=== PATIENT | male | born 1950 | race Caucasian/White ===

== ENCOUNTER 2020-01-10 11:14 | Emergency (ER) | payer OTHER, SELFPAY ==
[2020-01-10 11:26] VITALS: BP 155/103; PULSE 74; RESP 16; TEMP 36.4; O2SAT 97; BMI 24.5
--- NOTE | 2020-01-10 11:29 | PC.NURSE ---
Addendum entered by Ondina Hylton R.N. 01/10/20 11:30: on arrival, ambulate with steady gait, when laying down, pt unable to hyperflexion of left foot. Original Note: pt reports, fell between bail of hay, 3 weeks ago, since then unable to hyperextend left foot, denies feeling snap or popping of left foot. has been taking acetaminophen with relief.
--- NOTE | 2020-01-10 11:44 | DI.RAD.S_ITS ---
PROCEDURE: XR ANKLE LT MIN 3V INDICATIONS: pain after twisting TECHNIQUE: 3 views of the ankle were acquired. COMPARISON: [facility], CR, XR FOOT LT MIN 3V, 01/10/2020, 11:40. FINDINGS: Bones: No fractures or dislocations. Ankle mortise is normally aligned. No suspicious bony lesions. The talar dome demonstrates no leandro abnormality. Soft tissues: No tibiotalar joint effusion. Achilles tendon appears normal. IMPRESSION: No acute plain film abnormality can be seen. Dictated by: Stanford Candelaria M.D. on 01/10/2020 at 11:11 Approved by: Stanford Candelaria M.D. on 01/10/2020 at 11:12
--- NOTE | 2020-01-10 11:44 | DI.RAD.S_ITS ---
PROCEDURE: XR FOOT LT MIN 3V INDICATIONS: pain after twist TECHNIQUE: 3 views of the foot were acquired. COMPARISON: None. FINDINGS: Bones: No fractures or dislocations. No suspicious bony lesions. Soft tissues: No tibiotalar joint effusion. Achilles tendon appears normal. IMPRESSION: No displaced fractures are seen on these plain films. If there is focal tenderness, or other clinical concern for a fracture not seen on these images in this patient with a given history of trauma, please consider a dedicated CT or a short-term followup plain film series (in 1-2 weeks) for further evaluation. Dictated by: Stanford Candelaria M.D. on 01/10/2020 at 11:07 Approved by: Stanford Candelaria M.D. on 01/10/2020 at 11:07
--- NOTE | 2020-01-10 11:58 | ED_ITS ---
HPI - Extremity Injury (Lower) <DANICA Levine - Last Filed: 01/10/20 15:24> General Chief Complaint: Extremity Injury, Lower Stated Complaint: trouble walking/ left foot Time Seen by Provider: 01/10/20 11:25 Source: patient and family Mode of arrival: Ambulatory Limitations: no limitations History of Present Illness HPI Narrative: The patient is a 69-year-old current smoker who denies pertinent medical history presents with a chief complaint of left foot and ankle pain and problems since 3 weeks ago. He states that he post hold with his left leg into a hay and then fell, since then he has had trouble with pain off and on in his foot and ankle as well as trouble picking his toes up to his nose. He states that his range of motion improves Blood when he takes Tylenol. He has not had Tylenol in a few days. He denies any popping or cracking at this point time. Denies any other injury from the fall. He does not have a primary care provider. Related Data Allergies Allergy/AdvReac Type Severity Reaction Status Date / Time No Known Drug Allergies Allergy Verified 01/10/20 13:44 Review of Systems <DANICA Levine - Last Filed: 01/10/20 15:24> Review of Systems Narrative: GENERAL: Denies chills, fatigue, malaise, fever, sweats. HEENT: Denies sinus pain, ear pain, sore throat, difficulty swallowing, dizziness. RESPIRATORY: Denies dyspnea, cough, wheezing, hemoptysis, sputum. CARDIOVASCULAR: Denies chest pain, palpitations, orthopnea, edema, GASTROINTESTINAL: Denies nausea, vomiting, abdominal pain, diarrhea, constipation, melena. : Denies dysuria, frequency, incontinence, hematuria, urinary retention. MUSCULOSKELETAL: See HPI SKIN: Denies rash, skin lesions, or other NEUROLOGIC: Denies weakness, headache, numbness, change in speech, confusion, seizures, incoordination. PSYCHIATRIC: No concerning psychosocial issues. 12 point review of systems is negative except for those stated above Patient History <DANICA Levine - Last Filed: 01/10/20 15:24> Social History Smoking Status: Current every day smoker Smoking Status: Current every day smoker alcohol intake frequency: 0-2 drinks per day Substance Use Type: does not use Exam <BRIANDA LevineP-BC - Last Filed: 01/10/20 15:24> Narrative Exam Narrative: GENERAL: This is a well-nourished, well-developed patient, in mild distress. HEAD: Atraumatic. Normocephalic. No temporal or scalp tenderness. EYES: Pupils equal round and reactive. Extraocular motions intact. No scleral icterus. No injection or drainage. ENT: Nose without bleeding, purulent drainage or septal hematoma. Throat without erythema, tonsillar hypertrophy or exudate. Uvula midline. Airway patent. NECK: Trachea midline. No JVD or lymphadenopathy. Supple, nontender, no meningeal signs. CARDIOVASCULAR: Regular rate and rhythm without murmurs, gallops, or rubs. RESPIRATORY: Clear to auscultation. Breath sounds equal bilaterally. No wheezes, rales, or rhonchi. GASTROINTESTINAL: Abdomen soft, non-tender, nondistended. No hepato- splenomegaly, or palpable masses. No guarding. EXTREMITIES: Left foot swelling noted over navicular. Positive pedal pulses bilaterally. Able to fully plantar flex foot with good strength bilaterally. Decreased dorsiflexion of left ankle. Able to dorsiflex to parallel to the floor. Able to rotate left ankle. Capillary refill less than 2 seconds. Bilateral pedal pulses intact. Moving all toes. Capillary refill less than 2 seconds. Sensation intact bilateral lower extremities BACK: Nontender without deformity or crepitance. No flank tenderness. No pain to CT or L-spine palpation. NEURO: AOx3. SKIN: No rash or erythema on visible skin Initial Vital Signs Initial Vital Signs: Vital Signs Temperature 97.5 F L 01/10/20 11:26 Pulse Rate 74 01/10/20 11:26 Respiratory Rate 16 01/10/20 11:26 Blood Pressure 155/103 H 01/10/20 11:26 Pulse Oximetry 97 01/10/20 11:26 <Lester Coffman DO - Last Filed: 01/11/20 07:05> Initial Vital Signs Initial Vital Signs: Vital Signs Temperature 97.5 F L 01/10/20 11:26 Pulse Rate 74 01/10/20 11:26 Respiratory Rate 16 01/10/20 11:26 Blood Pressure 155/103 H 01/10/20 11:26 Pulse Oximetry 97 01/10/20 11:26 Course <BRIANDA LevineP-BC - Last Filed: 01/10/20 15:24> Orders Ordered: Discontinued Medications Acetaminophen (Tylenol) 975 mg PO NOW ONE Stop: 01/10/20 11:46 Last Admin: 01/10/20 12:50 Dose: Not Given Documented by: MEISENB Acetaminophen (Tylenol) 975 mg PO NOW ONE Stop: 01/10/20 13:01 Last Admin: 01/10/20 13:20 Dose: 975 mg Documented by: MEISENB Ibuprofen (Advil) 800 mg PO NOW ONE Stop: 01/10/20 12:38 Last Admin: 01/10/20 12:50 Dose: Not Given Documented by: MEISENB Ibuprofen (Advil) 800 mg PO NOW ONE Stop: 01/10/20 13:01 Last Admin: 01/10/20 13:20 Dose: 800 mg Documented by: MEISENB Ketorolac Tromethamine (Toradol) 30 mg IM NOW ONE Stop: 01/10/20 12:17 Last Admin: 01/10/20 12:50 Dose: Not Given Documented by: ANISHSENB Reevaluation(s) Reevaluation #1: Discussed negative x-rays with patient. Patient continues to have left-sided footdrop. He again states that it improves after Tylenol at home. Patient declined Tylenol here. Discussed with patient that I want to see if his foot drop improves after medications as he states that dose at home. Patient then agrees to medications. Vital Signs Vital signs: Vital Signs - 8 hr 01/10/20 11:26 01/10/20 12:46 Temperature 97.5 F L Pulse Rate 74 56 L Respiratory Rate 16 18 Blood Pressure 155/103 H Blood Pressure [Right Arm] 126/73 Pulse Oximetry 97 <Lester Coffman DO - Last Filed: 01/11/20 07:05> Orders Ordered: Discontinued Medications Acetaminophen (Tylenol) 975 mg PO NOW ONE Stop: 01/10/20 11:46 Last Admin: 01/10/20 12:50 Dose: Not Given Documented by: MEISENB Acetaminophen (Tylenol) 975 mg PO NOW ONE Stop: 01/10/20 13:01 Last Admin: 01/10/20 13:20 Dose: 975 mg Documented by: MEISENB Ibuprofen (Advil) 800 mg PO NOW ONE Stop: 01/10/20 12:38 Last Admin: 01/10/20 12:50 Dose: Not Given Documented by: MEISENB Ibuprofen (Advil) 800 mg PO NOW ONE Stop: 01/10/20 13:01 Last Admin: 01/10/20 13:20 Dose: 800 mg Documented by: ANISHSENAzul Ketorolac Tromethamine (Toradol) 30 mg IM NOW ONE Stop: 01/10/20 12:17 Last Admin: 01/10/20 12:50 Dose: Not Given Documented by: ANISHSENAzul Vital Signs Vital signs: Vital Signs - 8 hr 01/10/20 11:26 01/10/20 12:46 Temperature 97.5 F L Pulse Rate 74 56 L Respiratory Rate 16 18 Blood Pressure 155/103 H Blood Pressure [Right Arm] 126/73 Pulse Oximetry 97 MDM - Extremity Injury (Lower) <DANICA Levine - Last Filed: 01/10/20 15:24> Imaging Data Extremity x-ray #1: Radiologist's Impression: [address] [place] [id number] XRay Report Signed Patient: Mabel AlcantaraMR#: [id number] : 3Acct:[id number] Age/Sex: 69 / MDate of Service: 01/10/20 Loc: ED Accession Number: [id number] Procedure: XR foot LT min 3V Ordering Provider: Aileen Cleveland PROCEDURE: XR FOOT LT MIN 3V INDICATIONS: pain after twist TECHNIQUE: 3 views of the foot were acquired. COMPARISON: None. FINDINGS: Bones: No fractures or dislocations. No suspicious bony lesions. Soft tissues: No tibiotalar joint effusion. Achilles tendon appears normal. IMPRESSION: No displaced fractures are seen on these plain films. If there is focal tenderness, or other clinical concern for a fracture not seen on these images in this patient with a given history of trauma, please consider a dedicated CT or a short-term followup plain film series (in 1-2 weeks) for further evaluation. Dictated by: Stanford Candelaria M.D. on 01/10/2020 at 11:07 Approved by: Stanford Candelaria M.D. on 01/10/2020 at 11:07 Extremity x-ray #2: Radiologist's Impression: [address] [place] [id number] XRay Report Signed Patient: Mabel AlcantaraMR#: [id number] : 3Acct:[id number] Age/Sex: 69 / MDate of Service: 01/10/20 Loc: ED Accession Number: [id number] Procedure: XR ankle LT min 3V Ordering Provider: Aileen Cleveland PROCEDURE: XR ANKLE LT MIN 3V INDICATIONS: pain after twisting TECHNIQUE: 3 views of the ankle were acquired. COMPARISON: Located [facility], CR, XR FOOT LT MIN 3V, 01/10/2020, 11:40. FINDINGS: Bones: No fractures or dislocations. Ankle mortise is normally aligned. No suspicious bony lesions. The talar dome demonstrates no leandro abnormality. Soft tissues: No tibiotalar joint effusion. Achilles tendon appears normal. IMPRESSION: No acute plain film abnormality can be seen. Dictated by: Stanford Candelaria M.D. on 01/10/2020 at 11:11 Approved by: Stanford Candelaria M.D. on 01/10/2020 at 11:12 [facility] Narrative Medical decision making narrative: The patient is a 69-year-old male who presents with a chief complaint of an injury to his ankle and foot 3 weeks ago when he is post holed in hay. He immediately developed a footdrop after that in [facility]. X-ray showed no acute findings. He states improvement with [id number] medications as needed and able at home. It is likely that he developed atraumatic drop foot. After ibuprofen and Tylenol, the patient is able to dorsiflex to parallel to the floor. I discussed at length the importance of following up with primary care provider coming back to the emergency department for any acute concerns. The patient was repeatedly asking to leave throughout his stay in the emergency department. He initially declined his medications. I discussed at length coming back to the emergency department for any acute concerns such as concern of heart attack or stroke. Patient have no questions upon discharge and state understanding return precautions as well as follow-up care. Given contact information Located [facility] health [employer]. Discharge Plan Departure Patient Disposition: Home Clinical Impression: Ankle pain, left Qualifiers: Chronicity: acute Qualified Code(s): M25.572 - Pain in left ankle and joints of left foot Foot drop Qualifiers: Laterality: left Qualified Code(s): M21.372 - Foot drop, left foot Discharge Date/Time: 01/10/20 14:25 Instructions: How To Perform RICE (Rest, Ice, Compress, Elevate), DI for Ankle Pain, DI for Foot Pain Activity Restrictions/Additional Instructions: As I discussed, your x-ray shows no acute fracture. This does not rule out a soft tissue injury such as a ligament or tendon injury. It is important that you follow up with primary care provider, especially if worsening or no improvement. There can be fractures that did not show up on initial x-ray. As discussed, please follow-up with primary care provider in the next few days. I have given contact information [facility] [employer] resource teacher they can help you match with primary care provider. Please use rest ice compression elevation as well as [id number] pain medications as needed and able Please come back to the emergency department for any acute concerns such as concern of heart attack or stroke Referrals: [facility] [Outside] <Lester Coffman DO - Last Filed: 01/11/20 07:05> Cosign ED Attending Cosignature Attestation: I was immediately available in the department for consultation. This documentation has been reviewed and I agree with assessment and plan. Supervised by Lester Coffman DO
[2020-01-10 12:46] VITALS: BP 126/73; PULSE 56; RESP 18
--- NOTE | 2020-01-10 12:47 | PC.NURSE ---
deferred pain medications at this time, pain free.
[2020-01-10] MEDS: IBUPROFEN 400 MG TABLET 800 MG PO (13:20)
[2020-01-10] MEDS: ACETAMINOPHEN 325 MG TABLET 975 MG PO (13:20)
== END 2020-01-10 14:25 | disposition home or self-care (01) ==
PROVIDERS: Emergency Provider Nurse Practitioner Family
DX: M25.572 Pain in left ankle and joints of left foot (principal); M21.372 Foot drop, left foot
CPT/HCPCS: 73610; 73630; 99283

== ENCOUNTER → 2020-02-25 06:52 | Outpatient (CLI) | payer OTHER, SELFPAY ==
[2020-02-25 09:27] LABS: Alanine Aminotransferase 20 IU/L (<50); Albumin 4.3 g/dL (3.5-5.0); Albumin Globulin Ratio 1.7 (1.0-2.8); Alkaline Phosphatase 69 U/L (38-126); Aspartate Aminotransferase 30 IU/L (17-59); BUN Creatinine Ratio 16.3 (6-22); Bilirubin Total 0.6 mg/dL (0.2-1.3); Blood Urea Nitrogen 16 mg/dL (9-20); Calcium 9.6 mg/dL (8.4-10.2); Carbon Dioxide 28 mmol/L (22-32); Chloride 105 mmol/L (98-107); Cholesterol 204 mg/dL (140-199); Estimated Glomerular Filt Rate > 60.0 mL/min (>60); Globulin 2.6 g/dL (1.7-4.1); Glucose 88 mg/dL (80-110); HDL Cholesterol 46 mg/dL (40-60); HEMOLYSIS < 15 (0-50); LDL Cholesterol Calculated 138 mg/dL (<100); Sodium 138 mmol/L (137-145); Total Protein 6.9 g/dL (6.3-8.2); Triglycerides 101 mg/dL (35-150)
[2020-02-25 09:52] LABS: Prostate Specific Antigen Scrn 3.33 ng/mL (0.1-4.0)
== END ==
PROVIDERS: PCP Internal Medicine; Referring Provider Internal Medicine; Visit Provider Internal Medicine
DX: Z13.1 Encounter for screening for diabetes mellitus (principal); Z13.220 Encounter for screening for lipoid disorders; Z13.6 Encounter for screening for cardiovascular disorders; Z12.5 Encounter for screening for malignant neoplasm of prostate
CPT/HCPCS: 36415; 80053; 80061; G0103

== ENCOUNTER → 2020-03-15 17:36 | Outpatient (CLI) | payer OTHER, SELFPAY ==
[2020-03-16 11:36] LABS: Fecal Immunochemical Test Negative (Negative)
== END ==
PROVIDERS: PCP Internal Medicine; Referring Provider Internal Medicine; Visit Provider Internal Medicine
DX: Z12.11 Encounter for screening for malignant neoplasm of colon (principal)
CPT/HCPCS: 82274

== ENCOUNTER → 2020-11-22 15:19 | Outpatient (CLI) | payer OTHER, SELFPAY ==
[2020-11-22] MEDS: COVID-19 VACC #1, MRNA(MOD) 100 MCG/0.5 ML VIAL IM (15:33)
== END ==
PROVIDERS: PCP Internal Medicine; Visit Provider Internal Medicine
DX: Z23 Encounter for immunization (principal)
CPT/HCPCS: 0011A; 91301

== ENCOUNTER → 2020-12-21 16:23 | Outpatient (CLI) | payer OTHER, SELFPAY ==
[2020-12-21] MEDS: COVID-19 VACC #2, MRNA(MOD) 100 MCG/0.5 ML VIAL IM (16:29)
== END ==
PROVIDERS: PCP Internal Medicine; Visit Provider Internal Medicine
DX: Z23 Encounter for immunization (principal)
CPT/HCPCS: 0012A; 91301

== ENCOUNTER → 2021-10-10 14:57 | Outpatient (CLI) | payer OTHER, SELFPAY ==
[2021-10-10 16:03] LABS: Add Manual Diff / Slide Review NO; Basophils Absolute Auto 100 /uL (0-100); Basophils Percent Auto 0.6 % (0-2); Eosinophils Absolute Auto 200 /uL (0-450); Eosinophils Percent Auto 2.1 % (2-4); Hematocrit 41.3 % (41-53); Hemoglobin 14.1 g/dL (13.5-17.5); Lymphocytes Absolute Auto 2600 /uL (1100-4500); Lymphocytes Percent Auto 28.7 % (25-40); Mean Corpuscular HGB Conc 34.1 % (30-36); Mean Corpuscular Hemoglobin 30.6 PG (26-34); Mean Corpuscular Volume 89.7 fL (80-100); Monocytes Absolute Auto 900 /uL (0-900); Monocytes Percent Auto 9.6 % (3-14); Neutrophils Absolute Auto 5400 /uL (1500-7000); Platelet Count 285 X10^3/uL (150-400); Red Cell Distribution Width 14.5 % (11.6-14.8); White Blood Cell Count 9.1 X10^3/uL (4.5-11.0)
[2021-10-10 16:22] LABS: Erythrocyte Sedimentation Rate 12 MM/HR (0-15)
[2021-10-10 16:39] LABS: Alanine Aminotransferase 19 IU/L (<50); Albumin 4.3 g/dL (3.5-5.0); Albumin Globulin Ratio 1.4 (1.0-2.8); Alkaline Phosphatase 48 U/L (38-126); Aspartate Aminotransferase 28 IU/L (17-59); BUN Creatinine Ratio 13.2 (6-22); Bilirubin Total 0.5 mg/dL (0.2-1.3); Blood Urea Nitrogen 12 mg/dL (9-20); Calcium 9.2 mg/dL (8.4-10.2); Carbon Dioxide 26 mmol/L (22-32); Chloride 106 mmol/L (98-107); Estimated Glomerular Filt Rate > 60.0 mL/min (>60); Glucose 80 mg/dL (80-110); HEMOLYSIS < 15 (0-50); Potassium 4.2 mmol/L (3.4-5.1); Sodium 135 mmol/L (137-145); Total Protein 7.3 g/dL (6.3-8.2)
[2021-10-10 17:24] LABS: C-Reactive Protein Quant < 0.5 mg/dL (<1.0)
== END ==
PROVIDERS: PCP Internal Medicine; Referring Provider Internal Medicine; Visit Provider Internal Medicine
DX: F09 Unspecified mental disorder due to known physiological condition (principal); R41.3 Other amnesia
CPT/HCPCS: 36415; 80053; 85025; 85651; 86140

== ENCOUNTER 2023-05-05 14:24 | Emergency (ER) | payer OTHER, SELFPAY ==
[2023-05-05 14:27] VITALS: BP 178/81; PULSE 52; RESP 16; TEMP 36.8; O2SAT 100; BMI 25.8
--- NOTE | 2023-05-05 14:32 | DI.RAD.S_ITS ---
PROCEDURE: XR ANKLE RT MIN 3V INDICATIONS: fall, unable to bear weight TECHNIQUE: 3 views of the ankle were acquired. COMPARISON: [facility], CR, XR ANKLE LT MIN 3V, 01/10/2020, 11:40. FINDINGS: Bones: Apparent mildly displaced fractures can be seen involving the anterior calcaneus on the lateral view. Ankle mortise is normally aligned. No suspicious bony lesions. The talar dome demonstrates no leandro abnormality. Soft tissues: Mild soft tissue swelling is seen. IMPRESSION: Apparent anterior calcaneus fracture lines seen on the lateral view. Please correlate with focal tenderness. If clinically appropriate, a follow-up ankle CT could be considered for further evaluation. Dictated by: Stanford Candelaria M.D. on 05/05/2023 at 14:51 Approved by: Stanford Candelaria M.D. on 05/05/2023 at 14:52
--- NOTE | 2023-05-05 15:07 | ED.FALL ---
HPI - Fall <Tavia Chris PA-C - Last Filed: 05/05/23 16:28> General Chief Complaint: Fall Stated Complaint: fell down from stairs, rt leg/ankle injury Time Seen by Provider: 05/05/23 14:35 Source: patient Mode of arrival: Ambulatory History of Present Illness HPI Narrative: 72-year-old male with no past medical history here in the ED for a right ankle injury that occurred this morning at 11:30 a.m.. States he was walking down a set of stairs that had wet paint on them when he slipped and rolled his right ankle and fell down the remaining 3 stairs. He did scrape his knee and elbow slightly while sliding down the stairs but denies any pain or limited function of these areas. His main concern is his right ankle as he can not bear any weight. States pain is 10/10 when he tries to apply weight to his right ankle. No prior injury or surgery to the affected area. He denies hitting his head or LOC. He is not on any blood thinners. Related Data Previous Rx's Medication Instructions Recorded citalopram 10 mg tablet 30 mg PO DAILY #270 tabs 09/27/22 Allergies Allergy/AdvReac Type Severity Reaction Status Date / Time No Known Drug Allergies Allergy Verified 05/05/23 14:27 Review of Systems <Tavia Chris PA-C - Last Filed: 05/05/23 16:28> Review of Systems ROS Unobtainable: All systems reviewed & are unremarkable except as noted in HPI and below Patient History <Tavia Chris PA-C - Last Filed: 05/05/23 16:28> Medical History (Updated 05/05/23 @ 16:21 by Tavia Chris PA-C) Generalized anxiety disorder Hearing loss Vision disorder Surgical History (Updated 02/28/20 @ 19:40 by Zeinab Jones) Anesthesia S/P tonsillectomy and adenoidectomy (~1960) Family History (Updated 02/28/20 @ 19:40 by Zeinab Jones) Mother Diabetes mellitus Heart disease Father Heart disease Social History Smoking Status: Current every day smoker Smoking Status: Current every day smoker alcohol intake frequency: 0-2 drinks per day Substance Use Type: does not use Exam <Tavia Chris PA-C - Last Filed: 05/05/23 16:28> Narrative Exam Narrative: GENERAL: [72] year old patient appears stated age. Well-developed patient, in no acute distress. HEAD: Atraumatic. Normocephalic. EYES: Pupils equal round and reactive. Extraocular motions intact. No scleral icterus. No injection or drainage. ENT: Nose without bleeding, purulent drainage. Airway patent. NECK: Trachea midline. Non tender RESPIRATORY: Respiratory rate and effort normal GASTROINTESTINAL: Abdomen soft, non-tender, nondistended. EXTREMITIES: Right lateral ankle with significant swelling and ecchymosis. Pinpoint tenderness present over the inferior lateral malleolus. Patient unable to bear weight on the right/ankle. No additional swelling or tenderness over the remaining foot. Neurovascular intact. Range of motion exam limited due to patient's pain. Exam of the right knee and right elbow unremarkable. BACK: Nontender without deformity or crepitance. No flank tenderness. NEURO: AOx3. SKIN: No rash or erythema of visible areas Initial Vital Signs Initial Vital Signs: Vital Signs Temperature 98.3 F 05/05/23 14:27 Pulse Rate 52 L 05/05/23 14:27 Respiratory Rate 16 05/05/23 14:27 Blood Pressure 178/81 H 05/05/23 14:27 Pulse Oximetry 100 05/05/23 14:27 Oxygen Delivery Method Room Air 05/05/23 14:27 <DO Robin Freeman Last Filed: 05/05/23 16:38> Initial Vital Signs Initial Vital Signs: Vital Signs Temperature 98.3 F 05/05/23 14:27 Pulse Rate 52 L 05/05/23 14:27 Respiratory Rate 16 05/05/23 14:27 Blood Pressure 178/81 H 05/05/23 14:27 Pulse Oximetry 100 05/05/23 14:27 Oxygen Delivery Method Room Air 05/05/23 14:27 Course <TROY Carpenter Last Filed: 05/05/23 16:28> Orders Ordered: ED Orders 05/05/23 14:32 XR ankle RT min 3V Stat Vital Signs Vital signs: Vital Signs - 8 hr 05/05/23 14:27 Temperature 98.3 F Pulse Rate 52 L Respiratory Rate 16 Blood Pressure 178/81 H Pulse Oximetry 100 Oxygen Delivery Method Room Air <DO Robin Freeman Last Filed: 05/05/23 16:38> Orders Ordered: ED Orders 05/05/23 14:32 XR ankle RT min 3V Stat Vital Signs Vital signs: Vital Signs - 8 hr 05/05/23 14:27 Temperature 98.3 F Pulse Rate 52 L Respiratory Rate 16 Blood Pressure 178/81 H Pulse Oximetry 100 Oxygen Delivery Method Room Air MDM - Fall <Tavia Gibson TROY Chris - Last Filed: 05/05/23 16:28> Imaging Data Extremity x-ray #1: Radiologist's Impression: [address] [address] XRay Report Signed Patient: Mabel Alcantara MR#: [id number] : 1950 Acct:[id number] Age/Sex: 72 / M Date of Service: 05/05/23 Loc: ED Accession Number: [id number] ?? Procedure: XR ankle RT min 3V Ordering Provider: Phuc Paulson D.O. PROCEDURE:? XR ANKLE RT MIN 3V ? INDICATIONS:? fall, unable to bear weight ? TECHNIQUE:? 3 views of the ankle were acquired.? ? COMPARISON:? [facility], CR, XR ANKLE LT MIN 3V, 01/10/2020, 11:40. ? FINDINGS:? ? Bones:? Apparent mildly displaced fractures can be seen involving the anterior calcaneus on the lateral view. ? Ankle mortise is normally aligned.? No suspicious bony lesions.? The talar dome demonstrates no leandro abnormality.? ? Soft tissues:? Mild soft tissue swelling is seen. ? ? IMPRESSION:? Apparent anterior calcaneus fracture lines seen on the lateral view. ? Please correlate with focal tenderness. ? If clinically appropriate, a follow-up ankle CT could be considered for further evaluation. ? Dictated by: Stanford Candelaria M.D. on 05/05/2023 at 14:51 ? ? Approved by: Stanford Candelaria M.D. on 05/05/2023 at 14:52 ? [facility] Narrative Medical decision making narrative: 72-year-old male with no significant past medical history here for a right ankle injury. He slipped and fell on a set of stairs with wet paint and slid down the remaining 3 steps. When he slipped he rolled his right ankle outward and felt an immediate pop and pain. He denies any other injury, did not hit his head, no LOC, did not strike his heel or injure his back in any way. On exam his right lateral ankle is moderately swollen with ecchymosis and pinpoint tenderness to the inferior malleolus. The remaining foot exam is unremarkable. No tenderness on the heel. No knee hip or back pain. An x-ray of the right ankle was performed which showed no obvious fracture of the area of concern. There was a finding of possible anterior calcaneus fracture but this does not correlate at all with his symptoms or presentation or mechanism of injury. Placed patient in a ankle stirrup splint and advised nonweightbearing with crutches and follow up with PCP in the next week or so to ensure proper healing. Recommend PT if possible to rehab the ankle. If persistent pain or noticing pain on the heel once he becomes weight-bearing he should follow up with PCP for additional imaging. [] Multiple etiologies for patient's symptoms considered including, but not limited to: Fracture, sprain, tendon rupture Patient's symptoms improved over duration of stay with above-stated therapies. Findings and discharge diagnosis discussed with patient/family followed by verbalization of understanding Return precautions discussed with patient/family whom verbalize understanding of diagnosis and plan Discharge Plan Departure Patient Disposition: Home Clinical Impression: Ankle sprain Qualifiers: Encounter type: initial encounter Laterality: right Instructions: Ankle Sprain, DI for Ankle Sprain Activity Restrictions/Additional Instructions: You were seen in the emergency department today for an ankle injury to right ankle. The x-ray showed no obvious fracture today so you are being diagnosed with an ankle sprain. Your ankle was placed in a splint with an Andrea wrap. We discussed at home treatment with rest, ice, compression, elevation and ibuprofen 600 mg every 6-8 hours for swelling and pain. You were also given crutches and advised on safe crutch use. Please remain nonweightbearing for the next 3-5 days possibly longer. After 2-3 days you may start performing gentle [id number]-[id number] exercises with her ankle. Please follow-up with your PCP in the next week or so to recheck your ankle and discuss return to normal activities. If you have continued and persistent pain that is not improving over the next week please discuss further imaging and evaluation with your PCP. Prescriptions: No Action citalopram 10 mg tablet 30 mg PO DAILY Qty: 270 3RF Referrals: Lex River MD [Primary Care Provider] - Stand Alone Forms: Patient Portal/API <Phuc Paulson, - Last Filed: 05/05/23 16:38> Cosign ED Attending Cosignature Attestation: Dr Paulson Co-Sign Statement: I was available for consultation during this patient's emergency department visit. This chart is signed by myself for administrative purposes only. I did not have direct contact with this patient during this visit. They were seen independently by the APC.
[2023-05-05 16:30] VITALS: BP 143/76; PULSE 51; RESP 16; O2SAT 99
== END 2023-05-05 16:44 | disposition home or self-care (01) ==
PROVIDERS: Emergency Provider Physician Assistant; PCP Internal Medicine
DX: S93.401A Sprain of unspecified ligament of right ankle, initial encounter (principal); W10.9XXA Fall (on) (from) unspecified stairs and steps, initial encounter; Y93.9 Activity, unspecified; Y92.9 Unspecified place or not applicable
CPT/HCPCS: 73610; 99282; 99283

== ENCOUNTER 2023-08-02 07:30 | Outpatient (RCR) | payer OTHER, SELFPAY ==
--- NOTE | 2023-06-18 16:45 | PT.OIE ---
Current Diagnoses Sprain of unspecified ligament of right ankle, initial encounter (06/18/23) Past Medical History (Last Updated 02/08/22 @ 10:30 by Lex River MD) Generalized anxiety disorder Hearing loss Vision disorder Past Surgical History (Last Updated 02/28/20 @ 19:40 by Zeinab Jones) Anesthesia S/P tonsillectomy and adenoidectomy (~1960) Visit Care Team Role Provider Type Lex River MD Attending Provider Physician Family Provider Primary Care Provider Referring Provider Specialty: Internal Medicine Address: [address] [place] [address], [address], [facility] Email: [email or web address] Physical Therapy Initial Evaluation PT-OP-A Visit Information Start: 06/18/23 15:26 Freq: Status: Active Protocol: Document 06/18/23 15:27 NM (Rec: 06/18/23 16:44 NM [id number]) Out-Patient Physical Therapy Visit Information Visit Information Visit Type Initial Evaluation Visit Start Time 09:45 Visit Stop Time 10:30 Total Visit Minutes 45 Visit Number 1 Evaluation Information Evaluation Date 06/18/23 Precautions Precautions 05/05/23: radiograph of R anterior calcaneus fracture PT-OP-B Current Condition Start: 06/18/23 15:26 Freq: Status: Active Protocol: Document 06/18/23 15:27 NM (Rec: 06/18/23 16:44 NM [id number]) Current Condition History of Current Condition Onset Date 05/05/23 Current Complaints weakness, difficulty with ambulation, pain, swelling History of Current Condition Pt was walking down his deck stairs when he tripped and fell down several feet to the ground, landing on hi R leg. He was unable to weight bear immediately upon impact and had to be carried into the house by 2 people. Pt then went to the ED the same day where he was evaluated for an ankle fracture; radiographs reveal an anterior calcaneus fracture of the R ankle, but no fractures to the foot. Pt followed up with Dr. River who dx a Grade III sprain and instructed pt to rest, ice, and perform gentle ankle mobility exercises. Pt usually wears a neoprene sleeve for comfort on his R ankle. Currently, pt is able to ambulate household distances using a straight cane. He reports that he was doing better over the past week with his swelling, pain and mobility; however, he did yard work this past Saturday, re- aggravating the injury. Prior Treatments and Tests 05/05/23: Radiograph of R ankle - anterior calcaneus fracture lines 05/05/23: Radiograph of R foot - no displaced fracture Future Testing and Treatments Planned Pt is planning to follow up with Dr. River and is seeking an MRI Treatment Goals Patient/Caregiver Goals To walk again Do yard work again Prior Functional Status Baseline Function- ADL's Independent Baseline Function- Mobility Independent Baseline Function- Gait Did not use an assistive device Current Functional Impairments (Reported) Functional Limitations- ADL's Unable to perform stairs Functional Limitations- Mobility/Gait Unable to ambulate > 100ft without a cane and without pain Functional Limitations- Recreation/ Unable to perform yardwork due Hobbies to pain and weakness PT-OP-C Subjective Start: 06/18/23 15:26 Freq: Status: Active Protocol: Document 06/18/23 15:27 NM (Rec: 06/18/23 16:44 NM [id number]) Patient Questionnaires Foot & Ankle Ability Measure- ADL and Sports FAAM-ADL Score 32/84 Lower Extremity Functional Scale LEFS Score 3/8 OP-PT Pain Assessment Pain Assessment Grid Paper Pain Assessment Grid Completed Yes Location R ankle Intensity 6 Scale Used Numeric (0 - 10) Description Sharp,With Movement Description- Other worst 6-8/10 Frequency Constant Pain Duration lasting minutes Radiating Location to dorsum of foot Pain Aggravating Factors Activity,Exercise,Standing, Walking,Stair Climbing Other Pain Aggravating Factors yard work Pain Alleviating Factors Cold,Elevation Home Pain Medication Use Pain Medications Used No: usually does not medicate except occasional tylenol/ ibuprofen Home Pain Medication Frequency rare Pain Behaviors Pain Behaviors Guarding PT-OP-D Balance Start: 06/18/23 15:26 Freq: Status: Active Protocol: Document 06/18/23 15:27 NM (Rec: 06/18/23 16:44 NM [id number]) OP-PT Balance Assessment Standing Balance Static Standing Balance Ability Fair Dynamic Standing Balance Ability Poor Device Used cane Balance Tests Single Limb Standing Single Limb- Right 0 Single Limb- Left 0 Allen Fall Scale Copyright Permission PT-OP-E Functional Tests Start: 06/18/23 15:26 Freq: Status: Active Protocol: Document 06/18/23 15:27 NM (Rec: 06/18/23 16:44 NM [id number]) Functional Tests Five Times Sit to Stand Test Score 13 sec Comments requires cane for balance PT-OP-F Manual Assessment Start: 06/18/23 15:26 Freq: Status: Active Protocol: Document 06/18/23 15:27 NM (Rec: 06/18/23 16:44 NM [id number]) Manual Assessments Soft Tissue Assessment Soft Tissue Mobility Assessment Mild painful plantarflexion ( full and 10-15 deg) + inversion. No pain with dorsiflexion + inversion. No pain with eversion + dorsiflexion or plantarflexion ranges. Joint Mobility Assessment Joint Mobility Assessment Good accessory joint motion at talocrural, subtalar joints. Limited ray mobility on R foot . PT-OP-G Mobility & Gait Start: 06/18/23 15:26 Freq: Status: Active Protocol: Document 06/18/23 15:27 NM (Rec: 06/18/23 16:44 NM [id number]) OP Gait Assessment Gait Gait Assistance Required: Independent Distance (Feet) 100 Able to Maintain Weight Bearing Status Yes During Gait Assistive Devices Assistive Device Straight Cane Orthotic/Prosthetic Devices or Brace: No Gait Deviations General Gait Pattern Antalgic,Decreased Stride Length,Wide Based Gait Factors Limiting Gait Function Factors Limiting Gait Function Decreased Strength,Limited Range of Motion,Pain Comments Gait Comments Pt presented with cane on R side. Educated during evaluation on correct placement on L side to offload RLE during stance. Overall, antalgic gait with wider stance for stability. PT-OP-H Neuro Start: 06/18/23 15:26 Freq: Status: Active Protocol: Document 06/18/23 15:27 NM (Rec: 06/18/23 16:44 NM [id number]) Sensation Evaluation Comments Summary Comments Some decreased light touch sensation to dorsum of R foot compared to L foot, but no other changes to R ankle/foot. PT-OP-J Posture/Palpation/Skin Start: 06/18/23 15:26 Freq: Status: Active Protocol: Document 06/18/23 15:27 NM (Rec: 06/18/23 16:44 NM [id number]) Posture Evaluation Position Standing Evaluation View Lateral Head/C-Spine Posture Flexed Shoulder Posture (L) Forward,(R) Forward Pelvis Posture Neutral Weight Distribution Weight Shifted Left,Decreased Wt.Bear on (R) Ankle/Foot Posture (R) Pronated,(R) Calcaneal Eversion Palpation Assessment Location R ankle Palpation Location medial, lateral, dorsum Palpation Findings Edema,Soft Tissue Tightness, Muscle Guarding,Tenderness Palpation Details Moderate swelling on R ankle compared to L ankle. R ankle appears bruised and purple compared to L ankle. No tenderness at R medial or lateral malleoli; no tenderness at R fibular head or navicular or 5th metatarsal . Skin Assessment Circumference Measurement L ankle Measurement (Centimeters) 54 Comments figure 8 R ankle Measurement (Centimeters) 59 Comments figure 8 PT-OP-K Range of Motion Start: 06/18/23 15:26 Freq: Status: Active Protocol: Document 06/18/23 15:27 NM (Rec: 06/18/23 16:44 NM [id number]) Knee Goniometric Range of Motion Knee L knee Knee ROM WFL Yes R knee Knee ROM WFL Yes Ankle and Foot Goniometric Range of Motion Ankle and Foot L ankle Ankle/Foot ROM WFL Yes Testing Position Sitting Dorsiflexion with Knee Flexed 10 Plantarflexion 50 Inversion 30 Eversion 5 R ankle Ankle/Foot ROM WFL No Testing Position Sitting Dorsiflexion with Knee Flexed 3 Plantarflexion 50 Inversion 5 Eversion 10 Comments dorsiflexion and inversion are painful Toe Range of Motion Toe L 1st Toe Toe ROM WFL No MTP Flexion Active (degrees) 45 MTP Extension Active (degrees) 20 R 1st Toe Toe ROM WFL No MTP Flexion Active (degrees) 40 MTP Extension Active (degrees) 20 Comments no pain with movement PT-OP-L Special Tests Start: 06/18/23 15:26 Freq: Status: Active Protocol: Document 06/18/23 15:27 NM (Rec: 06/18/23 16:44 NM [id number]) Special Tests Foot/Ankle Special Tests Syndesmotic Tear tests Test Results negative Comments ER stress test, squeeze test Talor Tilt Test Results negative Comments R ankle Anterior Draw Test Results negative Comments R ankle PT-OP-M Strength Start: 06/18/23 15:26 Freq: Status: Active Protocol: Document 06/18/23 15:27 NM (Rec: 06/18/23 16:44 NM [id number]) Hip Strength Hip Manual Muscle Testing L side Flexion (L2) 5 Normal Extension (S1) 4+ Good+ Abduction 4+ Good+ Adduction 4+ Good+ External Rotation 4+ Good+ Internal Rotation 4+ Good+ R side Flexion (L2) 5 Normal Extension (S1) 4+ Good+ Abduction 4+ Good+ Adduction 4+ Good+ External Rotation 4+ Good+ Internal Rotation 4+ Good+ Knee Strength Knee Manual Muscle Testing L side Flexion (S2) 4+ Good+ Extension (L3) 4+ Good+ R side Flexion (S2) 4- Good- Extension (L3) 4+ Good+ Ankle/Foot Strength Ankle and Foot Manual Muscle Testing L ankle Dorsiflexion (L4) 5 Normal Plantarflexion (S1) 2+ Poor+ Inversion 4 Good Eversion (S1) 4 Good Comments Unable to complete a single heel raise against gravity for plantarflexion MMT. Unable to perform single leg balance. When tested in sitting, 4/5 strength R ankle Dorsiflexion (L4) 4 Good Plantarflexion (S1) 2+ Poor+ Inversion 3+ Fair+ Eversion (S1) 3+ Fair+ Comments Pain with plantarflexion, inversion during MMT Unable to complete a single heel raise against gravity for plantarflexion MMT. When tested in sitting, 3+/5 strength (able to withstand minor resistance). Unable to perform single leg stance due to pain in weight bearing during plantarflexion testing. Toe Strength Toe Manual Muscle Testing Left Great Toe Flexion 4+ Good+ Extension 4+ Good+ Right Great Toe Flexion 4- Good- Extension 4- Good- PT-OP-Q Treatments Start: 06/18/23 15:26 Freq: Status: Active Protocol: Document 06/18/23 15:27 NM (Rec: 06/18/23 16:44 NM [id number]) Therapeutic Exercises Sitting Exercises ankle inversion Sitting Exercise Name HEP Side right Resistance peach tb (extra light) Reps/Minutes 10 Comments no pain but difficult ankle eversion Sitting Exercise Name HEP Side right Resistance peach tb (extra light) Reps/Minutes 10 Comments no pain but difficult ankle plantarflexion Sitting Exercise Name HEP Side right Resistance peach tb (extra light) Reps/Minutes 10 Comments no pain ankle dorsiflexion Sitting Exercise Name HEP Side right Resistance peach (extra light) tb Reps/Minutes 10 Comments no pain Gait Training Gait Activity Education about cane Description HEP Device Used straight cane Level of Assistance independent Surface stable Distance/Duration 100 ft Treatment Focus safety Comments PT instructed pt on correct placement of cane on L side of body during gait for safety and to assist in weight bearing while on R ankle. Pt tolerated well and demonstrated improved safety and ability to weight bear during R stance. PT-OP-T Assessment and Plan Start: 06/18/23 15:26 Freq: Status: Active Protocol: Document 06/18/23 15:27 NM (Rec: 06/18/23 16:44 NM [id number]) Physical Therapy Assessment Rehab Potential Rehabilitation Potential Good Evaluation Complexity Number of Personal Factors/Comorbidities 1-2 Number of Body Systems Impaired 1-2 Clinical Presentation at Evaluation Evolving Impairments Impairments Activity Tolerance,Balance, Edema,Functional Activities, Functional Mobility,Gait,Pain, ROM,Soft Tissue Mobility, Strength,Transfers Other Impairments Fall risk due to balance Goals Six Impairment Gait, Function Impairment Pt unable to ambulate >100 ft without pain Short Term Goal (STG) Pt will be able to ambulate at least 200 ft using LRAD for community ambulation. STG Duration 4 weeks Longterm Goal (LTG) Pt will be able to ambulate for at least 8 minutes without a break using LRAD in order to perform yard work and return to community activities . LTG Duration 8 weeks Five Impairment Balance, Function Impairment Pt is unable to complete any stairs Short Term Goal (STG) Pt will be able to complete at least 2 stairs with RLE leading and with limited UE support for balance. STG Duration 4 weeks Longterm Goal (LTG) Pt will be to complete at least 5 stairs with RLE leading and with 1 or no UE support for balance using LRAD in order to ascend/descend deck at home. LTG Duration 8 weeks Four Impairment swelling Impairment Pt is limited by moderate swelling in R ankle: figure 8 is 59 cm compared to L ankle 54 cm Short Term Goal (STG) Pt will demonstrate a decrease by at least 1 cm in R ankle swelling to allow for greater mobility. STG Duration 4 weeks Longterm Goal (LTG) Pt's R ankle circumference will be at least within 1 cm of the L ankle in order to demonstrate decreased swelling , to allow for greater weight bearing during mobility, and assist with managing pain. LTG Duration 8 weeks Three Impairment Strength Impairment Pt with 2+/5 R ankle plantarflexion strength against gravity Short Term Goal (STG) Pt will be able to perform at least 5 bilateral heel raises to demonstrate improved plantarflexion strength STG Duration 4 weeks Longterm Goal (LTG) Pt will be able to perform at least 1 unilateral heel raise on ea leg in order to demonstrate improved plantarflexion strength for foot propulsion during gait and during stairs. LTG Duration 8 weeks Two Impairment ROM Impairment Pt with limited R ankle dorsiflexion ROM (3 deg) Short Term Goal (STG) Pt will improve R ankle dorsiflexion ROM by at least 2 -3 degrees. STG Duration 4 weeks Longterm Goal (LTG) Pt will improve R ankle dorsiflexion ROM by at least 5 degrees for improved ankle stability, balance, and to promote toe clearance while advancing RLE during gait. LTG Duration 8 weeks One Impairment ROM limitations Impairment Pt with limited R ankle inversion ROM (5 deg) Short Term Goal (STG) Pt will improve R ankle inversion ROM by at least 5 degrees. STG Duration 4 weeks Longterm Goal (LTG) Pt will improve ankle inversion ROM by at least 15 degrees for improved ankle stability and balance during gait. LTG Duration 8 weeks Assessment Summary Assessment Pt is a 72 y.o. M presenting with R ankle pain s/p a fall off of his deck in April 2023. Pt went to the ED where he received radiographs showing that he has a fracture in his R calcaneus and a grade III sprain. Currently, pt is ambulating with a cane with limited weight bearing on the R ankle due to pain. There are limitations in ankle ROM/strength and some pain with movement, especially with plantarflexion and inversion; however, special tests for ankle instability are negative . Pt has difficulty with heel raises. At this time, pt is primarily limited by deficits in R ankle strength, range of motion, balance, standing, gait, swelling, and pain. Issued HEP with ankle dorsiflexion, plantarflexion, eversion, and inversion. Pt is a good candidate for skilled PT to address above deficits to promote safety, improved activity tolerance, and improve quality of life. Physical Therapy Plan Frequency and Duration Frequency of Treatment 2x/Week Duration of treatment (weeks) 8 Plan of Care Start Date 06/18/23 Plan of Care End Date 08/06/23 Therapeutic Interventions Therapeutic Interventions Balance Training,Coordination Training,Gait Training,Home Exercise Program,Joint Mobilizations,Manual Therapy, Neuromuscular Re-education, Patient/Caregiver Education, Soft Tissue Mobilization, Therapeutic Activities, Therapeutic Exercises Modalities Cold Pack/Ice Massage,Electric Stimulation,Hot Packs Other Referrals/Consults Referrals/Consults Recommended Pt instructed to follow up with Dr. River to determine if additional imaging needed. Next Visit Focus/Plan Next Note Type Treatment Note Next Visit Plan Gentle ROM, gentle strengthening. No joint mobilizations at this time. Soft tissue and edema management need to be performed. Educate on cane use again and strategies to minimize swelling.
--- NOTE | 2023-06-18 16:48 | PT.OPPOC ---
Physical, Occupational & Speech Therapy At [facility] Current Diagnoses Sprain of unspecified ligament of right ankle, initial encounter (06/18/23) Visit Care Team Role Provider Type Lex River MD Attending Provider Physician Family Provider Primary Care Provider Referring Provider Specialty: Internal Medicine Address: [address] [place] [address], [address], [address] Email: [email or web address] Plan Of Care PT-OP-T Assessment and Plan Start: 06/18/23 15:26 Freq: Status: Active Protocol: Document 06/18/23 15:27 NM (Rec: 06/18/23 16:44 NM [id number]) Physical Therapy Assessment Rehab Potential Rehabilitation Potential Good Evaluation Complexity Number of Personal Factors/Comorbidities 1-2 Number of Body Systems Impaired 1-2 Clinical Presentation at Evaluation Evolving Impairments Impairments Activity Tolerance,Balance, Edema,Functional Activities, Functional Mobility,Gait,Pain, ROM,Soft Tissue Mobility, Strength,Transfers Other Impairments Fall risk due to balance Goals Six Impairment Gait, Function Impairment Pt unable to ambulate >100 ft without pain Short Term Goal (STG) Pt will be able to ambulate at least 200 ft using LRAD for community ambulation. STG Duration 4 weeks Penitentiary Goal (LTG) Pt will be able to ambulate for at least 8 minutes without a break using LRAD in order to perform yard work and return to community activities . LTG Duration 8 weeks Five Impairment Balance, Function Impairment Pt is unable to complete any stairs Short Term Goal (STG) Pt will be able to complete at least 2 stairs with RLE leading and with limited UE support for balance. STG Duration 4 weeks Penitentiary Goal (LTG) Pt will be to complete at least 5 stairs with RLE leading and with 1 or no UE support for balance using LRAD in order to ascend/descend deck at home. LTG Duration 8 weeks Four Impairment swelling Impairment Pt is limited by moderate swelling in R ankle: figure 8 is 59 cm compared to L ankle 54 cm Short Term Goal (STG) Pt will demonstrate a decrease by at least 1 cm in R ankle swelling to allow for greater mobility. STG Duration 4 weeks Penitentiary Goal (LTG) Pt's R ankle circumference will be at least within 1 cm of the L ankle in order to demonstrate decreased swelling , to allow for greater weight bearing during mobility, and assist with managing pain. LTG Duration 8 weeks Three Impairment Strength Impairment Pt with 2+/5 R ankle plantarflexion strength against gravity Short Term Goal (STG) Pt will be able to perform at least 5 bilateral heel raises to demonstrate improved plantarflexion strength STG Duration 4 weeks Country Printer Goal (LTG) Pt will be able to perform at least 1 unilateral heel raise on ea leg in order to demonstrate improved plantarflexion strength for foot propulsion during gait and during stairs. LTG Duration 8 weeks Two Impairment ROM Impairment Pt with limited R ankle dorsiflexion ROM (3 deg) Short Term Goal (STG) Pt will improve R ankle dorsiflexion ROM by at least 2 -3 degrees. STG Duration 4 weeks Penitentiary Goal (LTG) Pt will improve R ankle dorsiflexion ROM by at least 5 degrees for improved ankle stability, balance, and to promote toe clearance while advancing RLE during gait. LTG Duration 8 weeks One Impairment ROM limitations Impairment Pt with limited R ankle inversion ROM (5 deg) Short Term Goal (STG) Pt will improve R ankle inversion ROM by at least 5 degrees. STG Duration 4 weeks Penitentiary Goal (LTG) Pt will improve ankle inversion ROM by at least 15 degrees for improved ankle stability and balance during gait. LTG Duration 8 weeks Assessment Summary Assessment Pt is a 72 y.o. M presenting with R ankle pain s/p a fall off of his deck in April 2023. Pt went to the ED where he received radiographs showing that he has a fracture in his R calcaneus and a grade III sprain. Currently, pt is ambulating with a cane with limited weight bearing on the R ankle due to pain. There are limitations in ankle ROM/strength and some pain with movement, especially with plantarflexion and inversion; however, special tests for ankle instability are negative . Pt has difficulty with heel raises. At this time, pt is primarily limited by deficits in R ankle strength, range of motion, balance, standing, gait, swelling, and pain. Issued HEP with ankle dorsiflexion, plantarflexion, eversion, and inversion. Pt is a good candidate for skilled PT to address above deficits to promote safety, improved activity tolerance, and improve quality of life. Physical Therapy Plan Frequency and Duration Frequency of Treatment 2x/Week Duration of treatment (weeks) 8 Plan of Care Start Date 06/18/23 Plan of Care End Date 08/06/23 Therapeutic Interventions Therapeutic Interventions Balance Training,Coordination Training,Gait Training,Home Exercise Program,Joint Mobilizations,Manual Therapy, Neuromuscular Re-education, Patient/Caregiver Education, Soft Tissue Mobilization, Therapeutic Activities, Therapeutic Exercises Modalities Cold Pack/Ice Massage,Electric Stimulation,Hot Packs Other Referrals/Consults Referrals/Consults Recommended Pt instructed to follow up with Dr. River to determine if additional imaging needed. Next Visit Focus/Plan Next Note Type Treatment Note Next Visit Plan Gentle ROM, gentle strengthening. No joint mobilizations at this time. Soft tissue and edema management need to be performed. Educate on cane use again and strategies to minimize swelling. Plan of Care Dates Plan of Care Start Date 06/18/23 Plan of Care End Date 08/06/23 Electronically Signed by: Lilian Jimenez, PT 06/18/23 2179 If you are in agreement with this Plan of Care, please return a signed and dated copy. I have reviewed this Plan of Care and certify that the skilled therapy services above are required to meet the patient?s needs. Physician Signature Date Printed Name and Credentials Clinical Instructor Signature Printed Name and Credentials
--- NOTE | 2023-06-21 12:11 | PT.OTN ---
Current Diagnoses Sprain of unspecified ligament of right ankle, initial encounter (06/21/23) Physical Therapy Treatment Note PT-OP-A Visit Information Start: 06/18/23 15:26 Freq: Status: Active Protocol: Document 06/21/23 11:45 NM (Rec: 06/21/23 12:11 NM [id number]) Out-Patient Physical Therapy Visit Information Visit Information Visit Type Treatment Note Visit Start Time 09:45 Visit Stop Time 10:30 Total Visit Minutes 45 Visit Number 2 Evaluation Information Evaluation Date 06/18/23 PT-OP-B Current Condition Start: 06/18/23 15:26 Freq: Status: Active Protocol: Document 06/18/23 15:27 NM (Rec: 06/18/23 16:44 NM [id number]) Current Condition History of Current Condition Onset Date 05/05/23 Current Complaints weakness, difficulty with ambulation, pain, swelling History of Current Condition Pt was walking down his deck stairs when he tripped and fell down several feet to the ground, landing on hi R leg. He was unable to weight bear immediately upon impact and had to be carried into the house by 2 people. Pt then went to the ED the same day where he was evaluated for an ankle fracture; radiographs reveal an anterior calcaneus fracture of the R ankle, but no fractures to the foot. Pt followed up with Dr. River who dx a Grade III sprain and instructed pt to rest, ice, and perform gentle ankle mobility exercises. Pt usually wears a neoprene sleeve for comfort on his R ankle. Currently, pt is able to ambulate household distances using a straight cane. He reports that he was doing better over the past week with his swelling, pain and mobility; however, he did yard work this past Saturday, re- aggravating the injury. Prior Treatments and Tests 05/05/23: Radiograph of R ankle - anterior calcaneus fracture lines 05/05/23: Radiograph of R foot - no displaced fracture Future Testing and Treatments Planned Pt is planning to follow up with Dr. River and is seeking an MRI Treatment Goals Patient/Caregiver Goals To walk again Do yard work again Prior Functional Status Baseline Function- ADL's Independent Baseline Function- Mobility Independent Baseline Function- Gait Did not use an assistive device Current Functional Impairments (Reported) Functional Limitations- ADL's Unable to perform stairs Functional Limitations- Mobility/Gait Unable to ambulate > 100ft without a cane and without pain Functional Limitations- Recreation/ Unable to perform yardwork due Hobbies to pain and weakness PT-OP-C Subjective Start: 06/18/23 15:26 Freq: Status: Active Protocol: Document 06/21/23 11:45 NM (Rec: 06/21/23 12:11 NM [id number]) OP-PT Subjective Patient Comments Patient Comments Pt reports that he is doing well today, and he feels that he has improved in both pain ( 2/10) and his ability to walk since the evaluation. He reports compliance with his HEP, but he says that he has some R heel pain while performing his ankle PF exercise (5/10). Patient Reported Progress Improving PT-OP-D Balance Start: 06/18/23 15:26 Freq: Status: Active Protocol: Document 06/18/23 15:27 NM (Rec: 06/18/23 16:44 NM [id number]) OP-PT Balance Assessment Standing Balance Static Standing Balance Ability Fair Dynamic Standing Balance Ability Poor Device Used cane Balance Tests Single Limb Standing Single Limb- Right 0 Single Limb- Left 0 Allen Fall Scale Copyright Permission PT-OP-E Functional Tests Start: 06/18/23 15:26 Freq: Status: Active Protocol: Document 06/18/23 15:27 NM (Rec: 06/18/23 16:44 NM [id number]) Functional Tests Five Times Sit to Stand Test Score 13 sec Comments requires cane for balance PT-OP-F Manual Assessment Start: 06/18/23 15:26 Freq: Status: Active Protocol: Document 06/18/23 15:27 NM (Rec: 06/18/23 16:44 NM [id number]) Manual Assessments Soft Tissue Assessment Soft Tissue Mobility Assessment Mild painful plantarflexion ( full and 10-15 deg) + inversion. No pain with dorsiflexion + inversion. No pain with eversion + dorsiflexion or plantarflexion ranges. Joint Mobility Assessment Joint Mobility Assessment Good accessory joint motion at talocrural, subtalar joints. Limited ray mobility on R foot . PT-OP-G Mobility & Gait Start: 06/18/23 15:26 Freq: Status: Active Protocol: Document 06/18/23 15:27 NM (Rec: 06/18/23 16:44 NM [id number]) OP Gait Assessment Gait Gait Assistance Required: Independent Distance (Feet) 100 Able to Maintain Weight Bearing Status Yes During Gait Assistive Devices Assistive Device Straight Cane Orthotic/Prosthetic Devices or Brace: No Gait Deviations General Gait Pattern Antalgic,Decreased Stride Length,Wide Based Gait Factors Limiting Gait Function Factors Limiting Gait Function Decreased Strength,Limited Range of Motion,Pain Comments Gait Comments Pt presented with cane on R side. Educated during evaluation on correct placement on L side to offload RLE during stance. Overall, antalgic gait with wider stance for stability. PT-OP-H Neuro Start: 06/18/23 15:26 Freq: Status: Active Protocol: Document 06/18/23 15:27 NM (Rec: 06/18/23 16:44 NM [id number]) Sensation Evaluation Comments Summary Comments Some decreased light touch sensation to dorsum of R foot compared to L foot, but no other changes to R ankle/foot. PT-OP-J Posture/Palpation/Skin Start: 06/18/23 15:26 Freq: Status: Active Protocol: Document 06/18/23 15:27 NM (Rec: 06/18/23 16:44 NM [id number]) Posture Evaluation Position Standing Evaluation View Lateral Head/C-Spine Posture Flexed Shoulder Posture (L) Forward,(R) Forward Pelvis Posture Neutral Weight Distribution Weight Shifted Left,Decreased Wt.Bear on (R) Ankle/Foot Posture (R) Pronated,(R) Calcaneal Eversion Palpation Assessment Location R ankle Palpation Location medial, lateral, dorsum Palpation Findings Edema,Soft Tissue Tightness, Muscle Guarding,Tenderness Palpation Details Moderate swelling on R ankle compared to L ankle. R ankle appears bruised and purple compared to L ankle. No tenderness at R medial or lateral malleoli; no tenderness at R fibular head or navicular or 5th metatarsal . Skin Assessment Circumference Measurement L ankle Measurement (Centimeters) 54 Comments figure 8 R ankle Measurement (Centimeters) 59 Comments figure 8 PT-OP-K Range of Motion Start: 06/18/23 15:26 Freq: Status: Active Protocol: Document 06/18/23 15:27 NM (Rec: 06/18/23 16:44 NM [id number]) Knee Goniometric Range of Motion Knee L knee Knee ROM WFL Yes R knee Knee ROM WFL Yes Ankle and Foot Goniometric Range of Motion Ankle and Foot L ankle Ankle/Foot ROM WFL Yes Testing Position Sitting Dorsiflexion with Knee Flexed 10 Plantarflexion 50 Inversion 30 Eversion 5 R ankle Ankle/Foot ROM WFL No Testing Position Sitting Dorsiflexion with Knee Flexed 3 Plantarflexion 50 Inversion 5 Eversion 10 Comments dorsiflexion and inversion are painful Toe Range of Motion Toe L 1st Toe Toe ROM WFL No MTP Flexion Active (degrees) 45 MTP Extension Active (degrees) 20 R 1st Toe Toe ROM WFL No MTP Flexion Active (degrees) 40 MTP Extension Active (degrees) 20 Comments no pain with movement PT-OP-L Special Tests Start: 06/18/23 15:26 Freq: Status: Active Protocol: Document 06/18/23 15:27 NM (Rec: 06/18/23 16:44 NM [id number]) Special Tests Foot/Ankle Special Tests Syndesmotic Tear tests Test Results negative Comments ER stress test, squeeze test Talor Tilt Test Results negative Comments R ankle Anterior Draw Test Results negative Comments R ankle PT-OP-M Strength Start: 06/18/23 15:26 Freq: Status: Active Protocol: Document 06/18/23 15:27 NM (Rec: 06/18/23 16:44 NM [id number]) Hip Strength Hip Manual Muscle Testing L side Flexion (L2) 5 Normal Extension (S1) 4+ Good+ Abduction 4+ Good+ Adduction 4+ Good+ External Rotation 4+ Good+ Internal Rotation 4+ Good+ R side Flexion (L2) 5 Normal Extension (S1) 4+ Good+ Abduction 4+ Good+ Adduction 4+ Good+ External Rotation 4+ Good+ Internal Rotation 4+ Good+ Knee Strength Knee Manual Muscle Testing L side Flexion (S2) 4+ Good+ Extension (L3) 4+ Good+ R side Flexion (S2) 4- Good- Extension (L3) 4+ Good+ Ankle/Foot Strength Ankle and Foot Manual Muscle Testing L ankle Dorsiflexion (L4) 5 Normal Plantarflexion (S1) 2+ Poor+ Inversion 4 Good Eversion (S1) 4 Good Comments Unable to complete a single heel raise against gravity for plantarflexion MMT. Unable to perform single leg balance. When tested in sitting, 4/5 strength R ankle Dorsiflexion (L4) 4 Good Plantarflexion (S1) 2+ Poor+ Inversion 3+ Fair+ Eversion (S1) 3+ Fair+ Comments Pain with plantarflexion, inversion during MMT Unable to complete a single heel raise against gravity for plantarflexion MMT. When tested in sitting, 3+/5 strength (able to withstand minor resistance). Unable to perform single leg stance due to pain in weight bearing during plantarflexion testing. Toe Strength Toe Manual Muscle Testing Left Great Toe Flexion 4+ Good+ Extension 4+ Good+ Right Great Toe Flexion 4- Good- Extension 4- Good- PT-OP-Q Treatments Start: 06/18/23 15:26 Freq: Status: Active Protocol: Document 06/21/23 11:45 NM (Rec: 06/21/23 12:11 NM [id number]) Therapeutic Exercises Supine Exercises Ankle ABCs Supine Exercise Name AROM Side right Reps/Minutes 1 rep- capital letters Comments reports difficulty but no pain ; eversion most difficult Sitting Exercises gastroc stretch Side right Equipment Used gait belt with loop Reps/Minutes 4x30 Comments cues for straight leg, gentle stretch AROM Side right Equipment Used BAPS board level 2 Reps/Minutes 10 reps CC, 10 reps CCW Comments cues for execution, slow and controll movement of board Manual Therapy Treatment Soft Tissue Mobilization Soft tissue mobilization Body Location R ankle medial, lateral, dorsum Intensity/Depth Superficial Body Position supine with R foot elevated Comments To assist with swelling management, performed with pt also completing ankle pumps after PT massaging edema toward heart. Neuro Re-Education Treatment Movement Re-Education Movement Re-education Activities 1. Foot intrinsics: seated arch raises of R foot with tactile cues (placing PT finger under R arch) with verbal cues to keep heel and toes on ground, lift arch like preventing a needle from poking your foot. Performed with some difficulty but improved with repetition x8 reps with 5 second isometric hold at end range 2. Supine X drill to retrain DF+Inv/Ev, PF+Inv/Ev ROM and mobility. PT provided tactile cues on R foot in direction of desired movement and verbalized direction. Pt with difficulty understanding initially due to hearing aids not being turned on, but performed with no pain and increasing range with repetition. x20 ea direction PT-OP-T Assessment and Plan Start: 06/18/23 15:26 Freq: Status: Active Protocol: Document 06/21/23 11:45 NM (Rec: 11/10/23 12:11 NM [id number]) Physical Therapy Assessment Rehab Potential Rehabilitation Potential Good Evaluation Complexity Number of Personal Factors/Comorbidities 1-2 Number of Body Systems Impaired 1-2 Clinical Presentation at Evaluation Evolving Impairments Impairments Activity Tolerance,Balance, Edema,Functional Activities, Functional Mobility,Gait,Pain, ROM,Soft Tissue Mobility, Strength,Transfers Other Impairments Fall risk due to balance Goals Six Impairment Gait, Function Impairment Pt unable to ambulate >100 ft without pain Short Term Goal (STG) Pt will be able to ambulate at least 200 ft using LRAD for community ambulation. STG Duration 4 weeks [facility] Goal (LTG) Pt will be able to ambulate for at least 8 minutes without a break using LRAD in order to perform yard work and return to community activities . LTG Duration 8 weeks Five Impairment Balance, Function Impairment Pt is unable to complete any stairs Short Term Goal (STG) Pt will be able to complete at least 2 stairs with RLE leading and with limited UE support for balance. STG Duration 4 weeks [facility] Goal (LTG) Pt will be to complete at least 5 stairs with RLE leading and with 1 or no UE support for balance using LRAD in order to ascend/descend deck at home. LTG Duration 8 weeks Four Impairment swelling Impairment Pt is limited by moderate swelling in R ankle: figure 8 is 59 cm compared to L ankle 54 cm Short Term Goal (STG) Pt will demonstrate a decrease by at least 1 cm in R ankle swelling to allow for greater mobility. STG Duration 4 weeks [employer] Goal (LTG) Pt's R ankle circumference will be at least within 1 cm of the L ankle in order to demonstrate decreased swelling , to allow for greater weight bearing during mobility, and assist with managing pain. LTG Duration 8 weeks Three Impairment Strength Impairment Pt with 2+/5 R ankle plantarflexion strength against gravity Short Term Goal (STG) Pt will be able to perform at least 5 bilateral heel raises to demonstrate improved plantarflexion strength STG Duration 4 weeks [employer] Goal (LTG) Pt will be able to perform at least 1 unilateral heel raise on ea leg in order to demonstrate improved plantarflexion strength for foot propulsion during gait and during stairs. LTG Duration 8 weeks Two Impairment ROM Impairment Pt with limited R ankle dorsiflexion ROM (3 deg) Short Term Goal (STG) Pt will improve R ankle dorsiflexion ROM by at least 2 -3 degrees. STG Duration 4 weeks [facility] Goal (LTG) Pt will improve R ankle dorsiflexion ROM by at least 5 degrees for improved ankle stability, balance, and to promote toe clearance while advancing RLE during gait. LTG Duration 8 weeks One Impairment ROM limitations Impairment Pt with limited R ankle inversion ROM (5 deg) Short Term Goal (STG) Pt will improve R ankle inversion ROM by at least 5 degrees. STG Duration 4 weeks [facility] Goal (LTG) Pt will improve ankle inversion ROM by at least 15 degrees for improved ankle stability and balance during gait. LTG Duration 8 weeks Assessment Summary Assessment Pt tolerated treatment well. Initiated gentle AROM to assist with swelling reduction , mobility, and pain. Pt demos improved range with repetition of exercises and does not have any increases in pain. Performed x exercise and arch raises to encourage greater activation of ankle extrinsic and intrinsic muscles; pt required consistent verbal and tactile cues for correct execution, but demonstrated improved R ankle mobility and intrinsic muscle recruitment needed for stability. Pt does report that he no longer has R heel pain similar to the evaluation, but now the he has occasional pain during ankle plantarflexion under the arch of his foot. If pain continues to progress, will follow up with Dr. River to determine if further imaging or assessment needed. Issued additional exercises to HEP: arch raises, seated gastroc stretch, and ankle ABCs. Pt would benefit from continued skilled PT to address impairments in ankle ROM, ankle strength, gait, balance, swelling management, and to improve activity tolerance. Physical Therapy Plan Frequency and Duration Frequency of Treatment 2x/Week Duration of treatment (weeks) 8 Plan of Care Start Date 06/18/23 Plan of Care End Date 08/06/23 Therapeutic Interventions Therapeutic Interventions Balance Training,Coordination Training,Gait Training,Home Exercise Program,Joint Mobilizations,Manual Therapy, Neuromuscular Re-education, Patient/Caregiver Education, Soft Tissue Mobilization, Therapeutic Activities, Therapeutic Exercises Modalities Cold Pack/Ice Massage,Electric Stimulation,Hot Packs Other Referrals/Consults Referrals/Consults Recommended Pt instructed to follow up with Dr. River to determine if additional imaging needed. Next Visit Focus/Plan Next Note Type Treatment Note Next Visit Plan Continue with ROM (progress as needed). No joint mobilizations. Continue soft tissue for edema management. Progress strengthening of ankle intrinsics and extrinsics as tolerated. Gait training if time.
--- NOTE | 2023-06-25 14:50 | PT.OTN ---
Current Diagnoses Sprain of unspecified ligament of right ankle, initial encounter (06/25/23) Physical Therapy Treatment Note PT-OP-A Visit Information Start: 06/18/23 15:26 Freq: Status: Active Protocol: Document 06/25/23 12:02 NM (Rec: 06/25/23 12:25 NM [id number]) Out-Patient Physical Therapy Visit Information Visit Information Visit Type Treatment Note Visit Start Time 09:45 Visit Stop Time 10:30 Total Visit Minutes 45 Visit Number 3 Evaluation Information Evaluation Date 06/18/23 PT-OP-B Current Condition Start: 06/18/23 15:26 Freq: Status: Active Protocol: Document 06/18/23 15:27 NM (Rec: 06/18/23 16:44 NM [id number]) Current Condition History of Current Condition Onset Date 05/05/23 Current Complaints weakness, difficulty with ambulation, pain, swelling History of Current Condition Pt was walking down his deck stairs when he tripped and fell down several feet to the ground, landing on hi R leg. He was unable to weight bear immediately upon impact and had to be carried into the house by 2 people. Pt then went to the ED the same day where he was evaluated for an ankle fracture; radiographs reveal an anterior calcaneus fracture of the R ankle, but no fractures to the foot. Pt followed up with Dr. River who dx a Grade III sprain and instructed pt to rest, ice, and perform gentle ankle mobility exercises. Pt usually wears a neoprene sleeve for comfort on his R ankle. Currently, pt is able to ambulate household distances using a straight cane. He reports that he was doing better over the past week with his swelling, pain and mobility; however, he did yard work this past Saturday, re- aggravating the injury. Prior Treatments and Tests 05/05/23: Radiograph of R ankle - anterior calcaneus fracture lines 05/05/23: Radiograph of R foot - no displaced fracture Future Testing and Treatments Planned Pt is planning to follow up with Dr. River and is seeking an MRI Treatment Goals Patient/Caregiver Goals To walk again Do yard work again Prior Functional Status Baseline Function- ADL's Independent Baseline Function- Mobility Independent Baseline Function- Gait Did not use an assistive device Current Functional Impairments (Reported) Functional Limitations- ADL's Unable to perform stairs Functional Limitations- Mobility/Gait Unable to ambulate > 100ft without a cane and without pain Functional Limitations- Recreation/ Unable to perform yardwork due Hobbies to pain and weakness PT-OP-C Subjective Start: 06/18/23 15:26 Freq: Status: Active Protocol: Document 06/25/23 12:02 NM (Rec: 06/25/23 12:25 NM [id number]) OP-PT Subjective Patient Comments Patient Comments Pt reports that he is doing well. He states that his R ankle is feeling much better because his pain is minimal (0 /10) and the swelling is improved. Pt recently bought a compression sock, which he has been wearing during activity. He reports that he was able to walk his dog yesterday about 1 mi while using his cane and wearing his brace. Patient Reported Progress Improving PT-OP-D Balance Start: 06/18/23 15:26 Freq: Status: Active Protocol: Document 06/18/23 15:27 NM (Rec: 06/18/23 16:44 NM [id number]) OP-PT Balance Assessment Standing Balance Static Standing Balance Ability Fair Dynamic Standing Balance Ability Poor Device Used cane Balance Tests Single Limb Standing Single Limb- Right 0 Single Limb- Left 0 Allen Fall Scale Copyright Permission PT-OP-E Functional Tests Start: 06/18/23 15:26 Freq: Status: Active Protocol: Document 06/18/23 15:27 NM (Rec: 06/18/23 16:44 NM [id number]) Functional Tests Five Times Sit to Stand Test Score 13 sec Comments requires cane for balance PT-OP-F Manual Assessment Start: 06/18/23 15:26 Freq: Status: Active Protocol: Document 06/18/23 15:27 NM (Rec: 06/18/23 16:44 NM [id number]) Manual Assessments Soft Tissue Assessment Soft Tissue Mobility Assessment Mild painful plantarflexion ( full and 10-15 deg) + inversion. No pain with dorsiflexion + inversion. No pain with eversion + dorsiflexion or plantarflexion ranges. Joint Mobility Assessment Joint Mobility Assessment Good accessory joint motion at talocrural, subtalar joints. Limited ray mobility on R foot . PT-OP-G Mobility & Gait Start: 06/18/23 15:26 Freq: Status: Active Protocol: Document 06/18/23 15:27 NM (Rec: 06/18/23 16:44 NM [id number]) OP Gait Assessment Gait Gait Assistance Required: Independent Distance (Feet) 100 Able to Maintain Weight Bearing Status Yes During Gait Assistive Devices Assistive Device Straight Cane Orthotic/Prosthetic Devices or Brace: No Gait Deviations General Gait Pattern Antalgic,Decreased Stride Length,Wide Based Gait Factors Limiting Gait Function Factors Limiting Gait Function Decreased Strength,Limited Range of Motion,Pain Comments Gait Comments Pt presented with cane on R side. Educated during evaluation on correct placement on L side to offload RLE during stance. Overall, antalgic gait with wider stance for stability. PT-OP-H Neuro Start: 06/18/23 15:26 Freq: Status: Active Protocol: Document 06/18/23 15:27 NM (Rec: 06/18/23 16:44 NM [id number]) Sensation Evaluation Comments Summary Comments Some decreased light touch sensation to dorsum of R foot compared to L foot, but no other changes to R ankle/foot. PT-OP-J Posture/Palpation/Skin Start: 06/18/23 15:26 Freq: Status: Active Protocol: Document 06/18/23 15:27 NM (Rec: 06/18/23 16:44 NM [id number]) Posture Evaluation Position Standing Evaluation View Lateral Head/C-Spine Posture Flexed Shoulder Posture (L) Forward,(R) Forward Pelvis Posture Neutral Weight Distribution Weight Shifted Left,Decreased Wt.Bear on (R) Ankle/Foot Posture (R) Pronated,(R) Calcaneal Eversion Palpation Assessment Location R ankle Palpation Location medial, lateral, dorsum Palpation Findings Edema,Soft Tissue Tightness, Muscle Guarding,Tenderness Palpation Details Moderate swelling on R ankle compared to L ankle. R ankle appears bruised and purple compared to L ankle. No tenderness at R medial or lateral malleoli; no tenderness at R fibular head or navicular or 5th metatarsal . Skin Assessment Circumference Measurement L ankle Measurement (Centimeters) 54 Comments figure 8 R ankle Measurement (Centimeters) 59 Comments figure 8 PT-OP-K Range of Motion Start: 06/18/23 15:26 Freq: Status: Active Protocol: Document 06/18/23 15:27 NM (Rec: 06/18/23 16:44 NM [id number]) Knee Goniometric Range of Motion Knee L knee Knee ROM WFL Yes R knee Knee ROM WFL Yes Ankle and Foot Goniometric Range of Motion Ankle and Foot L ankle Ankle/Foot ROM WFL Yes Testing Position Sitting Dorsiflexion with Knee Flexed 10 Plantarflexion 50 Inversion 30 Eversion 5 R ankle Ankle/Foot ROM WFL No Testing Position Sitting Dorsiflexion with Knee Flexed 3 Plantarflexion 50 Inversion 5 Eversion 10 Comments dorsiflexion and inversion are painful Toe Range of Motion Toe L 1st Toe Toe ROM WFL No MTP Flexion Active (degrees) 45 MTP Extension Active (degrees) 20 R 1st Toe Toe ROM WFL No MTP Flexion Active (degrees) 40 MTP Extension Active (degrees) 20 Comments no pain with movement PT-OP-L Special Tests Start: 06/18/23 15:26 Freq: Status: Active Protocol: Document 06/18/23 15:27 NM (Rec: 06/18/23 16:44 NM [id number]) Special Tests Foot/Ankle Special Tests Syndesmotic Tear tests Test Results negative Comments ER stress test, squeeze test Talor Tilt Test Results negative Comments R ankle Anterior Draw Test Results negative Comments R ankle PT-OP-M Strength Start: 06/18/23 15:26 Freq: Status: Active Protocol: Document 06/18/23 15:27 NM (Rec: 06/18/23 16:44 NM [id number]) Hip Strength Hip Manual Muscle Testing L side Flexion (L2) 5 Normal Extension (S1) 4+ Good+ Abduction 4+ Good+ Adduction 4+ Good+ External Rotation 4+ Good+ Internal Rotation 4+ Good+ R side Flexion (L2) 5 Normal Extension (S1) 4+ Good+ Abduction 4+ Good+ Adduction 4+ Good+ External Rotation 4+ Good+ Internal Rotation 4+ Good+ Knee Strength Knee Manual Muscle Testing L side Flexion (S2) 4+ Good+ Extension (L3) 4+ Good+ R side Flexion (S2) 4- Good- Extension (L3) 4+ Good+ Ankle/Foot Strength Ankle and Foot Manual Muscle Testing L ankle Dorsiflexion (L4) 5 Normal Plantarflexion (S1) 2+ Poor+ Inversion 4 Good Eversion (S1) 4 Good Comments Unable to complete a single heel raise against gravity for plantarflexion MMT. Unable to perform single leg balance. When tested in sitting, 4/5 strength R ankle Dorsiflexion (L4) 4 Good Plantarflexion (S1) 2+ Poor+ Inversion 3+ Fair+ Eversion (S1) 3+ Fair+ Comments Pain with plantarflexion, inversion during MMT Unable to complete a single heel raise against gravity for plantarflexion MMT. When tested in sitting, 3+/5 strength (able to withstand minor resistance). Unable to perform single leg stance due to pain in weight bearing during plantarflexion testing. Toe Strength Toe Manual Muscle Testing Left Great Toe Flexion 4+ Good+ Extension 4+ Good+ Right Great Toe Flexion 4- Good- Extension 4- Good- PT-OP-Q Treatments Start: 06/18/23 15:26 Freq: Status: Active Protocol: Document 06/25/23 12:02 NM (Rec: 06/25/23 12:25 NM [id number]) Therapeutic Exercises Supine Exercises Ankle ABCs Supine Exercise Name AROM Side right Reps/Minutes 1 rep- capital letters Sitting Exercises AROM Sitting Exercise Name 1. BAPS board level 2, 2. Rocker board A/P, M/L Side right Equipment Used level 2 Reps/Minutes 1. 10 reps CC, 10 reps CCW; 2. 10 reps ea Comments cues for execution, control movement of board Standing Exercises PF Side bilateral Equipment Used 1 UE support Reps/Minutes 2x15 Comments weight shift to L side, difficulty with weight shift R onto ankle d/t pain Gastroc/Soleus stretch Standing Exercise Name 1. gastroc, 2. soleus Side bilateral Equipment Used Toni wedge Reps/Minutes 2x30 ea Comments cues for gentle stretch Neuro Re-Education Treatment Movement Re-Education Movement Re-education Activities 1. Supine X drill to retrain DF+Inv/Ev, PF+Inv/Ev ROM and mobility. PT provided tactile cues on R foot in direction of desired movement and verbalized direction. Performed with no pain and increasing range with repetition. x20 ea direction, switching directions today 2. X drill with minimal resistance (2 fingers) for strengthening and to encourage ROM. Verbal cues and bolster placed next to RLE to prevent compensations with hip during eversion/inversion. x10 reps ea direction, switching directions PT-OP-T Assessment and Plan Start: 06/18/23 15:26 Freq: Status: Active Protocol: Document 06/25/23 12:02 NM (Rec: 06/25/23 12:25 NM [id number]) Physical Therapy Assessment Rehab Potential Rehabilitation Potential Good Impairments Impairments Activity Tolerance,Balance, Edema,Functional Activities, Functional Mobility,Gait,Pain, ROM,Soft Tissue Mobility, Strength,Transfers Other Impairments Fall risk due to balance Goals Six Impairment Gait, Function Impairment Pt unable to ambulate >100 ft without pain Short Term Goal (STG) Pt will be able to ambulate at least 200 ft using LRAD for community ambulation. STG Duration 4 weeks Penitentiary Goal (LTG) Pt will be able to ambulate for at least 8 minutes without a break using LRAD in order to perform yard work and return to community activities . LTG Duration 8 weeks Five Impairment Balance, Function Impairment Pt is unable to complete any stairs Short Term Goal (STG) Pt will be able to complete at least 2 stairs with RLE leading and with limited UE support for balance. STG Duration 4 weeks Penitentiary Goal (LTG) Pt will be to complete at least 5 stairs with RLE leading and with 1 or no UE support for balance using LRAD in order to ascend/descend deck at home. LTG Duration 8 weeks Four Impairment swelling Impairment Pt is limited by moderate swelling in R ankle: figure 8 is 59 cm compared to L ankle 54 cm Short Term Goal (STG) Pt will demonstrate a decrease by at least 1 cm in R ankle swelling to allow for greater mobility. STG Duration 4 weeks Airline Captain Goal (LTG) Pt's R ankle circumference will be at least within 1 cm of the L ankle in order to demonstrate decreased swelling , to allow for greater weight bearing during mobility, and assist with managing pain. LTG Duration 8 weeks Three Impairment Strength Impairment Pt with 2+/5 R ankle plantarflexion strength against gravity Short Term Goal (STG) Pt will be able to perform at least 5 bilateral heel raises to demonstrate improved plantarflexion strength STG Duration 4 weeks Airline Captain Goal (LTG) Pt will be able to perform at least 1 unilateral heel raise on ea leg in order to demonstrate improved plantarflexion strength for foot propulsion during gait and during stairs. LTG Duration 8 weeks Two Impairment ROM Impairment Pt with limited R ankle dorsiflexion ROM (3 deg) Short Term Goal (STG) Pt will improve R ankle dorsiflexion ROM by at least 2 -3 degrees. STG Duration 4 weeks Penitentiary Goal (LTG) Pt will improve R ankle dorsiflexion ROM by at least 5 degrees for improved ankle stability, balance, and to promote toe clearance while advancing RLE during gait. LTG Duration 8 weeks One Impairment ROM limitations Impairment Pt with limited R ankle inversion ROM (5 deg) Short Term Goal (STG) Pt will improve R ankle inversion ROM by at least 5 degrees. STG Duration 4 weeks Penitentiary Goal (LTG) Pt will improve ankle inversion ROM by at least 15 degrees for improved ankle stability and balance during gait. LTG Duration 8 weeks Assessment Summary Assessment Pt tolerated treatment well and demonstrates significant improvement since last visit. Pt has decreased swelling in R ankle which is comparable to the L ankle, will take circumferential measurements in next session if continues to decrease; he began wearing compression socks which is likely contributing. Pt is returning to walking outside of PT using an ankle sleeve and his cane; however, he would benefit from gait training in order to promote normal gait and improve weight shift onto RLE. Continued with X neuromuscular re- education drill today to assist in ROM, extrinsic ankle muscle control; he was able to withstand min-mod manual resistance throughout the motion. Demonstrates improved ankle ROM in all directions overall. Pt is having difficulty with toe flexion during marble pick ups/towel scrunches. He was unable to perform these activities even with assistance, indicating that foot intrinsics will need to be retrained differently. Gastroc/soleus stretch progressed to standing today along with standing bilateral plantarflexion. Pt tends to weight bear mostly on his LLE and has difficulty shifting weight onto his RLE due to mild pain with weight bearing and fear of weight bearing. Pt would benefit from skilled PT to address impairments in equal weight bearing, gait, balance, ankle strength and ROM, ankle proprioception, and activity tolerance. Physical Therapy Plan Frequency and Duration Frequency of Treatment 2x/Week Duration of treatment (weeks) 8 Plan of Care Start Date 06/18/23 Plan of Care End Date 08/06/23 Therapeutic Interventions Therapeutic Interventions Balance Training,Coordination Training,Gait Training,Home Exercise Program,Joint Mobilizations,Manual Therapy, Neuromuscular Re-education, Patient/Caregiver Education, Soft Tissue Mobilization, Therapeutic Activities, Therapeutic Exercises Modalities Cold Pack/Ice Massage,Electric Stimulation,Hot Packs Next Visit Focus/Plan Next Note Type Treatment Note Next Visit Plan Gait training, weight shifting onto RLE (maybe use scale and mirror). Continue with ankle strengthening and ROM. Take circumferential measurements if swelling continues to decrease. Update HEP
--- NOTE | 2023-06-28 11:31 | PT.OTN ---
Current Diagnoses Sprain of unspecified ligament of right ankle, initial encounter (06/28/23) Physical Therapy Treatment Note PT-OP-A Visit Information Start: 06/18/23 15:26 Freq: Status: Active Protocol: Document 06/28/23 10:04 NM (Rec: 06/28/23 11:30 NM [id number]) Out-Patient Physical Therapy Visit Information Visit Information Visit Type Treatment Note Visit Start Time 10:00 Visit Stop Time 10:50 Total Visit Minutes 50 Visit Number 4 PT-OP-B Current Condition Start: 06/18/23 15:26 Freq: Status: Active Protocol: Document 06/18/23 15:27 NM (Rec: 06/18/23 16:44 NM [id number]) Current Condition History of Current Condition Onset Date 05/05/23 Current Complaints weakness, difficulty with ambulation, pain, swelling History of Current Condition Pt was walking down his deck stairs when he tripped and fell down several feet to the ground, landing on hi R leg. He was unable to weight bear immediately upon impact and had to be carried into the house by 2 people. Pt then went to the ED the same day where he was evaluated for an ankle fracture; radiographs reveal an anterior calcaneus fracture of the R ankle, but no fractures to the foot. Pt followed up with Dr. River who dx a Grade III sprain and instructed pt to rest, ice, and perform gentle ankle mobility exercises. Pt usually wears a neoprene sleeve for comfort on his R ankle. Currently, pt is able to ambulate household distances using a straight cane. He reports that he was doing better over the past week with his swelling, pain and mobility; however, he did yard work this past Saturday, re- aggravating the injury. Prior Treatments and Tests 05/05/23: Radiograph of R ankle - anterior calcaneus fracture lines 05/05/23: Radiograph of R foot - no displaced fracture Future Testing and Treatments Planned Pt is planning to follow up with Dr. River and is seeking an MRI Treatment Goals Patient/Caregiver Goals To walk again Do yard work again Prior Functional Status Baseline Function- ADL's Independent Baseline Function- Mobility Independent Baseline Function- Gait Did not use an assistive device Current Functional Impairments (Reported) Functional Limitations- ADL's Unable to perform stairs Functional Limitations- Mobility/Gait Unable to ambulate > 100ft without a cane and without pain Functional Limitations- Recreation/ Unable to perform yardwork due Hobbies to pain and weakness PT-OP-C Subjective Start: 06/18/23 15:26 Freq: Status: Active Protocol: Document 06/28/23 10:04 NM (Rec: 06/28/23 11:30 NM [id number]) OP-PT Subjective Patient Comments Patient Comments Pt presents with 2/10 R ankle pain today, stating he overdid it. He used a leaf blower in his yard yesterday ( which is sloped), and his ankle is aggravated today compared to previous sessions. Patient Reported Progress Improving PT-OP-D Balance Start: 06/18/23 15:26 Freq: Status: Active Protocol: Document 06/18/23 15:27 NM (Rec: 06/18/23 16:44 NM [id number]) OP-PT Balance Assessment Standing Balance Static Standing Balance Ability Fair Dynamic Standing Balance Ability Poor Device Used cane Balance Tests Single Limb Standing Single Limb- Right 0 Single Limb- Left 0 Allen Fall Scale Copyright Permission PT-OP-E Functional Tests Start: 06/18/23 15:26 Freq: Status: Active Protocol: Document 06/18/23 15:27 NM (Rec: 06/18/23 16:44 NM [id number]) Functional Tests Five Times Sit to Stand Test Score 13 sec Comments requires cane for balance PT-OP-F Manual Assessment Start: 06/18/23 15:26 Freq: Status: Active Protocol: Document 06/18/23 15:27 NM (Rec: 06/18/23 16:44 NM [id number]) Manual Assessments Soft Tissue Assessment Soft Tissue Mobility Assessment Mild painful plantarflexion ( full and 10-15 deg) + inversion. No pain with dorsiflexion + inversion. No pain with eversion + dorsiflexion or plantarflexion ranges. Joint Mobility Assessment Joint Mobility Assessment Good accessory joint motion at talocrural, subtalar joints. Limited ray mobility on R foot . PT-OP-G Mobility & Gait Start: 06/18/23 15:26 Freq: Status: Active Protocol: Document 06/18/23 15:27 NM (Rec: 06/18/23 16:44 NM [id number]) OP Gait Assessment Gait Gait Assistance Required: Independent Distance (Feet) 100 Able to Maintain Weight Bearing Status Yes During Gait Assistive Devices Assistive Device Straight Cane Orthotic/Prosthetic Devices or Brace: No Gait Deviations General Gait Pattern Antalgic,Decreased Stride Length,Wide Based Gait Factors Limiting Gait Function Factors Limiting Gait Function Decreased Strength,Limited Range of Motion,Pain Comments Gait Comments Pt presented with cane on R side. Educated during evaluation on correct placement on L side to offload RLE during stance. Overall, antalgic gait with wider stance for stability. PT-OP-H Neuro Start: 06/18/23 15:26 Freq: Status: Active Protocol: Document 06/18/23 15:27 NM (Rec: 06/18/23 16:44 NM [id number]) Sensation Evaluation Comments Summary Comments Some decreased light touch sensation to dorsum of R foot compared to L foot, but no other changes to R ankle/foot. PT-OP-J Posture/Palpation/Skin Start: 06/18/23 15:26 Freq: Status: Active Protocol: Document 06/18/23 15:27 NM (Rec: 06/18/23 16:44 NM [id number]) Posture Evaluation Position Standing Evaluation View Lateral Head/C-Spine Posture Flexed Shoulder Posture (L) Forward,(R) Forward Pelvis Posture Neutral Weight Distribution Weight Shifted Left,Decreased Wt.Bear on (R) Ankle/Foot Posture (R) Pronated,(R) Calcaneal Eversion Palpation Assessment Location R ankle Palpation Location medial, lateral, dorsum Palpation Findings Edema,Soft Tissue Tightness, Muscle Guarding,Tenderness Palpation Details Moderate swelling on R ankle compared to L ankle. R ankle appears bruised and purple compared to L ankle. No tenderness at R medial or lateral malleoli; no tenderness at R fibular head or navicular or 5th metatarsal . Skin Assessment Circumference Measurement L ankle Measurement (Centimeters) 54 Comments figure 8 R ankle Measurement (Centimeters) 59 Comments figure 8 PT-OP-K Range of Motion Start: 06/18/23 15:26 Freq: Status: Active Protocol: Document 06/18/23 15:27 NM (Rec: 06/18/23 16:44 NM [id number]) Knee Goniometric Range of Motion Knee L knee Knee ROM WFL Yes R knee Knee ROM WFL Yes Ankle and Foot Goniometric Range of Motion Ankle and Foot L ankle Ankle/Foot ROM WFL Yes Testing Position Sitting Dorsiflexion with Knee Flexed 10 Plantarflexion 50 Inversion 30 Eversion 5 R ankle Ankle/Foot ROM WFL No Testing Position Sitting Dorsiflexion with Knee Flexed 3 Plantarflexion 50 Inversion 5 Eversion 10 Comments dorsiflexion and inversion are painful Toe Range of Motion Toe L 1st Toe Toe ROM WFL No MTP Flexion Active (degrees) 45 MTP Extension Active (degrees) 20 R 1st Toe Toe ROM WFL No MTP Flexion Active (degrees) 40 MTP Extension Active (degrees) 20 Comments no pain with movement PT-OP-L Special Tests Start: 06/18/23 15:26 Freq: Status: Active Protocol: Document 06/18/23 15:27 NM (Rec: 06/18/23 16:44 NM [id number]) Special Tests Foot/Ankle Special Tests Syndesmotic Tear tests Test Results negative Comments ER stress test, squeeze test Talor Tilt Test Results negative Comments R ankle Anterior Draw Test Results negative Comments R ankle PT-OP-M Strength Start: 06/18/23 15:26 Freq: Status: Active Protocol: Document 06/18/23 15:27 NM (Rec: 06/18/23 16:44 NM [id number]) Hip Strength Hip Manual Muscle Testing L side Flexion (L2) 5 Normal Extension (S1) 4+ Good+ Abduction 4+ Good+ Adduction 4+ Good+ External Rotation 4+ Good+ Internal Rotation 4+ Good+ R side Flexion (L2) 5 Normal Extension (S1) 4+ Good+ Abduction 4+ Good+ Adduction 4+ Good+ External Rotation 4+ Good+ Internal Rotation 4+ Good+ Knee Strength Knee Manual Muscle Testing L side Flexion (S2) 4+ Good+ Extension (L3) 4+ Good+ R side Flexion (S2) 4- Good- Extension (L3) 4+ Good+ Ankle/Foot Strength Ankle and Foot Manual Muscle Testing L ankle Dorsiflexion (L4) 5 Normal Plantarflexion (S1) 2+ Poor+ Inversion 4 Good Eversion (S1) 4 Good Comments Unable to complete a single heel raise against gravity for plantarflexion MMT. Unable to perform single leg balance. When tested in sitting, 4/5 strength R ankle Dorsiflexion (L4) 4 Good Plantarflexion (S1) 2+ Poor+ Inversion 3+ Fair+ Eversion (S1) 3+ Fair+ Comments Pain with plantarflexion, inversion during MMT Unable to complete a single heel raise against gravity for plantarflexion MMT. When tested in sitting, 3+/5 strength (able to withstand minor resistance). Unable to perform single leg stance due to pain in weight bearing during plantarflexion testing. Toe Strength Toe Manual Muscle Testing Left Great Toe Flexion 4+ Good+ Extension 4+ Good+ Right Great Toe Flexion 4- Good- Extension 4- Good- PT-OP-Q Treatments Start: 06/18/23 15:26 Freq: Status: Active Protocol: Document 06/28/23 10:04 NM (Rec: 06/28/23 11:30 NM [id number]) Cardio Equipment Recumbent Stepper (Sci-Fit) Duration (Minutes) 6 Resistance 1 Other To increase RLE weight bearing , load tolerance Therapeutic Exercises Sitting Exercises Foot Intrinsics Sitting Exercise Name 1. Towel Scrunches for toe flex, 2. short foot raises Side right Reps/Minutes 10x5 Comments updated HEP; cues for decrease speed for control gastroc stretch Sitting Exercise Name d/c to standing now AROM Sitting Exercise Name Rocker board A/P, M/L Side right Reps/Minutes 10 rep ea direction Comments cues for execution/control of board and to limit hip compensations ankle inversion Sitting Exercise Name Short sitting Side right Resistance green tb (lvl 3) Reps/Minutes x20 Comments updated HEP; cues to min hip ADD compensation ankle eversion Sitting Exercise Name short sitting Side right Resistance green tb (lvl 3) Reps/Minutes x20 Comments updated HEP; cues to min hip ABD/ER compensation ankle plantarflexion Sitting Exercise Name d/c sitting to standing now ankle dorsiflexion Sitting Exercise Name short sitting Side right Resistance green tb (lvl 3) Reps/Minutes x20 Comments updated HEP Standing Exercises PF Standing Exercise Name HEP Reps/Minutes 10 Comments cues for weight shift onto RLE for equal WB Gastroc/Soleus stretch Standing Exercise Name 1. gastroc, 2. soleus Side bilateral Equipment Used staggered stance position against wall Reps/Minutes 2x30 ea Comments updated HEP Gait Training Gait Activity Normal Gait Device Used cane > no AD Level of Assistance CGA (for initial stability) > SBA Surface stable/level tile and carpet Distance/Duration with cane x50 ft, without cane x366 ft Treatment Focus promote equal WB, normal gait with heel>toe,limit cane reliance Comments Pt able to tolerate WB on RLE without cane with 0/10 pain. Demos decreased step length LLE and decreased stance time RLE. Able to successfully perform heel>toe x50 ft with frequent cueing for execution; however, also demos shuffling gait with decreased toe clearance (does not flex knee/ hip enough to advance). Neuro Re-Education Treatment Movement Re-Education Movement Re-education Activities Weight shifting emphasis today during tmt. Pt is //bars with mirror for visual feedback. Pt with no UE, shifting with M /L then A/P then diagonally in staggered stance. PT manually facilitating weight shift onto RLE initially, cueing for at least 50% of weight bearing in stance; also educating pt on importance of slowly progressing weight bearing to ambulate without AD like PLOF. Pt able to tolerate up to 75% of weight bearing on RLE while shifting weight. PT-OP-T Assessment and Plan Start: 06/18/23 15:26 Freq: Status: Active Protocol: Document 06/28/23 10:04 NM (Rec: 06/28/23 11:30 NM [id number]) Physical Therapy Assessment Rehab Potential Rehabilitation Potential Good Evaluation Complexity Number of Personal Factors/Comorbidities 1-2 Number of Body Systems Impaired 1-2 Clinical Presentation at Evaluation Evolving Impairments Impairments Activity Tolerance,Balance, Edema,Functional Activities, Functional Mobility,Gait,Pain, ROM,Soft Tissue Mobility, Strength,Transfers Other Impairments Fall risk due to balance Goals Six Impairment Gait, Function Impairment Pt unable to ambulate >100 ft without pain Short Term Goal (STG) Pt will be able to ambulate at least 200 ft using LRAD for community ambulation. MET (06/28): ambulate x366 ft without AD STG Duration 4 weeks Acid Plant Helper Goal (LTG) Pt will be able to ambulate for at least 8 minutes without a break using LRAD in order to perform yard work and return to community activities . LTG Duration 8 weeks Five Impairment Balance, Function Impairment Pt is unable to complete any stairs Short Term Goal (STG) Pt will be able to complete at least 2 stairs with RLE leading and with limited UE support for balance. STG Duration 4 weeks Acid Plant Helper Goal (LTG) Pt will be to complete at least 5 stairs with RLE leading and with 1 or no UE support for balance using LRAD in order to ascend/descend deck at home. LTG Duration 8 weeks Four Impairment swelling Impairment Pt is limited by moderate swelling in R ankle: figure 8 is 59 cm compared to L ankle 54 cm Short Term Goal (STG) Pt will demonstrate a decrease by at least 1 cm in R ankle swelling to allow for greater mobility. MET (06/28): circumference 56. 5 cm STG Duration 4 weeks Retirement Goal (LTG) Pt's R ankle circumference will be at least within 1 cm of the L ankle in order to demonstrate decreased swelling , to allow for greater weight bearing during mobility, and assist with managing pain. LTG Duration 8 weeks Three Impairment Strength Impairment Pt with 2+/5 R ankle plantarflexion strength against gravity Short Term Goal (STG) Pt will be able to perform at least 5 bilateral heel raises to demonstrate improved plantarflexion strength STG Duration 4 weeks Retirement Goal (LTG) Pt will be able to perform at least 1 unilateral heel raise on ea leg in order to demonstrate improved plantarflexion strength for foot propulsion during gait and during stairs. LTG Duration 8 weeks Two Impairment ROM Impairment Pt with limited R ankle dorsiflexion ROM (3 deg) Short Term Goal (STG) Pt will improve R ankle dorsiflexion ROM by at least 2 -3 degrees. STG Duration 4 weeks Retirement Goal (LTG) Pt will improve R ankle dorsiflexion ROM by at least 5 degrees for improved ankle stability, balance, and to promote toe clearance while advancing RLE during gait. LTG Duration 8 weeks One Impairment ROM limitations Impairment Pt with limited R ankle inversion ROM (5 deg) Short Term Goal (STG) Pt will improve R ankle inversion ROM by at least 5 degrees. STG Duration 4 weeks Retirement Goal (LTG) Pt will improve ankle inversion ROM by at least 15 degrees for improved ankle stability and balance during gait. LTG Duration 8 weeks Progress Towards Goals Progress Towards Goals Progressing Toward Goals Assessment Summary Assessment Pt tolerated treatment well and continues to demo significant improvement even though presenting with more pain today than normal. Pt's R ankle circumference re- measured today, now 56.5 cm showing an improvement in swelling management; pt continues to wear compression sock during activities. Pt still with limited ankle mobility in ea direction, so progressed gastroc/soleus stretching in tmt and as part of HEP. Tmt focused on weight shifting onto RLE and encouragine equal weight bearing in stance/increase weight bearing on RLE during gait. Pt ambulated x366ft CGA> SBA without AD as part of gait training to encourage greater WB onto RLE, reteach normal gait. Pt tolerated well but will continue to emphasize in future sessions. HEP updated to include G/S stretching, heel/toe raises, towel scrunches for toe flexion, toe lift/spread for intrinsic strength; also provided with a green lvl [address]. Pt may not be able to have appointments over the next two weeks, so instructed to continue with HEP in meantime and to continue gentle walking program at home on level surfaces. Pt would benefit from skilled PT to address impairments in ankle ROM, ankle strength, balance, gait, and activity tolerance to return to PLOF and decrease fall risk. Physical Therapy Plan Frequency and Duration Frequency of Treatment 2x/Week Duration of treatment (weeks) 8 Plan of Care Start Date 06/18/23 Plan of Care End Date 08/06/23 Therapeutic Interventions Therapeutic Interventions Balance Training,Coordination Training,Gait Training,Home Exercise Program,Joint Mobilizations,Manual Therapy, Neuromuscular Re-education, Patient/Caregiver Education, Soft Tissue Mobilization, Therapeutic Activities, Therapeutic Exercises Modalities Cold Pack/Ice Massage,Electric Stimulation,Hot Packs Next Visit Focus/Plan Next Note Type Treatment Note Next Visit Plan Gait training (mc with WB on RLE, normal gait pattern, toe clearance and limb advancement ). Continue and progress ankle strengthening in weight bearing positions (PF on step, different foot positions if tolerated). Progress ankle mobility, possible DF self mob .
--- NOTE | 2023-07-02 15:45 | PT.OTN ---
Current Diagnoses Sprain of unspecified ligament of right ankle, initial encounter (07/02/23) Physical Therapy Treatment Note PT-OP-A Visit Information Start: 06/18/23 15:26 Freq: Status: Active Protocol: Document 07/02/23 14:35 NM (Rec: 07/02/23 15:44 NM [id number]) Out-Patient Physical Therapy Visit Information Visit Information Visit Type Treatment Note Visit Start Time 14:30 Visit Stop Time 15:15 Total Visit Minutes 45 Visit Number 5 Evaluation Information Evaluation Date 06/18/23 PT-OP-B Current Condition Start: 06/18/23 15:26 Freq: Status: Active Protocol: Document 06/18/23 15:27 NM (Rec: 06/18/23 16:44 NM [id number]) Current Condition History of Current Condition Onset Date 05/05/23 Current Complaints weakness, difficulty with ambulation, pain, swelling History of Current Condition Pt was walking down his deck stairs when he tripped and fell down several feet to the ground, landing on hi R leg. He was unable to weight bear immediately upon impact and had to be carried into the house by 2 people. Pt then went to the ED the same day where he was evaluated for an ankle fracture; radiographs reveal an anterior calcaneus fracture of the R ankle, but no fractures to the foot. Pt followed up with Dr. River who dx a Grade III sprain and instructed pt to rest, ice, and perform gentle ankle mobility exercises. Pt usually wears a neoprene sleeve for comfort on his R ankle. Currently, pt is able to ambulate household distances using a straight cane. He reports that he was doing better over the past week with his swelling, pain and mobility; however, he did yard work this past Saturday, re- aggravating the injury. Prior Treatments and Tests 05/05/23: Radiograph of R ankle - anterior calcaneus fracture lines 05/05/23: Radiograph of R foot - no displaced fracture Future Testing and Treatments Planned Pt is planning to follow up with Dr. River and is seeking an MRI Treatment Goals Patient/Caregiver Goals To walk again Do yard work again Prior Functional Status Baseline Function- ADL's Independent Baseline Function- Mobility Independent Baseline Function- Gait Did not use an assistive device Current Functional Impairments (Reported) Functional Limitations- ADL's Unable to perform stairs Functional Limitations- Mobility/Gait Unable to ambulate > 100ft without a cane and without pain Functional Limitations- Recreation/ Unable to perform yardwork due Hobbies to pain and weakness PT-OP-C Subjective Start: 06/18/23 15:26 Freq: Status: Active Protocol: Document 07/02/23 14:35 NM (Rec: 07/02/23 15:44 NM [id number]) OP-PT Subjective Patient Comments Patient Comments Pt reports that he has no pain in his R ankle/foot right now , but he did have some discomfort in his R toes after his exercises this morning. He has been compliant with his exercises, but he has difficulty with towel scrunches. PT-OP-D Balance Start: 06/18/23 15:26 Freq: Status: Active Protocol: Document 06/18/23 15:27 NM (Rec: 06/18/23 16:44 NM [id number]) OP-PT Balance Assessment Standing Balance Static Standing Balance Ability Fair Dynamic Standing Balance Ability Poor Device Used cane Balance Tests Single Limb Standing Single Limb- Right 0 Single Limb- Left 0 Allen Fall Scale Copyright Permission PT-OP-E Functional Tests Start: 06/18/23 15:26 Freq: Status: Active Protocol: Document 06/18/23 15:27 NM (Rec: 06/18/23 16:44 NM [id number]) Functional Tests Five Times Sit to Stand Test Score 13 sec Comments requires cane for balance PT-OP-F Manual Assessment Start: 06/18/23 15:26 Freq: Status: Active Protocol: Document 06/18/23 15:27 NM (Rec: 06/18/23 16:44 NM [id number]) Manual Assessments Soft Tissue Assessment Soft Tissue Mobility Assessment Mild painful plantarflexion ( full and 10-15 deg) + inversion. No pain with dorsiflexion + inversion. No pain with eversion + dorsiflexion or plantarflexion ranges. Joint Mobility Assessment Joint Mobility Assessment Good accessory joint motion at talocrural, subtalar joints. Limited ray mobility on R foot . PT-OP-G Mobility & Gait Start: 06/18/23 15:26 Freq: Status: Active Protocol: Document 06/18/23 15:27 NM (Rec: 06/18/23 16:44 NM [id number]) OP Gait Assessment Gait Gait Assistance Required: Independent Distance (Feet) 100 Able to Maintain Weight Bearing Status Yes During Gait Assistive Devices Assistive Device Straight Cane Orthotic/Prosthetic Devices or Brace: No Gait Deviations General Gait Pattern Antalgic,Decreased Stride Length,Wide Based Gait Factors Limiting Gait Function Factors Limiting Gait Function Decreased Strength,Limited Range of Motion,Pain Comments Gait Comments Pt presented with cane on R side. Educated during evaluation on correct placement on L side to offload RLE during stance. Overall, antalgic gait with wider stance for stability. PT-OP-H Neuro Start: 06/18/23 15:26 Freq: Status: Active Protocol: Document 06/18/23 15:27 NM (Rec: 06/18/23 16:44 NM [id number]) Sensation Evaluation Comments Summary Comments Some decreased light touch sensation to dorsum of R foot compared to L foot, but no other changes to R ankle/foot. PT-OP-J Posture/Palpation/Skin Start: 06/18/23 15:26 Freq: Status: Active Protocol: Document 06/18/23 15:27 NM (Rec: 06/18/23 16:44 NM [id number]) Posture Evaluation Position Standing Evaluation View Lateral Head/C-Spine Posture Flexed Shoulder Posture (L) Forward,(R) Forward Pelvis Posture Neutral Weight Distribution Weight Shifted Left,Decreased Wt.Bear on (R) Ankle/Foot Posture (R) Pronated,(R) Calcaneal Eversion Palpation Assessment Location R ankle Palpation Location medial, lateral, dorsum Palpation Findings Edema,Soft Tissue Tightness, Muscle Guarding,Tenderness Palpation Details Moderate swelling on R ankle compared to L ankle. R ankle appears bruised and purple compared to L ankle. No tenderness at R medial or lateral malleoli; no tenderness at R fibular head or navicular or 5th metatarsal . Skin Assessment Circumference Measurement L ankle Measurement (Centimeters) 54 Comments figure 8 R ankle Measurement (Centimeters) 59 Comments figure 8 PT-OP-K Range of Motion Start: 06/18/23 15:26 Freq: Status: Active Protocol: Document 06/18/23 15:27 NM (Rec: 06/18/23 16:44 NM [id number]) Knee Goniometric Range of Motion Knee L knee Knee ROM WFL Yes R knee Knee ROM WFL Yes Ankle and Foot Goniometric Range of Motion Ankle and Foot L ankle Ankle/Foot ROM WFL Yes Testing Position Sitting Dorsiflexion with Knee Flexed 10 Plantarflexion 50 Inversion 30 Eversion 5 R ankle Ankle/Foot ROM WFL No Testing Position Sitting Dorsiflexion with Knee Flexed 3 Plantarflexion 50 Inversion 5 Eversion 10 Comments dorsiflexion and inversion are painful Toe Range of Motion Toe L 1st Toe Toe ROM WFL No MTP Flexion Active (degrees) 45 MTP Extension Active (degrees) 20 R 1st Toe Toe ROM WFL No MTP Flexion Active (degrees) 40 MTP Extension Active (degrees) 20 Comments no pain with movement PT-OP-L Special Tests Start: 06/18/23 15:26 Freq: Status: Active Protocol: Document 06/18/23 15:27 NM (Rec: 06/18/23 16:44 NM [id number]) Special Tests Foot/Ankle Special Tests Syndesmotic Tear tests Test Results negative Comments ER stress test, squeeze test Talor Tilt Test Results negative Comments R ankle Anterior Draw Test Results negative Comments R ankle PT-OP-M Strength Start: 06/18/23 15:26 Freq: Status: Active Protocol: Document 06/18/23 15:27 NM (Rec: 06/18/23 16:44 NM [id number]) Hip Strength Hip Manual Muscle Testing L side Flexion (L2) 5 Normal Extension (S1) 4+ Good+ Abduction 4+ Good+ Adduction 4+ Good+ External Rotation 4+ Good+ Internal Rotation 4+ Good+ R side Flexion (L2) 5 Normal Extension (S1) 4+ Good+ Abduction 4+ Good+ Adduction 4+ Good+ External Rotation 4+ Good+ Internal Rotation 4+ Good+ Knee Strength Knee Manual Muscle Testing L side Flexion (S2) 4+ Good+ Extension (L3) 4+ Good+ R side Flexion (S2) 4- Good- Extension (L3) 4+ Good+ Ankle/Foot Strength Ankle and Foot Manual Muscle Testing L ankle Dorsiflexion (L4) 5 Normal Plantarflexion (S1) 2+ Poor+ Inversion 4 Good Eversion (S1) 4 Good Comments Unable to complete a single heel raise against gravity for plantarflexion MMT. Unable to perform single leg balance. When tested in sitting, 4/5 strength R ankle Dorsiflexion (L4) 4 Good Plantarflexion (S1) 2+ Poor+ Inversion 3+ Fair+ Eversion (S1) 3+ Fair+ Comments Pain with plantarflexion, inversion during MMT Unable to complete a single heel raise against gravity for plantarflexion MMT. When tested in sitting, 3+/5 strength (able to withstand minor resistance). Unable to perform single leg stance due to pain in weight bearing during plantarflexion testing. Toe Strength Toe Manual Muscle Testing Left Great Toe Flexion 4+ Good+ Extension 4+ Good+ Right Great Toe Flexion 4- Good- Extension 4- Good- PT-OP-Q Treatments Start: 06/18/23 15:26 Freq: Status: Active Protocol: Document 07/02/23 14:35 NM (Rec: 07/02/23 15:44 NM [id number]) Cardio Equipment Recumbent Stepper (Sci-Fit) Duration (Minutes) 4 Resistance 2.5 Other To increase RLE weight bearing , load tolerance Therapeutic Exercises Standing Exercises Dorsiflexion Mobilization Standing Exercise Name R foot on box>DF with band Side right Equipment Used 12 box, green tb for post glide of talus Reps/Minutes 10x5 Comments inc ROM with rep, dec ankle pain PF Equipment Used small ball btwn ankles for post tib activation Reps/Minutes 2x10 Comments cues to shift weight onto RLE; no pain with PF after DF mob Gastroc/Soleus stretch Standing Exercise Name 1. gastroc, 2. soleus Side bilateral Equipment Used SAMUEL Reps/Minutes 2x30 ea Gait Training Gait Activity Hurdles Description 6 hurdles Device Used none Level of Assistance CGA Surface stable Distance/Duration 4 laps x 20 ft (down and back) ea Treatment Focus balance, heel > toe, step length, foot clearance Comments 1. Fwd walking over hurdles 2. lateral walking over hurdles Pt requires cues for foot clearance (closer to viktoriya, flex hip/knee), heel strike then weight acceptance. Pt with mod sway that decreased with reps and cuing as pt moved closer to viktoriya. Normal Gait Device Used no AD Level of Assistance occasional CGA for stability, SBA mostly Surface stable tile/carpet Distance/Duration 2x200 ft Treatment Focus equal WB, equal step length, normal gait mechanics, gait speed Comments Pt with 0/10 pain. Requires cues for greater LLE step length to promote longer WB on RLE. 1st lap for emphasis on normal gait (heel>toe, foot clearance, step length) 2nd lap for gait speed with equal step length to prevent shuffling, looking up for balance Neuro Re-Education Treatment Balance Activities Single Leg Stance Details RLE Surface stable Equipment ballerina bar for UE support Reps/Duration 4x30 Comments Using 2 UE>1UE support, pt balance on RLE for stability, weight bearing, improve proprioception. CGA for stability to prevent LOB PT-OP-T Assessment and Plan Start: 06/18/23 15:26 Freq: Status: Active Protocol: Document 07/02/23 14:35 NM (Rec: 07/02/23 15:44 NM [id number]) Physical Therapy Assessment Goals Six Impairment Gait, Function Impairment Pt unable to ambulate >100 ft without pain Short Term Goal (STG) Pt will be able to ambulate at least 200 ft using LRAD for community ambulation. MET (06/28): ambulate x366 ft without AD STG Duration 4 weeks Fixer Boarding Room Goal (LTG) Pt will be able to ambulate for at least 8 minutes without a break using LRAD in order to perform yard work and return to community activities . LTG Duration 8 weeks Five Impairment Balance, Function Impairment Pt is unable to complete any stairs Short Term Goal (STG) Pt will be able to complete at least 2 stairs with RLE leading and with limited UE support for balance. STG Duration 4 weeks Half-Way Goal (LTG) Pt will be to complete at least 5 stairs with RLE leading and with 1 or no UE support for balance using LRAD in order to ascend/descend deck at home. LTG Duration 8 weeks Four Impairment swelling Impairment Pt is limited by moderate swelling in R ankle: figure 8 is 59 cm compared to L ankle 54 cm Short Term Goal (STG) Pt will demonstrate a decrease by at least 1 cm in R ankle swelling to allow for greater mobility. MET (06/28): circumference 56. 5 cm STG Duration 4 weeks [employer] Boarding Room Goal (LTG) Pt's R ankle circumference will be at least within 1 cm of the L ankle in order to demonstrate decreased swelling , to allow for greater weight bearing during mobility, and assist with managing pain. LTG Duration 8 weeks Three Impairment Strength Impairment Pt with 2+/5 R ankle plantarflexion strength against gravity Short Term Goal (STG) Pt will be able to perform at least 5 bilateral heel raises to demonstrate improved plantarflexion strength STG Duration 4 weeks [employer] Boarding Room Goal (LTG) Pt will be able to perform at least 1 unilateral heel raise on ea leg in order to demonstrate improved plantarflexion strength for foot propulsion during gait and during stairs. LTG Duration 8 weeks Two Impairment ROM Impairment Pt with limited R ankle dorsiflexion ROM (3 deg) Short Term Goal (STG) Pt will improve R ankle dorsiflexion ROM by at least 2 -3 degrees. STG Duration 4 weeks Half-Way Goal (LTG) Pt will improve R ankle dorsiflexion ROM by at least 5 degrees for improved ankle stability, balance, and to promote toe clearance while advancing RLE during gait. LTG Duration 8 weeks One Impairment ROM limitations Impairment Pt with limited R ankle inversion ROM (5 deg) Short Term Goal (STG) Pt will improve R ankle inversion ROM by at least 5 degrees. STG Duration 4 weeks Fixer Boarding Room Goal (LTG) Pt will improve ankle inversion ROM by at least 15 degrees for improved ankle stability and balance during gait. LTG Duration 8 weeks Assessment Summary Assessment Pt tolerated treatment well. He is still using cane for community ambulation but not at home. Gait training without cane today focused on promoting normal gait mechanics with good foot clearance, equal step length, increased gait speed, and better weight acceptance with heel>toe. Pt requires frequent cues to place more weight onto RLE during stance since it is not painful, but he consistently has decreased stance time on RLE. Viktoriya training performed to reinforce hip/knee flex into heel strike for better foot clearance (prevent shuffling), weight acceptance, and balance. Pt is close SBA-CGA for balance activities. Single limb stance on RLE began today and added to HEP to encourage better balance and increase comfort with non- painful weight bearing. Initiated a standing dorsiflexion mobilization to improve ankle mechanics for mobility. During initial attempt at standing plantarflexion, pt has 5/10 R ankle pain, which decreased 1/ 10 after dorsiflexion mobilization. Pt consistently mentions that he has R ankle pain initially during exercises that decreases with repetitions or with self mobilization. Pt would benefit from skilled PT to address deficits in ankle ROM, strength, balance, proprioception, and gait to return to PLOF. Physical Therapy Plan Frequency and Duration Frequency of Treatment 2x/Week Duration of treatment (weeks) 8 Plan of Care Start Date 06/18/23 Plan of Care End Date 08/06/23 Therapeutic Interventions Therapeutic Interventions Balance Training,Coordination Training,Gait Training,Home Exercise Program,Joint Mobilizations,Manual Therapy, Neuromuscular Re-education, Patient/Caregiver Education, Soft Tissue Mobilization, Therapeutic Activities, Therapeutic Exercises Modalities Cold Pack/Ice Massage,Electric Stimulation,Hot Packs Next Visit Focus/Plan Next Note Type Treatment Note Next Visit Plan Gait training, balance training. Progress ankle strengthening. Gentle dorsiflexion and plantarflexion manual mobilizations if tolerated to promote ROM prior to exercises . Outside gait training if possible
--- NOTE | 2023-07-11 10:18 | PT.OTN ---
Current Diagnoses Sprain of unspecified ligament of right ankle, initial encounter (07/11/23) Physical Therapy Treatment Note PT-OP-A Visit Information Start: 06/18/23 15:26 Freq: Status: Active Protocol: Document 07/11/23 07:33 NM (Rec: 07/11/23 08:17 NM [id number]) Out-Patient Physical Therapy Visit Information Visit Information Visit Type Treatment Note Visit Start Time 07:30 Visit Stop Time 08:15 Total Visit Minutes 45 Visit Number 6 Evaluation Information Evaluation Date 06/18/23 PT-OP-B Current Condition Start: 06/18/23 15:26 Freq: Status: Active Protocol: Document 06/18/23 15:27 NM (Rec: 06/18/23 16:44 NM [id number]) Current Condition History of Current Condition Onset Date 05/05/23 Current Complaints weakness, difficulty with ambulation, pain, swelling History of Current Condition Pt was walking down his deck stairs when he tripped and fell down several feet to the ground, landing on hi R leg. He was unable to weight bear immediately upon impact and had to be carried into the house by 2 people. Pt then went to the ED the same day where he was evaluated for an ankle fracture; radiographs reveal an anterior calcaneus fracture of the R ankle, but no fractures to the foot. Pt followed up with Dr. River who dx a Grade III sprain and instructed pt to rest, ice, and perform gentle ankle mobility exercises. Pt usually wears a neoprene sleeve for comfort on his R ankle. Currently, pt is able to ambulate household distances using a straight cane. He reports that he was doing better over the past week with his swelling, pain and mobility; however, he did yard work this past Saturday, re- aggravating the injury. Prior Treatments and Tests 05/05/23: Radiograph of R ankle - anterior calcaneus fracture lines 05/05/23: Radiograph of R foot - no displaced fracture Future Testing and Treatments Planned Pt is planning to follow up with Dr. River and is seeking an MRI Treatment Goals Patient/Caregiver Goals To walk again Do yard work again Prior Functional Status Baseline Function- ADL's Independent Baseline Function- Mobility Independent Baseline Function- Gait Did not use an assistive device Current Functional Impairments (Reported) Functional Limitations- ADL's Unable to perform stairs Functional Limitations- Mobility/Gait Unable to ambulate > 100ft without a cane and without pain Functional Limitations- Recreation/ Unable to perform yardwork due Hobbies to pain and weakness PT-OP-C Subjective Start: 06/18/23 15:26 Freq: Status: Active Protocol: Document 07/11/23 07:33 NM (Rec: 07/11/23 08:17 NM [id number]) OP-PT Subjective Patient Comments Patient Comments Pt reports that he doesn't have any R ankle pain; however , he says that his ankle is swelling. He has been compliant with his HEP, but he has difficulty with performing single leg stance for balance even with UE support. PT-OP-D Balance Start: 06/18/23 15:26 Freq: Status: Active Protocol: Document 06/18/23 15:27 NM (Rec: 06/18/23 16:44 NM [id number]) OP-PT Balance Assessment Standing Balance Static Standing Balance Ability Fair Dynamic Standing Balance Ability Poor Device Used cane Balance Tests Single Limb Standing Single Limb- Right 0 Single Limb- Left 0 Allen Fall Scale Copyright Permission PT-OP-E Functional Tests Start: 06/18/23 15:26 Freq: Status: Active Protocol: Document 06/18/23 15:27 NM (Rec: 06/18/23 16:44 NM [id number]) Functional Tests Five Times Sit to Stand Test Score 13 sec Comments requires cane for balance PT-OP-F Manual Assessment Start: 06/18/23 15:26 Freq: Status: Active Protocol: Document 06/18/23 15:27 NM (Rec: 06/18/23 16:44 NM [id number]) Manual Assessments Soft Tissue Assessment Soft Tissue Mobility Assessment Mild painful plantarflexion ( full and 10-15 deg) + inversion. No pain with dorsiflexion + inversion. No pain with eversion + dorsiflexion or plantarflexion ranges. Joint Mobility Assessment Joint Mobility Assessment Good accessory joint motion at talocrural, subtalar joints. Limited ray mobility on R foot . PT-OP-G Mobility & Gait Start: 06/18/23 15:26 Freq: Status: Active Protocol: Document 06/18/23 15:27 NM (Rec: 06/18/23 16:44 NM [id number]) OP Gait Assessment Gait Gait Assistance Required: Independent Distance (Feet) 100 Able to Maintain Weight Bearing Status Yes During Gait Assistive Devices Assistive Device Straight Cane Orthotic/Prosthetic Devices or Brace: No Gait Deviations General Gait Pattern Antalgic,Decreased Stride Length,Wide Based Gait Factors Limiting Gait Function Factors Limiting Gait Function Decreased Strength,Limited Range of Motion,Pain Comments Gait Comments Pt presented with cane on R side. Educated during evaluation on correct placement on L side to offload RLE during stance. Overall, antalgic gait with wider stance for stability. PT-OP-H Neuro Start: 06/18/23 15:26 Freq: Status: Active Protocol: Document 06/18/23 15:27 NM (Rec: 06/18/23 16:44 NM [id number]) Sensation Evaluation Comments Summary Comments Some decreased light touch sensation to dorsum of R foot compared to L foot, but no other changes to R ankle/foot. PT-OP-J Posture/Palpation/Skin Start: 06/18/23 15:26 Freq: Status: Active Protocol: Document 06/18/23 15:27 NM (Rec: 06/18/23 16:44 NM [id number]) Posture Evaluation Position Standing Evaluation View Lateral Head/C-Spine Posture Flexed Shoulder Posture (L) Forward,(R) Forward Pelvis Posture Neutral Weight Distribution Weight Shifted Left,Decreased Wt.Bear on (R) Ankle/Foot Posture (R) Pronated,(R) Calcaneal Eversion Palpation Assessment Location R ankle Palpation Location medial, lateral, dorsum Palpation Findings Edema,Soft Tissue Tightness, Muscle Guarding,Tenderness Palpation Details Moderate swelling on R ankle compared to L ankle. R ankle appears bruised and purple compared to L ankle. No tenderness at R medial or lateral malleoli; no tenderness at R fibular head or navicular or 5th metatarsal . Skin Assessment Circumference Measurement L ankle Measurement (Centimeters) 54 Comments figure 8 R ankle Measurement (Centimeters) 59 Comments figure 8 PT-OP-K Range of Motion Start: 06/18/23 15:26 Freq: Status: Active Protocol: Document 06/18/23 15:27 NM (Rec: 06/18/23 16:44 NM [id number]) Knee Goniometric Range of Motion Knee L knee Knee ROM WFL Yes R knee Knee ROM WFL Yes Ankle and Foot Goniometric Range of Motion Ankle and Foot L ankle Ankle/Foot ROM WFL Yes Testing Position Sitting Dorsiflexion with Knee Flexed 10 Plantarflexion 50 Inversion 30 Eversion 5 R ankle Ankle/Foot ROM WFL No Testing Position Sitting Dorsiflexion with Knee Flexed 3 Plantarflexion 50 Inversion 5 Eversion 10 Comments dorsiflexion and inversion are painful Toe Range of Motion Toe L 1st Toe Toe ROM WFL No MTP Flexion Active (degrees) 45 MTP Extension Active (degrees) 20 R 1st Toe Toe ROM WFL No MTP Flexion Active (degrees) 40 MTP Extension Active (degrees) 20 Comments no pain with movement PT-OP-L Special Tests Start: 06/18/23 15:26 Freq: Status: Active Protocol: Document 06/18/23 15:27 NM (Rec: 06/18/23 16:44 NM [id number]) Special Tests Foot/Ankle Special Tests Syndesmotic Tear tests Test Results negative Comments ER stress test, squeeze test Talor Tilt Test Results negative Comments R ankle Anterior Draw Test Results negative Comments R ankle PT-OP-M Strength Start: 06/18/23 15:26 Freq: Status: Active Protocol: Document 06/18/23 15:27 NM (Rec: 06/18/23 16:44 NM [id number]) Hip Strength Hip Manual Muscle Testing L side Flexion (L2) 5 Normal Extension (S1) 4+ Good+ Abduction 4+ Good+ Adduction 4+ Good+ External Rotation 4+ Good+ Internal Rotation 4+ Good+ R side Flexion (L2) 5 Normal Extension (S1) 4+ Good+ Abduction 4+ Good+ Adduction 4+ Good+ External Rotation 4+ Good+ Internal Rotation 4+ Good+ Knee Strength Knee Manual Muscle Testing L side Flexion (S2) 4+ Good+ Extension (L3) 4+ Good+ R side Flexion (S2) 4- Good- Extension (L3) 4+ Good+ Ankle/Foot Strength Ankle and Foot Manual Muscle Testing L ankle Dorsiflexion (L4) 5 Normal Plantarflexion (S1) 2+ Poor+ Inversion 4 Good Eversion (S1) 4 Good Comments Unable to complete a single heel raise against gravity for plantarflexion MMT. Unable to perform single leg balance. When tested in sitting, 4/5 strength R ankle Dorsiflexion (L4) 4 Good Plantarflexion (S1) 2+ Poor+ Inversion 3+ Fair+ Eversion (S1) 3+ Fair+ Comments Pain with plantarflexion, inversion during MMT Unable to complete a single heel raise against gravity for plantarflexion MMT. When tested in sitting, 3+/5 strength (able to withstand minor resistance). Unable to perform single leg stance due to pain in weight bearing during plantarflexion testing. Toe Strength Toe Manual Muscle Testing Left Great Toe Flexion 4+ Good+ Extension 4+ Good+ Right Great Toe Flexion 4- Good- Extension 4- Good- PT-OP-Q Treatments Start: 06/18/23 15:26 Freq: Status: Active Protocol: Document 07/11/23 07:33 NM (Rec: 07/11/23 08:17 NM [id number]) Therapeutic Exercises Standing Exercises Eccentric heel raise Standing Exercise Name trialed- difficult, will assess in next sessions Comments B up, RLE down Step up Standing Exercise Name 2x8 Side right Equipment Used 4 step Reps/Minutes 1 set with 2 finger UE for stab, 2nd without UE Comments tolerates well, no pain, able to accept weight Dorsiflexion Mobilization Standing Exercise Name R foot on box>DF with band Side right Equipment Used 12 box Reps/Minutes 5x10 Comments improved tolerance PF Standing Exercise Name Quarter heel raise (full rom but weight on big toe) Side bilateral Resistance body weight Equipment Used LLE only as kick stand for balance Reps/Minutes 2x8x2 hold at top Comments cues to keep weight on big toes, equal WB RLE Gastroc/Soleus stretch Standing Exercise Name 1. gastroc, 2. soleus Side bilateral Equipment Used SAMUEL Reps/Minutes 2x30 ea Manual Therapy Treatment Joint Mobilizations Ankle DF Joint Talocrural Direction A-P Grade II Body Position Supine Reps/Duration 5x10 Comments For pain relief/gentle mob to improve mobility. Pt reports no pain PT-OP-T Assessment and Plan Start: 06/18/23 15:26 Freq: Status: Active Protocol: Document 07/11/23 07:33 NM (Rec: 07/11/23 08:17 NM [id number]) Physical Therapy Assessment Rehab Potential Rehabilitation Potential Good Evaluation Complexity Number of Personal Factors/Comorbidities 1-2 Number of Body Systems Impaired 1-2 Clinical Presentation at Evaluation Evolving Impairments Impairments Activity Tolerance,Balance, Edema,Functional Activities, Functional Mobility,Gait,Pain, ROM,Soft Tissue Mobility, Strength,Transfers Other Impairments Fall risk due to balance Goals Six Impairment Gait, Function Impairment Pt unable to ambulate >100 ft without pain Short Term Goal (STG) Pt will be able to ambulate at least 200 ft using LRAD for community ambulation. MET (06/28): ambulate x366 ft without AD STG Duration 4 weeks Skilled Nursing Goal (LTG) Pt will be able to ambulate for at least 8 minutes without a break using LRAD in order to perform yard work and return to community activities . LTG Duration 8 weeks Five Impairment Balance, Function Impairment Pt is unable to complete any stairs Short Term Goal (STG) Pt will be able to complete at least 2 stairs with RLE leading and with limited UE support for balance. STG Duration 4 weeks Position Classification Manager Goal (LTG) Pt will be to complete at least 5 stairs with RLE leading and with 1 or no UE support for balance using LRAD in order to ascend/descend deck at home. LTG Duration 8 weeks Four Impairment swelling Impairment Pt is limited by moderate swelling in R ankle: figure 8 is 59 cm compared to L ankle 54 cm Short Term Goal (STG) Pt will demonstrate a decrease by at least 1 cm in R ankle swelling to allow for greater mobility. MET (06/28): circumference 56. 5 cm STG Duration 4 weeks Position Classification Manager Goal (LTG) Pt's R ankle circumference will be at least within 1 cm of the L ankle in order to demonstrate decreased swelling , to allow for greater weight bearing during mobility, and assist with managing pain. LTG Duration 8 weeks Three Impairment Strength Impairment Pt with 2+/5 R ankle plantarflexion strength against gravity Short Term Goal (STG) Pt will be able to perform at least 5 bilateral heel raises to demonstrate improved plantarflexion strength STG Duration 4 weeks Position Classification Manager Goal (LTG) Pt will be able to perform at least 1 unilateral heel raise on ea leg in order to demonstrate improved plantarflexion strength for foot propulsion during gait and during stairs. LTG Duration 8 weeks Two Impairment ROM Impairment Pt with limited R ankle dorsiflexion ROM (3 deg) Short Term Goal (STG) Pt will improve R ankle dorsiflexion ROM by at least 2 -3 degrees. STG Duration 4 weeks Skilled Nursing Goal (LTG) Pt will improve R ankle dorsiflexion ROM by at least 5 degrees for improved ankle stability, balance, and to promote toe clearance while advancing RLE during gait. LTG Duration 8 weeks One Impairment ROM limitations Impairment Pt with limited R ankle inversion ROM (5 deg) Short Term Goal (STG) Pt will improve R ankle inversion ROM by at least 5 degrees. STG Duration 4 weeks Position Classification Manager Goal (LTG) Pt will improve ankle inversion ROM by at least 15 degrees for improved ankle stability and balance during gait. LTG Duration 8 weeks Progress Towards Goals Progress Towards Goals Progressing Toward Goals Assessment Summary Assessment Pt tolerated tmt fair. He presents today with swelling in his posterior ankle especially along the Achilles tendon (figure 8 measurement 58 cm). He continues to use the cane for community ambulation and is concerned about stopping use of the cane when outside due to balance. Pt instructed to continue to use the cane for community ambulation for stability at this time as pt continues to have difficulty with weight acceptable on RLE, partially due to fear of weight bearing and due to discomfort. He is able to weight bear during gait, SLS on his RLE, and during 4 step ups without LLE without pain. PT discussed with pt the difference btwn pain/soreness and the importance of carefully progressing resistance to improve load tolerance/weight acceptance. Will continue to monitor pt's swelling and refer for imaging/ortho if does not decrease in future visits. Tmt focus today on encourage R ankle strengthening and mobility. Trialed eccentric heel raises but pt reports he is unable to transfer weight to RLE. However, he can perform a SLS and 4 step up without UE support. Pt's gait is antalgic and he has decreased R stance time. Pt would benefit from skilled PT to address deficits in R ankle mobility and strength, gait normalization, balance, and activity tolerance in order to return to PLOF. Physical Therapy Plan Frequency and Duration Frequency of Treatment 2x/Week Duration of treatment (weeks) 8 Plan of Care Start Date 06/18/23 Plan of Care End Date 08/06/23 Therapeutic Interventions Therapeutic Interventions Balance Training,Coordination Training,Gait Training,Home Exercise Program,Joint Mobilizations,Manual Therapy, Neuromuscular Re-education, Patient/Caregiver Education, Soft Tissue Mobilization, Therapeutic Activities, Therapeutic Exercises Modalities Cold Pack/Ice Massage,Electric Stimulation,Hot Packs Other Referrals/Consults Referrals/Consults Recommended Pt instructed to follow up with Dr. River to determine if additional imaging needed. Next Visit Focus/Plan Next Note Type Treatment Note Next Visit Plan Gait training, balance training. Progress ankle strengthening. Gentle dorsiflexion and plantarflexion manual mobilizations if tolerated to promote ROM prior to exercises . Outside gait training if possible
--- NOTE | 2023-07-15 09:19 | PT.OTN ---
Current Diagnoses Sprain of unspecified ligament of right ankle, initial encounter (07/15/23) Physical Therapy Treatment Note PT-OP-A Visit Information Start: 06/18/23 15:26 Freq: Status: Active Protocol: Document 07/15/23 09:19 NM (Rec: 07/15/23 09:45 NM [id number]) Out-Patient Physical Therapy Visit Information Visit Information Visit Type Treatment Note Visit Start Time 09:05 Visit Stop Time 09:45 Total Visit Minutes 40 Visit Number 7 Evaluation Information Evaluation Date 06/18/23 Precautions Precautions 05/05/23: radiograph of R anterior calcaneus fracture PT-OP-B Current Condition Start: 06/18/23 15:26 Freq: Status: Active Protocol: Document 06/18/23 15:27 NM (Rec: 06/18/23 16:44 NM [id number]) Current Condition History of Current Condition Onset Date 05/05/23 Current Complaints weakness, difficulty with ambulation, pain, swelling History of Current Condition Pt was walking down his deck stairs when he tripped and fell down several feet to the ground, landing on hi R leg. He was unable to weight bear immediately upon impact and had to be carried into the house by 2 people. Pt then went to the ED the same day where he was evaluated for an ankle fracture; radiographs reveal an anterior calcaneus fracture of the R ankle, but no fractures to the foot. Pt followed up with Dr. River who dx a Grade III sprain and instructed pt to rest, ice, and perform gentle ankle mobility exercises. Pt usually wears a neoprene sleeve for comfort on his R ankle. Currently, pt is able to ambulate household distances using a straight cane. He reports that he was doing better over the past week with his swelling, pain and mobility; however, he did yard work this past Saturday, re- aggravating the injury. Prior Treatments and Tests 05/05/23: Radiograph of R ankle - anterior calcaneus fracture lines 05/05/23: Radiograph of R foot - no displaced fracture Future Testing and Treatments Planned Pt is planning to follow up with Dr. River and is seeking an MRI Treatment Goals Patient/Caregiver Goals To walk again Do yard work again Prior Functional Status Baseline Function- ADL's Independent Baseline Function- Mobility Independent Baseline Function- Gait Did not use an assistive device Current Functional Impairments (Reported) Functional Limitations- ADL's Unable to perform stairs Functional Limitations- Mobility/Gait Unable to ambulate > 100ft without a cane and without pain Functional Limitations- Recreation/ Unable to perform yardwork due Hobbies to pain and weakness PT-OP-C Subjective Start: 06/18/23 15:26 Freq: Status: Active Protocol: Document 07/15/23 09:19 NM (Rec: 07/15/23 09:45 NM [id number]) OP-PT Subjective Patient Comments Patient Comments Pt reports that he doesn't have any R ankle pain today. Swelling is improved since last session, but his R ankle is still swollen (mc on posterior and lateral ankle). He has been compliant with HEP and experiences most difficulty with heel raises on the RLE. He has been icing and elevating his ankle over the weekend. PT-OP-D Balance Start: 06/18/23 15:26 Freq: Status: Active Protocol: Document 06/18/23 15:27 NM (Rec: 06/18/23 16:44 NM [id number]) OP-PT Balance Assessment Standing Balance Static Standing Balance Ability Fair Dynamic Standing Balance Ability Poor Device Used cane Balance Tests Single Limb Standing Single Limb- Right 0 Single Limb- Left 0 Allen Fall Scale Copyright Permission PT-OP-E Functional Tests Start: 06/18/23 15:26 Freq: Status: Active Protocol: Document 06/18/23 15:27 NM (Rec: 06/18/23 16:44 NM [id number]) Functional Tests Five Times Sit to Stand Test Score 13 sec Comments requires cane for balance PT-OP-F Manual Assessment Start: 06/18/23 15:26 Freq: Status: Active Protocol: Document 06/18/23 15:27 NM (Rec: 06/18/23 16:44 NM [id number]) Manual Assessments Soft Tissue Assessment Soft Tissue Mobility Assessment Mild painful plantarflexion ( full and 10-15 deg) + inversion. No pain with dorsiflexion + inversion. No pain with eversion + dorsiflexion or plantarflexion ranges. Joint Mobility Assessment Joint Mobility Assessment Good accessory joint motion at talocrural, subtalar joints. Limited ray mobility on R foot . PT-OP-G Mobility & Gait Start: 06/18/23 15:26 Freq: Status: Active Protocol: Document 06/18/23 15:27 NM (Rec: 06/18/23 16:44 NM [id number]) OP Gait Assessment Gait Gait Assistance Required: Independent Distance (Feet) 100 Able to Maintain Weight Bearing Status Yes During Gait Assistive Devices Assistive Device Straight Cane Orthotic/Prosthetic Devices or Brace: No Gait Deviations General Gait Pattern Antalgic,Decreased Stride Length,Wide Based Gait Factors Limiting Gait Function Factors Limiting Gait Function Decreased Strength,Limited Range of Motion,Pain Comments Gait Comments Pt presented with cane on R side. Educated during evaluation on correct placement on L side to offload RLE during stance. Overall, antalgic gait with wider stance for stability. PT-OP-H Neuro Start: 06/18/23 15:26 Freq: Status: Active Protocol: Document 06/18/23 15:27 NM (Rec: 06/18/23 16:44 NM [id number]) Sensation Evaluation Comments Summary Comments Some decreased light touch sensation to dorsum of R foot compared to L foot, but no other changes to R ankle/foot. PT-OP-J Posture/Palpation/Skin Start: 06/18/23 15:26 Freq: Status: Active Protocol: Document 06/18/23 15:27 NM (Rec: 06/18/23 16:44 NM [id number]) Posture Evaluation Position Standing Evaluation View Lateral Head/C-Spine Posture Flexed Shoulder Posture (L) Forward,(R) Forward Pelvis Posture Neutral Weight Distribution Weight Shifted Left,Decreased Wt.Bear on (R) Ankle/Foot Posture (R) Pronated,(R) Calcaneal Eversion Palpation Assessment Location R ankle Palpation Location medial, lateral, dorsum Palpation Findings Edema,Soft Tissue Tightness, Muscle Guarding,Tenderness Palpation Details Moderate swelling on R ankle compared to L ankle. R ankle appears bruised and purple compared to L ankle. No tenderness at R medial or lateral malleoli; no tenderness at R fibular head or navicular or 5th metatarsal . Skin Assessment Circumference Measurement L ankle Measurement (Centimeters) 54 Comments figure 8 R ankle Measurement (Centimeters) 59 Comments figure 8 PT-OP-K Range of Motion Start: 06/18/23 15:26 Freq: Status: Active Protocol: Document 06/18/23 15:27 NM (Rec: 06/18/23 16:44 NM [id number]) Knee Goniometric Range of Motion Knee L knee Knee ROM WFL Yes R knee Knee ROM WFL Yes Ankle and Foot Goniometric Range of Motion Ankle and Foot L ankle Ankle/Foot ROM WFL Yes Testing Position Sitting Dorsiflexion with Knee Flexed 10 Plantarflexion 50 Inversion 30 Eversion 5 R ankle Ankle/Foot ROM WFL No Testing Position Sitting Dorsiflexion with Knee Flexed 3 Plantarflexion 50 Inversion 5 Eversion 10 Comments dorsiflexion and inversion are painful Toe Range of Motion Toe L 1st Toe Toe ROM WFL No MTP Flexion Active (degrees) 45 MTP Extension Active (degrees) 20 R 1st Toe Toe ROM WFL No MTP Flexion Active (degrees) 40 MTP Extension Active (degrees) 20 Comments no pain with movement PT-OP-L Special Tests Start: 06/18/23 15:26 Freq: Status: Active Protocol: Document 06/18/23 15:27 NM (Rec: 06/18/23 16:44 NM [id number]) Special Tests Foot/Ankle Special Tests Syndesmotic Tear tests Test Results negative Comments ER stress test, squeeze test Talor Tilt Test Results negative Comments R ankle Anterior Draw Test Results negative Comments R ankle PT-OP-M Strength Start: 06/18/23 15:26 Freq: Status: Active Protocol: Document 06/18/23 15:27 NM (Rec: 06/18/23 16:44 NM [id number]) Hip Strength Hip Manual Muscle Testing L side Flexion (L2) 5 Normal Extension (S1) 4+ Good+ Abduction 4+ Good+ Adduction 4+ Good+ External Rotation 4+ Good+ Internal Rotation 4+ Good+ R side Flexion (L2) 5 Normal Extension (S1) 4+ Good+ Abduction 4+ Good+ Adduction 4+ Good+ External Rotation 4+ Good+ Internal Rotation 4+ Good+ Knee Strength Knee Manual Muscle Testing L side Flexion (S2) 4+ Good+ Extension (L3) 4+ Good+ R side Flexion (S2) 4- Good- Extension (L3) 4+ Good+ Ankle/Foot Strength Ankle and Foot Manual Muscle Testing L ankle Dorsiflexion (L4) 5 Normal Plantarflexion (S1) 2+ Poor+ Inversion 4 Good Eversion (S1) 4 Good Comments Unable to complete a single heel raise against gravity for plantarflexion MMT. Unable to perform single leg balance. When tested in sitting, 4/5 strength R ankle Dorsiflexion (L4) 4 Good Plantarflexion (S1) 2+ Poor+ Inversion 3+ Fair+ Eversion (S1) 3+ Fair+ Comments Pain with plantarflexion, inversion during MMT Unable to complete a single heel raise against gravity for plantarflexion MMT. When tested in sitting, 3+/5 strength (able to withstand minor resistance). Unable to perform single leg stance due to pain in weight bearing during plantarflexion testing. Toe Strength Toe Manual Muscle Testing Left Great Toe Flexion 4+ Good+ Extension 4+ Good+ Right Great Toe Flexion 4- Good- Extension 4- Good- PT-OP-Q Treatments Start: 06/18/23 15:26 Freq: Status: Active Protocol: Document 07/15/23 09:19 NM (Rec: 07/15/23 09:45 NM [id number]) Therapeutic Exercises Sitting Exercises AROM Sitting Exercise Name [employer] A/P, M/L Side right Equipment Used [employer] Reps/Minutes 2x1 min ea direction Comments no pain ankle inversion Side right Resistance [employer] [facility] (lvl3) Reps/Minutes 2x15 Comments cues for no hip motion; improved ROM since last; no pain ankle eversion Side right Resistance [employer] [facility] (lvl 3) Reps/Minutes 2x15 Comments cues for no hip motion; improved ROM; no pain with repetition ankle plantarflexion Side right Resistance [employer] tb (lvl 3) Reps/Minutes 2x15 Comments no pain ankle dorsiflexion Side right Resistance [employer] tb (lvl 3) Reps/Minutes 2x15 Comments no pain PT-OP-T Assessment and Plan Start: 06/18/23 15:26 Freq: Status: Active Protocol: Document 07/15/23 09:19 NM (Rec: 07/15/23 09:45 NM [id number]) Physical Therapy Assessment Rehab Potential Rehabilitation Potential Good Evaluation Complexity Number of Personal Factors/Comorbidities 1-2 Number of Body Systems Impaired 1-2 Clinical Presentation at Evaluation Evolving Impairments Impairments Activity Tolerance,Balance, Edema,Functional Activities, Functional Mobility,Gait,Pain, ROM,Soft Tissue Mobility, Strength,Transfers Other Impairments Fall risk due to balance Goals Six Impairment Gait, Function Impairment Pt unable to ambulate >100 ft without pain Short Term Goal (STG) Pt will be able to ambulate at least 200 ft using LRAD for community ambulation. MET (06/28): ambulate x366 ft without AD STG Duration 4 weeks [employer] Goal (LTG) Pt will be able to ambulate for at least 8 minutes without a break using LRAD in order to perform yard work and return to community activities . LTG Duration 8 weeks Five Impairment Balance, Function Impairment Pt is unable to complete any stairs Short Term Goal (STG) Pt will be able to complete at least 2 stairs with RLE leading and with limited UE support for balance. STG Duration 4 weeks Fdc Goal (LTG) Pt will be to complete at least 5 stairs with RLE leading and with 1 or no UE support for balance using LRAD in order to ascend/descend deck at home. LTG Duration 8 weeks Four Impairment swelling Impairment Pt is limited by moderate swelling in R ankle: figure 8 is 59 cm compared to L ankle 54 cm Short Term Goal (STG) Pt will demonstrate a decrease by at least 1 cm in R ankle swelling to allow for greater mobility. MET (06/28): circumference 56. 5 cm STG Duration 4 weeks Fdc Goal (LTG) Pt's R ankle circumference will be at least within 1 cm of the L ankle in order to demonstrate decreased swelling , to allow for greater weight bearing during mobility, and assist with managing pain. LTG Duration 8 weeks Three Impairment Strength Impairment Pt with 2+/5 R ankle plantarflexion strength against gravity Short Term Goal (STG) Pt will be able to perform at least 5 bilateral heel raises to demonstrate improved plantarflexion strength STG Duration 4 weeks [employer] Goal (LTG) Pt will be able to perform at least 1 unilateral heel raise on ea leg in order to demonstrate improved plantarflexion strength for foot propulsion during gait and during stairs. LTG Duration 8 weeks Two Impairment ROM Impairment Pt with limited R ankle dorsiflexion ROM (3 deg) Short Term Goal (STG) Pt will improve R ankle dorsiflexion ROM by at least 2 -3 degrees. STG Duration 4 weeks [employer] Goal (LTG) Pt will improve R ankle dorsiflexion ROM by at least 5 degrees for improved ankle stability, balance, and to promote toe clearance while advancing RLE during gait. LTG Duration 8 weeks One Impairment ROM limitations Impairment Pt with limited R ankle inversion ROM (5 deg) Short Term Goal (STG) Pt will improve R ankle inversion ROM by at least 5 degrees. STG Duration 4 weeks Fdc Goal (LTG) Pt will improve ankle inversion ROM by at least 15 degrees for improved ankle stability and balance during gait. LTG Duration 8 weeks Progress Towards Goals Progress Towards Goals Progressing Toward Goals Assessment Summary Assessment Due to pt swelling in his R ankle, pt did not perform weight bearing activities today. He still has swelling in his posterior ankle along the Achilles today but it is decreased compared to last (figure 8 57.5 cm, circumference at malleoli 37 cm). Pt now reports occasional sharp pain under his foot with ambulation when in R stance, which is new and began before last session (pt did not inform PT). The pain is variable and seems to move locations. Tmt focus on seated strengthening and ROM to decrease weighbearing. PT assessed ankle to determine source of swelling: no new ankle instability, able to perform 30 sec SLS on RLE with UE support for balance and no pain. With vibration testing for a possible fracture, he does not foot or ankle pain when tuning fork vibrating at various bony points of ankle/ foot. ROM is not decreased (R ankle DF 8 deg, PF 50 deg). [place] ankle rules are negative. PT will follow up with referring about possible follow-up imaging to rule out stress fracture or additional soft tissue injury if swelling or symptoms worsen . Pt would benefit from skilled PT to address impairments in gait, balance, ankle strength and mobility in order to return to PLOF. Physical Therapy Plan Frequency and Duration Frequency of Treatment 2x/Week Duration of treatment (weeks) 8 Plan of Care Start Date 06/18/23 Plan of Care End Date 08/06/23 Therapeutic Interventions Therapeutic Interventions Balance Training,Coordination Training,Gait Training,Home Exercise Program,Joint Mobilizations,Manual Therapy, Neuromuscular Re-education, Patient/Caregiver Education, Soft Tissue Mobilization, Therapeutic Activities, Therapeutic Exercises Modalities Cold Pack/Ice Massage,Electric Stimulation,Hot Packs Other Referrals/Consults Referrals/Consults Recommended Pt instructed to follow up with Dr. River to determine if additional imaging needed. Next Visit Focus/Plan Next Note Type Treatment Note Next Visit Plan Gait training, balance training. Progress ankle strengthening as tolerated.
--- NOTE | 2023-07-19 11:32 | PT.OTN ---
Current Diagnoses Sprain of unspecified ligament of right ankle, initial encounter (07/19/23) Physical Therapy Treatment Note PT-OP-A Visit Information Start: 06/18/23 15:26 Freq: Status: Active Protocol: Document 07/19/23 09:55 NM (Rec: 07/19/23 10:33 NM [id number]) Out-Patient Physical Therapy Visit Information Visit Information Visit Type Progress Note Visit Start Time 09:47 Visit Stop Time 10:30 Total Visit Minutes 43 Visit Number 8 Evaluation Information Evaluation Date 06/18/23 Precautions Precautions 05/05/23: radiograph of R anterior calcaneus fracture PT-OP-B Current Condition Start: 06/18/23 15:26 Freq: Status: Active Protocol: Document 06/18/23 15:27 NM (Rec: 06/18/23 16:44 NM [id number]) Current Condition History of Current Condition Onset Date 05/05/23 Current Complaints weakness, difficulty with ambulation, pain, swelling History of Current Condition Pt was walking down his deck stairs when he tripped and fell down several feet to the ground, landing on hi R leg. He was unable to weight bear immediately upon impact and had to be carried into the house by 2 people. Pt then went to the ED the same day where he was evaluated for an ankle fracture; radiographs reveal an anterior calcaneus fracture of the R ankle, but no fractures to the foot. Pt followed up with Dr. River who dx a Grade III sprain and instructed pt to rest, ice, and perform gentle ankle mobility exercises. Pt usually wears a neoprene sleeve for comfort on his R ankle. Currently, pt is able to ambulate household distances using a straight cane. He reports that he was doing better over the past week with his swelling, pain and mobility; however, he did yard work this past Saturday, re- aggravating the injury. Prior Treatments and Tests 05/05/23: Radiograph of R ankle - anterior calcaneus fracture lines 05/05/23: Radiograph of R foot - no displaced fracture Future Testing and Treatments Planned Pt is planning to follow up with Dr. River and is seeking an MRI Treatment Goals Patient/Caregiver Goals To walk again Do yard work again Prior Functional Status Baseline Function- ADL's Independent Baseline Function- Mobility Independent Baseline Function- Gait Did not use an assistive device Current Functional Impairments (Reported) Functional Limitations- ADL's Unable to perform stairs Functional Limitations- Mobility/Gait Unable to ambulate > 100ft without a cane and without pain Functional Limitations- Recreation/ Unable to perform yardwork due Hobbies to pain and weakness PT-OP-C Subjective Start: 06/18/23 15:26 Freq: Status: Active Protocol: Document 07/19/23 09:55 NM (Rec: 07/19/23 10:33 NM [id number]) OP-PT Subjective Patient Comments Patient Comments Pt presents to clinic without his cane. He reports that he just finished a 2.5 mi walk in [facility] with his dog without his cane. He states that has no R ankle or foot pain/discomfort similar to his descriptions in last 2 sessions; reports that it has resolved. He has had no difficulty with his exercises with the exception of B heel raises because his brain can' t understand that it's ok to put weight on his right leg during that exercise. He reports that the swelling in his posterior ankle (achilles) is significantly reduced and does not limit him at all; he has been using ibuprofen, compression socks, and icing. He also reports that he's been sleeping better, which he thinks helps. He also wants to move down to 1x/wk due to time constraints. Patient Reported Progress Improving PT-OP-D Balance Start: 06/18/23 15:26 Freq: Status: Active Protocol: Document 06/18/23 15:27 NM (Rec: 06/18/23 16:44 NM [id number]) OP-PT Balance Assessment Standing Balance Static Standing Balance Ability Fair Dynamic Standing Balance Ability Poor Device Used cane Balance Tests Single Limb Standing Single Limb- Right 0 Single Limb- Left 0 Allen Fall Scale Copyright Permission PT-OP-E Functional Tests Start: 06/18/23 15:26 Freq: Status: Active Protocol: Document 06/18/23 15:27 NM (Rec: 06/18/23 16:44 NM [id number]) Functional Tests Five Times Sit to Stand Test Score 13 sec Comments requires cane for balance PT-OP-F Manual Assessment Start: 06/18/23 15:26 Freq: Status: Active Protocol: Document 06/18/23 15:27 NM (Rec: 06/18/23 16:44 NM [id number]) Manual Assessments Soft Tissue Assessment Soft Tissue Mobility Assessment Mild painful plantarflexion ( full and 10-15 deg) + inversion. No pain with dorsiflexion + inversion. No pain with eversion + dorsiflexion or plantarflexion ranges. Joint Mobility Assessment Joint Mobility Assessment Good accessory joint motion at talocrural, subtalar joints. Limited ray mobility on R foot . PT-OP-G Mobility & Gait Start: 06/18/23 15:26 Freq: Status: Active Protocol: Document 06/18/23 15:27 NM (Rec: 06/18/23 16:44 NM [id number]) OP Gait Assessment Gait Gait Assistance Required: Independent Distance (Feet) 100 Able to Maintain Weight Bearing Status Yes During Gait Assistive Devices Assistive Device Straight Cane Orthotic/Prosthetic Devices or Brace: No Gait Deviations General Gait Pattern Antalgic,Decreased Stride Length,Wide Based Gait Factors Limiting Gait Function Factors Limiting Gait Function Decreased Strength,Limited Range of Motion,Pain Comments Gait Comments Pt presented with cane on R side. Educated during evaluation on correct placement on L side to offload RLE during stance. Overall, antalgic gait with wider stance for stability. PT-OP-H Neuro Start: 06/18/23 15:26 Freq: Status: Active Protocol: Document 06/18/23 15:27 NM (Rec: 06/18/23 16:44 NM [id number]) Sensation Evaluation Comments Summary Comments Some decreased light touch sensation to dorsum of R foot compared to L foot, but no other changes to R ankle/foot. PT-OP-J Posture/Palpation/Skin Start: 06/18/23 15:26 Freq: Status: Active Protocol: Document 06/18/23 15:27 NM (Rec: 06/18/23 16:44 NM [id number]) Posture Evaluation Position Standing Evaluation View Lateral Head/C-Spine Posture Flexed Shoulder Posture (L) Forward,(R) Forward Pelvis Posture Neutral Weight Distribution Weight Shifted Left,Decreased Wt.Bear on (R) Ankle/Foot Posture (R) Pronated,(R) Calcaneal Eversion Palpation Assessment Location R ankle Palpation Location medial, lateral, dorsum Palpation Findings Edema,Soft Tissue Tightness, Muscle Guarding,Tenderness Palpation Details Moderate swelling on R ankle compared to L ankle. R ankle appears bruised and purple compared to L ankle. No tenderness at R medial or lateral malleoli; no tenderness at R fibular head or navicular or 5th metatarsal . Skin Assessment Circumference Measurement L ankle Measurement (Centimeters) 54 Comments figure 8 R ankle Measurement (Centimeters) 59 Comments figure 8 PT-OP-K Range of Motion Start: 06/18/23 15:26 Freq: Status: Active Protocol: Document 06/18/23 15:27 NM (Rec: 06/18/23 16:44 NM [id number]) Knee Goniometric Range of Motion Knee L knee Knee ROM WFL Yes R knee Knee ROM WFL Yes Ankle and Foot Goniometric Range of Motion Ankle and Foot L ankle Ankle/Foot ROM WFL Yes Testing Position Sitting Dorsiflexion with Knee Flexed 10 Plantarflexion 50 Inversion 30 Eversion 5 R ankle Ankle/Foot ROM WFL No Testing Position Sitting Dorsiflexion with Knee Flexed 3 Plantarflexion 50 Inversion 5 Eversion 10 Comments dorsiflexion and inversion are painful Toe Range of Motion Toe L 1st Toe Toe ROM WFL No MTP Flexion Active (degrees) 45 MTP Extension Active (degrees) 20 R 1st Toe Toe ROM WFL No MTP Flexion Active (degrees) 40 MTP Extension Active (degrees) 20 Comments no pain with movement PT-OP-L Special Tests Start: 06/18/23 15:26 Freq: Status: Active Protocol: Document 06/18/23 15:27 NM (Rec: 06/18/23 16:44 NM [id number]) Special Tests Foot/Ankle Special Tests Syndesmotic Tear tests Test Results negative Comments ER stress test, squeeze test Talor Tilt Test Results negative Comments R ankle Anterior Draw Test Results negative Comments R ankle PT-OP-M Strength Start: 06/18/23 15:26 Freq: Status: Active Protocol: Document 06/18/23 15:27 NM (Rec: 06/18/23 16:44 NM [id number]) Hip Strength Hip Manual Muscle Testing L side Flexion (L2) 5 Normal Extension (S1) 4+ Good+ Abduction 4+ Good+ Adduction 4+ Good+ External Rotation 4+ Good+ Internal Rotation 4+ Good+ R side Flexion (L2) 5 Normal Extension (S1) 4+ Good+ Abduction 4+ Good+ Adduction 4+ Good+ External Rotation 4+ Good+ Internal Rotation 4+ Good+ Knee Strength Knee Manual Muscle Testing L side Flexion (S2) 4+ Good+ Extension (L3) 4+ Good+ R side Flexion (S2) 4- Good- Extension (L3) 4+ Good+ Ankle/Foot Strength Ankle and Foot Manual Muscle Testing L ankle Dorsiflexion (L4) 5 Normal Plantarflexion (S1) 2+ Poor+ Inversion 4 Good Eversion (S1) 4 Good Comments Unable to complete a single heel raise against gravity for plantarflexion MMT. Unable to perform single leg balance. When tested in sitting, 4/5 strength R ankle Dorsiflexion (L4) 4 Good Plantarflexion (S1) 2+ Poor+ Inversion 3+ Fair+ Eversion (S1) 3+ Fair+ Comments Pain with plantarflexion, inversion during MMT Unable to complete a single heel raise against gravity for plantarflexion MMT. When tested in sitting, 3+/5 strength (able to withstand minor resistance). Unable to perform single leg stance due to pain in weight bearing during plantarflexion testing. Toe Strength Toe Manual Muscle Testing Left Great Toe Flexion 4+ Good+ Extension 4+ Good+ Right Great Toe Flexion 4- Good- Extension 4- Good- PT-OP-Q Treatments Start: 06/18/23 15:26 Freq: Status: Active Protocol: Document 07/19/23 09:55 NM (Rec: 07/19/23 10:33 NM [id number]) Cardio Equipment Recumbent Bicycle Duration (Minutes) 5 Resistance 4 Therapeutic Exercises Standing Exercises Step up Standing Exercise Name no pain reported, demos min- mod ankle instability Side right Equipment Used 6 steps, no PCI SECURITY CONSULTANT Reps/Minutes 2x8 Comments RLE leading, cues for slow descent as step down with RLE on step PF Standing Exercise Name heel raise Gait Training Gait Activity Stairs Description 6 steps Device Used none Level of Assistance IND, 1 Handrail for balance Distance/Duration 4x4 steps ascent/descent ea Treatment Focus RLE WB, single limb balance, reciprocal gait Comments 1. RLE leading 2. Reciprocal gait Pt demos difficulty during descent with RLE on step. Demos decreased stability, poor hip control, poor eccentric lowering on RLE to prevent LLE landing softly on lower step. Pt cued for slower ascent and descent for better control and to focus on RLE lowering Normal Gait Device Used none Level of Assistance IND Surface stable Distance/Duration 500 ft Treatment Focus normal mechanics, improve R WB Comments Pt demos improved balance, ankle stability and control compared to previous sessions. Still antalgic as pt has difficulty with weight acceptance (no pain) and propulsion (no pain) on RLE. Cued for equal step length, equal step time Manual Therapy Treatment Soft Tissue Mobilization Soft tissue mobilization Body Location R plantarfascia, R achilles Mobilization Type Cross-Friction,Myofascial Release,Strumming,Other Intensity/Depth Moderate Body Position supine and prone Comments 1. R plantar fascia to decrease cramping sensation under R foot. Pt reports relief 2. R achilles cross friction and soft tissue to improve circulation, decrease swelling Neuro Re-Education Treatment Balance Activities Single Leg Stance Details Muscle re-education Surface stable Comments 1. attempt no PCI SECURITY CONSULTANT to determine how long pt can stand on RLE = 5 sec, 8 sec 2. 1 PCI SECURITY CONSULTANT = 30 sec x2 PT-OP-T Assessment and Plan Start: 06/18/23 15:26 Freq: Status: Active Protocol: Document 07/19/23 09:55 NM (Rec: 07/19/23 10:33 NM [id number]) Physical Therapy Assessment Goals Six Impairment Gait, Function Impairment Pt unable to ambulate >100 ft without pain Short Term Goal (STG) Pt will be able to ambulate at least 200 ft using LRAD for community ambulation. MET (06/28): ambulate x366 ft without AD STG Duration 4 weeks Prison Goal (LTG) Pt will be able to ambulate for at least 8 minutes without a break using LRAD in order to perform yard work and return to community activities . MET 07/19/23: per pt report, he walked 2.5 mi at [facility] today without his cane and without pain LTG Duration 8 weeks Five Impairment Balance, Function Impairment Pt is unable to complete any stairs Short Term Goal (STG) Pt will be able to complete at least 2 stairs with RLE leading and with limited UE support for balance. MET 07/19/23 STG Duration 4 weeks Prison Goal (LTG) Pt will be to complete at least 5 stairs with RLE leading and with 1 or no UE support for balance using LRAD in order to ascend/descend deck at home. PARTIALLY MET 07/19/23: able to perform multiple reps of 4 stairs ascending and descending with RLE leading and reciprocally; demos poor eccentric lowering with RLE on step but no reported pain LTG Duration 8 weeks Four Impairment swelling Impairment Pt is limited by moderate swelling in R ankle: figure 8 is 59 cm compared to L ankle 54 cm Short Term Goal (STG) Pt will demonstrate a decrease by at least 1 cm in R ankle swelling to allow for greater mobility. MET (06/28): circumference 56. 5 cm 07/19/23: 57 cm STG Duration 4 weeks Senior Java J[employer] Developer Goal (LTG) Pt's R ankle circumference will be at least within 1 cm of the L ankle in order to demonstrate decreased swelling , to allow for greater weight bearing during mobility, and assist with managing pain. NOT MET 07/19/23: 57 cm ( improvement from last session) . Swelling increased as exercises transitioned from seated to weight bearing LTG Duration 8 weeks Three Impairment Strength Impairment Pt with 2+/5 R ankle plantarflexion strength against gravity Short Term Goal (STG) Pt will be able to perform at least 5 bilateral heel raises to demonstrate improved plantarflexion strength NOT MET 07/19/23: unable to perform with equal WB between BLE STG Duration 4 weeks Senior Java J2Ee Developer Goal (LTG) Pt will be able to perform at least 1 unilateral heel raise on ea leg in order to demonstrate improved plantarflexion strength for foot propulsion during gait and during stairs. NOT MET 07/19/23: unable to perform bilaterally LTG Duration 8 weeks Two Impairment ROM Impairment Pt with limited R ankle dorsiflexion ROM (3 deg) Short Term Goal (STG) Pt will improve R ankle dorsiflexion ROM by at least 2 -3 degrees. MET 07/19/23: R ankle DF 8 deg past neutral STG Duration 4 weeks Senior Java J2Ee Developer Goal (LTG) Pt will improve R ankle dorsiflexion ROM by at least 5 degrees for improved ankle stability, balance, and to promote toe clearance while advancing RLE during gait. MET 07/19/23: R ankle DF 8 deg past neutral LTG Duration 8 weeks One Impairment ROM limitations Impairment Pt with limited R ankle inversion ROM (5 deg) Short Term Goal (STG) Pt will improve R ankle inversion ROM by at least 5 degrees. MET 07/19/23: R ankle inversion ROM 25 deg STG Duration 4 weeks Prison Goal (LTG) Pt will improve ankle inversion ROM by at least 15 degrees for improved ankle stability and balance during gait. MET 07/19/23: R ankle inversion ROM 25 deg LTG Duration 8 weeks Assessment Summary Assessment Pt presents to clinic without his cane and with decreased R ankle swelling compared to previous session. He demos improved activity tolerance and reports improvements in overall WB/activity tolerance since Saturday. He reports he was able to walk 2.5 mi today without his cane on uneven surfaces. The various foot pain reported in previous session is gone. Pt continues to demo antalgic gait with poor loading response during stance, decrease step length, and reduced propulsion. He has improved since IE in his tolerance for ambulation and overall RLE weight acceptance. He also continues to be unable to perform a bilateral heel raise while maintaining at least equal weight bearing on his RLE; however, this is not due to a lack of ankle strength, stability, or pain. Pt reports that he mentally cannot force himself to shift his weight onto his R ankle out of fear. He does not have any ankle pain, just fearful. PT instructed pt to use LLE as a kickstand for additional support and to load his RLE; however, he still shifts majority of his weight onto his LLE. He is able to perform several sets of stairs reciprocally and with RLE leading with and without 1 handrail for balance. Pt demos poor eccentric lowering using RLE and R ankle stability during stairs. Pt has met 3/6 LTG, partially met 1, and not met 2 goals. He has been seen in the clinic since 06/18. Overall, pt has progressed in R ankle strength, ankle stability, balance, and tolerance for activity since IE. He reports that he can perform almost all ADLs/IADLS with few restrictions, mainly limited by feeling unstable at his ankle. Pt also reports that he will not be able to make 2 sessions/wk much longer , so decreasing number of sessions to 1x/wk. Will initiate hip strengthening and more balance activities in future sessions. Pt would benefit from further skilled intervention to address weakness in B hips, improve R ankle strength for gait, gait training, balance, addressing kinesiophobia, and proprioception in order return to PLOF. Physical Therapy Plan Frequency and Duration Frequency of Treatment 1x/wk after 07/25 Duration of treatment (weeks) 10 Plan of Care Start Date 06/18/23 Plan of Care End Date 08/23/23 Therapeutic Interventions Therapeutic Interventions Balance Training,Coordination Training,Gait Training,Home Exercise Program,Joint Mobilizations,Manual Therapy, Neuromuscular Re-education, Patient/Caregiver Education, Soft Tissue Mobilization, Therapeutic Activities, Therapeutic Exercises Modalities Cold Pack/Ice Massage,Electric Stimulation,Hot Packs Next Visit Focus/Plan Next Note Type Treatment Note Next Visit Plan Next session: Gait training ( hurdles, etc), stair training, balance training (tandem, tandem walking, more SLS etc). Initiate hip (glute max/med) strengthening and add to HEP B heel raises > single heel raise as tolerated. Emphasize RLE WB
--- NOTE | 2023-07-23 08:16 | PT.OTN ---
Current Diagnoses Sprain of unspecified ligament of right ankle, initial encounter (07/23/23) Physical Therapy Treatment Note PT-OP-A Visit Information Start: 06/18/23 15:26 Freq: Status: Active Protocol: Document 07/23/23 07:32 SP (Rec: 07/23/23 08:20 SP [id number]) Out-Patient Physical Therapy Visit Information Visit Information Visit Type Progress Note Visit Note 08/21 after PN Visit Start Time 07:32 Visit Stop Time 08:16 Total Visit Minutes 44 Visit Number 9 Number of SOFT DRINK POWDER MIXER Visits 1 Evaluation Information Evaluation Date 06/18/23 Precautions Precautions 05/05/23: radiograph of R anterior calcaneus fracture PT-OP-B Current Condition Start: 06/18/23 15:26 Freq: Status: Active Protocol: Document 06/18/23 15:27 NM (Rec: 06/18/23 16:44 NM [id number]) Current Condition History of Current Condition Onset Date 05/05/23 Current Complaints weakness, difficulty with ambulation, pain, swelling History of Current Condition Pt was walking down his deck stairs when he tripped and fell down several feet to the ground, landing on hi R leg. He was unable to weight bear immediately upon impact and had to be carried into the house by 2 people. Pt then went to the ED the same day where he was evaluated for an ankle fracture; radiographs reveal an anterior calcaneus fracture of the R ankle, but no fractures to the foot. Pt followed up with Dr. River who dx a Grade III sprain and instructed pt to rest, ice, and perform gentle ankle mobility exercises. Pt usually wears a neoprene sleeve for comfort on his R ankle. Currently, pt is able to ambulate household distances using a straight cane. He reports that he was doing better over the past week with his swelling, pain and mobility; however, he did yard work this past Saturday, re- aggravating the injury. Prior Treatments and Tests 05/05/23: Radiograph of R ankle - anterior calcaneus fracture lines 05/05/23: Radiograph of R foot - no displaced fracture Future Testing and Treatments Planned Pt is planning to follow up with Dr. River and is seeking an MRI Treatment Goals Patient/Caregiver Goals To walk again Do yard work again Prior Functional Status Baseline Function- ADL's Independent Baseline Function- Mobility Independent Baseline Function- Gait Did not use an assistive device Current Functional Impairments (Reported) Functional Limitations- ADL's Unable to perform stairs Functional Limitations- Mobility/Gait Unable to ambulate > 100ft without a cane and without pain Functional Limitations- Recreation/ Unable to perform yardwork due Hobbies to pain and weakness PT-OP-C Subjective Start: 06/18/23 15:26 Freq: Status: Active Protocol: Document 07/23/23 07:32 SP (Rec: 07/23/23 08:20 SP [id number]) OP-PT Subjective Patient Comments Patient Comments Pt reports is icing and taking ibuprofen since last tx to support swelling reduction, stated is helping. He stated getting better performance doing ABCs. PT-OP-D Balance Start: 06/18/23 15:26 Freq: Status: Active Protocol: Document 06/18/23 15:27 NM (Rec: 06/18/23 16:44 NM [id number]) OP-PT Balance Assessment Standing Balance Static Standing Balance Ability Fair Dynamic Standing Balance Ability Poor Device Used cane Balance Tests Single Limb Standing Single Limb- Right 0 Single Limb- Left 0 Allen Fall Scale Copyright Permission PT-OP-E Functional Tests Start: 06/18/23 15:26 Freq: Status: Active Protocol: Document 06/18/23 15:27 NM (Rec: 06/18/23 16:44 NM [id number]) Functional Tests Five Times Sit to Stand Test Score 13 sec Comments requires cane for balance PT-OP-F Manual Assessment Start: 06/18/23 15:26 Freq: Status: Active Protocol: Document 06/18/23 15:27 NM (Rec: 06/18/23 16:44 NM [id number]) Manual Assessments Soft Tissue Assessment Soft Tissue Mobility Assessment Mild painful plantarflexion ( full and 10-15 deg) + inversion. No pain with dorsiflexion + inversion. No pain with eversion + dorsiflexion or plantarflexion ranges. Joint Mobility Assessment Joint Mobility Assessment Good accessory joint motion at talocrural, subtalar joints. Limited ray mobility on R foot . PT-OP-G Mobility & Gait Start: 06/18/23 15:26 Freq: Status: Active Protocol: Document 06/18/23 15:27 NM (Rec: 06/18/23 16:44 NM [id number]) OP Gait Assessment Gait Gait Assistance Required: Independent Distance (Feet) 100 Able to Maintain Weight Bearing Status Yes During Gait Assistive Devices Assistive Device Straight Cane Orthotic/Prosthetic Devices or Brace: No Gait Deviations General Gait Pattern Antalgic,Decreased Stride Length,Wide Based Gait Factors Limiting Gait Function Factors Limiting Gait Function Decreased Strength,Limited Range of Motion,Pain Comments Gait Comments Pt presented with cane on R side. Educated during evaluation on correct placement on L side to offload RLE during stance. Overall, antalgic gait with wider stance for stability. PT-OP-H Neuro Start: 06/18/23 15:26 Freq: Status: Active Protocol: Document 06/18/23 15:27 NM (Rec: 06/18/23 16:44 NM [id number]) Sensation Evaluation Comments Summary Comments Some decreased light touch sensation to dorsum of R foot compared to L foot, but no other changes to R ankle/foot. PT-OP-J Posture/Palpation/Skin Start: 06/18/23 15:26 Freq: Status: Active Protocol: Document 06/18/23 15:27 NM (Rec: 06/18/23 16:44 NM [id number]) Posture Evaluation Position Standing Evaluation View Lateral Head/C-Spine Posture Flexed Shoulder Posture (L) Forward,(R) Forward Pelvis Posture Neutral Weight Distribution Weight Shifted Left,Decreased Wt.Bear on (R) Ankle/Foot Posture (R) Pronated,(R) Calcaneal Eversion Palpation Assessment Location R ankle Palpation Location medial, lateral, dorsum Palpation Findings Edema,Soft Tissue Tightness, Muscle Guarding,Tenderness Palpation Details Moderate swelling on R ankle compared to L ankle. R ankle appears bruised and purple compared to L ankle. No tenderness at R medial or lateral malleoli; no tenderness at R fibular head or navicular or 5th metatarsal . Skin Assessment Circumference Measurement L ankle Measurement (Centimeters) 54 Comments figure 8 R ankle Measurement (Centimeters) 59 Comments figure 8 PT-OP-K Range of Motion Start: 06/18/23 15:26 Freq: Status: Active Protocol: Document 06/18/23 15:27 NM (Rec: 06/18/23 16:44 NM [id number]) Knee Goniometric Range of Motion Knee L knee Knee ROM WFL Yes R knee Knee ROM WFL Yes Ankle and Foot Goniometric Range of Motion Ankle and Foot L ankle Ankle/Foot ROM WFL Yes Testing Position Sitting Dorsiflexion with Knee Flexed 10 Plantarflexion 50 Inversion 30 Eversion 5 R ankle Ankle/Foot ROM WFL No Testing Position Sitting Dorsiflexion with Knee Flexed 3 Plantarflexion 50 Inversion 5 Eversion 10 Comments dorsiflexion and inversion are painful Toe Range of Motion Toe L 1st Toe Toe ROM WFL No MTP Flexion Active (degrees) 45 MTP Extension Active (degrees) 20 R 1st Toe Toe ROM WFL No MTP Flexion Active (degrees) 40 MTP Extension Active (degrees) 20 Comments no pain with movement PT-OP-L Special Tests Start: 06/18/23 15:26 Freq: Status: Active Protocol: Document 06/18/23 15:27 NM (Rec: 06/18/23 16:44 NM [id number]) Special Tests Foot/Ankle Special Tests Syndesmotic Tear tests Test Results negative Comments ER stress test, squeeze test Talor Tilt Test Results negative Comments R ankle Anterior Draw Test Results negative Comments R ankle PT-OP-M Strength Start: 06/18/23 15:26 Freq: Status: Active Protocol: Document 06/18/23 15:27 NM (Rec: 06/18/23 16:44 NM [id number]) Hip Strength Hip Manual Muscle Testing L side Flexion (L2) 5 Normal Extension (S1) 4+ Good+ Abduction 4+ Good+ Adduction 4+ Good+ External Rotation 4+ Good+ Internal Rotation 4+ Good+ R side Flexion (L2) 5 Normal Extension (S1) 4+ Good+ Abduction 4+ Good+ Adduction 4+ Good+ External Rotation 4+ Good+ Internal Rotation 4+ Good+ Knee Strength Knee Manual Muscle Testing L side Flexion (S2) 4+ Good+ Extension (L3) 4+ Good+ R side Flexion (S2) 4- Good- Extension (L3) 4+ Good+ Ankle/Foot Strength Ankle and Foot Manual Muscle Testing L ankle Dorsiflexion (L4) 5 Normal Plantarflexion (S1) 2+ Poor+ Inversion 4 Good Eversion (S1) 4 Good Comments Unable to complete a single heel raise against gravity for plantarflexion MMT. Unable to perform single leg balance. When tested in sitting, 4/5 strength R ankle Dorsiflexion (L4) 4 Good Plantarflexion (S1) 2+ Poor+ Inversion 3+ Fair+ Eversion (S1) 3+ Fair+ Comments Pain with plantarflexion, inversion during MMT Unable to complete a single heel raise against gravity for plantarflexion MMT. When tested in sitting, 3+/5 strength (able to withstand minor resistance). Unable to perform single leg stance due to pain in weight bearing during plantarflexion testing. Toe Strength Toe Manual Muscle Testing Left Great Toe Flexion 4+ Good+ Extension 4+ Good+ Right Great Toe Flexion 4- Good- Extension 4- Good- PT-OP-Q Treatments Start: 06/18/23 15:26 Freq: Status: Active Protocol: Document 07/23/23 07:32 SP (Rec: 07/23/23 08:20 SP [id number]) Cardio Equipment Recumbent Bicycle Duration (Minutes) 6 Resistance 4>10>20>28 for 3 min> 20 Seat Position 8 Other cued ankle ROM, good feedback effort, painfree Gym Equipment Shuttle Recovery uneven squats Details future Therapeutic Exercises Sitting Exercises ankle inversion Sitting Exercise Name added to HEP Side right Resistance Dark Blue tb (lvl4) Equipment Used sitting Reps/Minutes 2x15 Comments cues for no hip motion; improved ROM since last; no pain ankle eversion Sitting Exercise Name added to HEP Side right Resistance Dark Blue tb (lvl 4) Equipment Used sitting Reps/Minutes 2x15 Comments cues for no hip motion; improved ROM; no pain with repetition ankle plantarflexion Sitting Exercise Name PF (hammock)/ eccentric DF- added to HEP Side right Resistance dark blue green tb (lvl 4)- hammock positioning Equipment Used long sitting Reps/Minutes x30 reps Comments Cued eccentric slow pacing DF, no pain ankle dorsiflexion Sitting Exercise Name added to HEP Side right Resistance dark blue tb (lvl 4) Equipment Used sitting Reps/Minutes 2x15 Comments no pain Standing Exercises heel toe walking Standing Exercise Name heel strike, slow eccentric PF gait Side bilateral Reps/Minutes 30 ft x3 laps Comments cued slower eccentric pacing control- challenge but better understanding star glide Standing Exercise Name eccentric ROM DF/med and Lat stability: RLE stance LE Side right Resistance LLE slider 11, 9, 7 o'clock Reps/Minutes 3 reps x3 sets (alternate sets with LLE for RLE recovery) Comments cued knee behind and with mid foot. step down Standing Exercise Name eccentric RLE DF (fwd) Side right Resistance rail support Equipment Used 4, 6 step Reps/Minutes 2x5 reps Comments cued slow eccentric R knee flexion during RLE descend Eccentric heel raise Standing Exercise Name trialed- difficult, will assess in next sessions Reps/Minutes 2 reps Comments B up, RLE down unable perform (trialed last activity) Manual Therapy Treatment Soft Tissue Mobilization scar mobility Body Location - noted stitch, will call doc. Comments manual and ed self application - better understanding Soft tissue mobilization Body Location R plantarfascia, R achilles Mobilization Type Cross-Friction,Myofascial Release,Strumming,Other Intensity/Depth Moderate Body Position supine and prone Comments 1. R plantar fascia to decrease cramping sensation under R foot. Pt reports relief 2. R achilles cross friction and soft tissue to improve circulation, decrease swelling Joint Mobilizations Ankle DF Joint Talocrural, 1-5 MTPs Direction A-P Grade II Body Position long sit Reps/Duration 5x10 Comments For pain relief/gentle mob to improve mobility. Pt reports no pain, manual and ed demo self 1-4 MTPs at home. PT-OP-T Assessment and Plan Start: 06/18/23 15:26 Freq: Status: Active Protocol: Document 07/23/23 07:32 SP (Rec: 07/23/23 08:20 SP [id number]) Physical Therapy Assessment Goals Six Impairment Gait, Function Impairment Pt unable to ambulate >100 ft without pain Short Term Goal (STG) Pt will be able to ambulate at least 200 ft using LRAD for community ambulation. MET (06/28): ambulate x366 ft without AD STG Duration 4 weeks MET Rubber Cutter Goal (LTG) Pt will be able to ambulate for at least 8 minutes without a break using LRAD in order to perform yard work and return to community activities . MET 07/19/23: per pt report, he walked 2.5 mi at [facility] today without his cane and without pain LTG Duration 8 weeks MET Five Impairment Balance, Function Impairment Pt is unable to complete any stairs Short Term Goal (STG) Pt will be able to complete at least 2 stairs with RLE leading and with limited UE support for balance. MET 07/19/23 STG Duration 4 weeks MET Skilled Nursing Goal (LTG) Pt will be to complete at least 5 stairs with RLE leading and with 1 or no UE support for balance using LRAD in order to ascend/descend deck at home. PARTIALLY MET 07/19/23: able to perform multiple reps of 4 stairs ascending and descending with RLE leading and reciprocally; demos poor eccentric lowering with RLE on step but no reported pain LTG Duration 8 weeks partiall met 07/19/23 Four Impairment swelling Impairment Pt is limited by moderate swelling in R ankle: figure 8 is 59 cm compared to L ankle 54 cm Short Term Goal (STG) Pt will demonstrate a decrease by at least 1 cm in R ankle swelling to allow for greater mobility. MET (06/28): circumference 56. 5 cm 07/19/23: 57 cm STG Duration 4 weeks Skilled Nursing Goal (LTG) Pt's R ankle circumference will be at least within 1 cm of the L ankle in order to demonstrate decreased swelling , to allow for greater weight bearing during mobility, and assist with managing pain. NOT MET 07/19/23: 57 cm ( improvement from last session) . Swelling increased as exercises transitioned from seated to weight bearing LTG Duration 8 weeks Three Impairment Strength Impairment Pt with 2+/5 R ankle plantarflexion strength against gravity Short Term Goal (STG) Pt will be able to perform at least 5 bilateral heel raises to demonstrate improved plantarflexion strength NOT MET 07/19/23: unable to perform with equal WB between BLE STG Duration 4 weeks slow progression 07/19 Rubber Cutter Goal (LTG) Pt will be able to perform at least 1 unilateral heel raise on ea leg in order to demonstrate improved plantarflexion strength for foot propulsion during gait and during stairs. NOT MET 07/19/23: unable to perform bilaterally LTG Duration 8 weeks Two Impairment ROM Impairment Pt with limited R ankle dorsiflexion ROM (3 deg) Short Term Goal (STG) Pt will improve R ankle dorsiflexion ROM by at least 2 -3 degrees. MET 07/19/23: R ankle DF 8 deg past neutral STG Duration 4 weeks Rubber Cutter Goal (LTG) Pt will improve R ankle dorsiflexion ROM by at least 5 degrees for improved ankle stability, balance, and to promote toe clearance while advancing RLE during gait. MET 07/19/23: R ankle DF 8 deg past neutral LTG Duration 8 weeks One Impairment ROM limitations Impairment Pt with limited R ankle inversion ROM (5 deg) Short Term Goal (STG) Pt will improve R ankle inversion ROM by at least 5 degrees. MET 07/19/23: R ankle inversion ROM 25 deg STG Duration 4 weeks MET Rubber Cutter Goal (LTG) Pt will improve ankle inversion ROM by at least 15 degrees for improved ankle stability and balance during gait. MET 07/19/23: R ankle inversion ROM 25 deg LTG Duration 8 weeks Assessment Summary Assessment Pt good feedback to manual and understanding of self application. Good effort ankle strengthening with increased resistance painfree, cued for slow eccentric motion hammock TB position PF/DF progress gastroc strengthening. Good ankle muscular effort during initiated SLS star glides (opp LE on glider). Slight improvement eccentric DF with cues slower DF descend stairs. Physical Therapy Plan Frequency and Duration Frequency of Treatment 1x/wk after 07/25 Duration of treatment (weeks) 10 Plan of Care Start Date 06/18/23 Plan of Care End Date 08/23/23 Therapeutic Interventions Therapeutic Interventions Balance Training,Coordination Training,Gait Training,Home Exercise Program,Joint Mobilizations,Manual Therapy, Neuromuscular Re-education, Patient/Caregiver Education, Soft Tissue Mobilization, Therapeutic Activities, Therapeutic Exercises Modalities Cold Pack/Ice Massage,Electric Stimulation,Hot Packs Other Referrals/Consults Referrals/Consults Recommended Pt instructed to follow up with Dr. River to determine if additional imaging needed. Next Visit Focus/Plan Next Note Type Treatment Note Next Visit Plan Next session: Gait training ( hurdles, etc), stair training, balance training (tandem, tandem walking, more SLS uneven foam etc). Start Shuttle recovery/rocker board f/b/lat. POC: Initiate hip (glute max/ med) strengthening and add to HEP B heel raises > single heel raise as tolerated. Emphasize RLE WB
--- NOTE | 2023-07-25 12:19 | PT.OTN ---
Current Diagnoses Sprain of unspecified ligament of right ankle, initial encounter (07/25/23) Physical Therapy Treatment Note PT-OP-A Visit Information Start: 06/18/23 15:26 Freq: Status: Active Protocol: Document 07/25/23 07:31 NM (Rec: 07/25/23 08:15 NM [id number]) Out-Patient Physical Therapy Visit Information Visit Information Visit Type Treatment Note Visit Note 09/21 after PN Visit Start Time 07:30 Visit Stop Time 08:15 Total Visit Minutes 45 Visit Number 10 Evaluation Information Evaluation Date 06/18/23 Precautions Precautions 05/05/23: radiograph of R anterior calcaneus fracture PT-OP-B Current Condition Start: 06/18/23 15:26 Freq: Status: Active Protocol: Document 06/18/23 15:27 NM (Rec: 06/18/23 16:44 NM [id number]) Current Condition History of Current Condition Onset Date 05/05/23 Current Complaints weakness, difficulty with ambulation, pain, swelling History of Current Condition Pt was walking down his deck stairs when he tripped and fell down several feet to the ground, landing on hi R leg. He was unable to weight bear immediately upon impact and had to be carried into the house by 2 people. Pt then went to the ED the same day where he was evaluated for an ankle fracture; radiographs reveal an anterior calcaneus fracture of the R ankle, but no fractures to the foot. Pt followed up with Dr. River who dx a Grade III sprain and instructed pt to rest, ice, and perform gentle ankle mobility exercises. Pt usually wears a neoprene sleeve for comfort on his R ankle. Currently, pt is able to ambulate household distances using a straight cane. He reports that he was doing better over the past week with his swelling, pain and mobility; however, he did yard work this past Saturday, re- aggravating the injury. Prior Treatments and Tests 05/05/23: Radiograph of R ankle - anterior calcaneus fracture lines 05/05/23: Radiograph of R foot - no displaced fracture Future Testing and Treatments Planned Pt is planning to follow up with Dr. River and is seeking an MRI Treatment Goals Patient/Caregiver Goals To walk again Do yard work again Prior Functional Status Baseline Function- ADL's Independent Baseline Function- Mobility Independent Baseline Function- Gait Did not use an assistive device Current Functional Impairments (Reported) Functional Limitations- ADL's Unable to perform stairs Functional Limitations- Mobility/Gait Unable to ambulate > 100ft without a cane and without pain Functional Limitations- Recreation/ Unable to perform yardwork due Hobbies to pain and weakness PT-OP-C Subjective Start: 06/18/23 15:26 Freq: Status: Active Protocol: Document 07/25/23 07:31 NM (Rec: 07/25/23 08:15 NM [id number]) OP-PT Subjective Patient Comments Patient Comments Pt reports that he is no longer icing his ankle, and he has no pain. He is sore on the lateral ankle after last session. Patient Reported Progress Improving PT-OP-D Balance Start: 06/18/23 15:26 Freq: Status: Active Protocol: Document 06/18/23 15:27 NM (Rec: 06/18/23 16:44 NM [id number]) OP-PT Balance Assessment Standing Balance Static Standing Balance Ability Fair Dynamic Standing Balance Ability Poor Device Used cane Balance Tests Single Limb Standing Single Limb- Right 0 Single Limb- Left 0 Aleln Fall Scale Copyright Permission PT-OP-E Functional Tests Start: 06/18/23 15:26 Freq: Status: Active Protocol: Document 06/18/23 15:27 NM (Rec: 06/18/23 16:44 NM [id number]) Functional Tests Five Times Sit to Stand Test Score 13 sec Comments requires cane for balance PT-OP-F Manual Assessment Start: 06/18/23 15:26 Freq: Status: Active Protocol: Document 06/18/23 15:27 NM (Rec: 06/18/23 16:44 NM [id number]) Manual Assessments Soft Tissue Assessment Soft Tissue Mobility Assessment Mild painful plantarflexion ( full and 10-15 deg) + inversion. No pain with dorsiflexion + inversion. No pain with eversion + dorsiflexion or plantarflexion ranges. Joint Mobility Assessment Joint Mobility Assessment Good accessory joint motion at talocrural, subtalar joints. Limited ray mobility on R foot . PT-OP-G Mobility & Gait Start: 06/18/23 15:26 Freq: Status: Active Protocol: Document 06/18/23 15:27 NM (Rec: 06/18/23 16:44 NM [id number]) OP Gait Assessment Gait Gait Assistance Required: Independent Distance (Feet) 100 Able to Maintain Weight Bearing Status Yes During Gait Assistive Devices Assistive Device Straight Cane Orthotic/Prosthetic Devices or Brace: No Gait Deviations General Gait Pattern Antalgic,Decreased Stride Length,Wide Based Gait Factors Limiting Gait Function Factors Limiting Gait Function Decreased Strength,Limited Range of Motion,Pain Comments Gait Comments Pt presented with cane on R side. Educated during evaluation on correct placement on L side to offload RLE during stance. Overall, antalgic gait with wider stance for stability. PT-OP-H Neuro Start: 06/18/23 15:26 Freq: Status: Active Protocol: Document 06/18/23 15:27 NM (Rec: 06/18/23 16:44 NM [id number]) Sensation Evaluation Comments Summary Comments Some decreased light touch sensation to dorsum of R foot compared to L foot, but no other changes to R ankle/foot. PT-OP-J Posture/Palpation/Skin Start: 06/18/23 15:26 Freq: Status: Active Protocol: Document 06/18/23 15:27 NM (Rec: 06/18/23 16:44 NM [id number]) Posture Evaluation Position Standing Evaluation View Lateral Head/C-Spine Posture Flexed Shoulder Posture (L) Forward,(R) Forward Pelvis Posture Neutral Weight Distribution Weight Shifted Left,Decreased Wt.Bear on (R) Ankle/Foot Posture (R) Pronated,(R) Calcaneal Eversion Palpation Assessment Location R ankle Palpation Location medial, lateral, dorsum Palpation Findings Edema,Soft Tissue Tightness, Muscle Guarding,Tenderness Palpation Details Moderate swelling on R ankle compared to L ankle. R ankle appears bruised and purple compared to L ankle. No tenderness at R medial or lateral malleoli; no tenderness at R fibular head or navicular or 5th metatarsal . Skin Assessment Circumference Measurement L ankle Measurement (Centimeters) 54 Comments figure 8 R ankle Measurement (Centimeters) 59 Comments figure 8 PT-OP-K Range of Motion Start: 06/18/23 15:26 Freq: Status: Active Protocol: Document 06/18/23 15:27 NM (Rec: 06/18/23 16:44 NM [id number]) Knee Goniometric Range of Motion Knee L knee Knee ROM WFL Yes R knee Knee ROM WFL Yes Ankle and Foot Goniometric Range of Motion Ankle and Foot L ankle Ankle/Foot ROM WFL Yes Testing Position Sitting Dorsiflexion with Knee Flexed 10 Plantarflexion 50 Inversion 30 Eversion 5 R ankle Ankle/Foot ROM WFL No Testing Position Sitting Dorsiflexion with Knee Flexed 3 Plantarflexion 50 Inversion 5 Eversion 10 Comments dorsiflexion and inversion are painful Toe Range of Motion Toe L 1st Toe Toe ROM WFL No MTP Flexion Active (degrees) 45 MTP Extension Active (degrees) 20 R 1st Toe Toe ROM WFL No MTP Flexion Active (degrees) 40 MTP Extension Active (degrees) 20 Comments no pain with movement PT-OP-L Special Tests Start: 06/18/23 15:26 Freq: Status: Active Protocol: Document 06/18/23 15:27 NM (Rec: 06/18/23 16:44 NM [id number]) Special Tests Foot/Ankle Special Tests Syndesmotic Tear tests Test Results negative Comments ER stress test, squeeze test Talor Tilt Test Results negative Comments R ankle Anterior Draw Test Results negative Comments R ankle PT-OP-M Strength Start: 06/18/23 15:26 Freq: Status: Active Protocol: Document 06/18/23 15:27 NM (Rec: 06/18/23 16:44 NM [id number]) Hip Strength Hip Manual Muscle Testing L side Flexion (L2) 5 Normal Extension (S1) 4+ Good+ Abduction 4+ Good+ Adduction 4+ Good+ External Rotation 4+ Good+ Internal Rotation 4+ Good+ R side Flexion (L2) 5 Normal Extension (S1) 4+ Good+ Abduction 4+ Good+ Adduction 4+ Good+ External Rotation 4+ Good+ Internal Rotation 4+ Good+ Knee Strength Knee Manual Muscle Testing L side Flexion (S2) 4+ Good+ Extension (L3) 4+ Good+ R side Flexion (S2) 4- Good- Extension (L3) 4+ Good+ Ankle/Foot Strength Ankle and Foot Manual Muscle Testing L ankle Dorsiflexion (L4) 5 Normal Plantarflexion (S1) 2+ Poor+ Inversion 4 Good Eversion (S1) 4 Good Comments Unable to complete a single heel raise against gravity for plantarflexion MMT. Unable to perform single leg balance. When tested in sitting, 4/5 strength R ankle Dorsiflexion (L4) 4 Good Plantarflexion (S1) 2+ Poor+ Inversion 3+ Fair+ Eversion (S1) 3+ Fair+ Comments Pain with plantarflexion, inversion during MMT Unable to complete a single heel raise against gravity for plantarflexion MMT. When tested in sitting, 3+/5 strength (able to withstand minor resistance). Unable to perform single leg stance due to pain in weight bearing during plantarflexion testing. Toe Strength Toe Manual Muscle Testing Left Great Toe Flexion 4+ Good+ Extension 4+ Good+ Right Great Toe Flexion 4- Good- Extension 4- Good- PT-OP-Q Treatments Start: 06/18/23 15:26 Freq: Status: Active Protocol: Document 07/25/23 07:31 NM (Rec: 07/25/23 08:15 NM [id number]) Cardio Equipment Treadmill Duration (Minutes) 2 Speed 0.8 Incline 1 Other warm up, for R push off training Gym Equipment Shuttle Balance Stance Details red Reps/Duration 2x60 ea le Comments A/P, M/L CGA-min A for balance. Cues for weight shift toward RLE to keep board balanced. Pt able to perform with difficulty, but eventually able to stabilize the board and maintain more equal WB. No reports of discomfort or pain in R ankle Therapeutic Exercises Standing Exercises heel toe walking Standing Exercise Name Heel <> toe rock Side bilateral Equipment Used stationary; 1 [employer]LE [employer]PECTOR Reps/Minutes 60 ea leg Comments cues for eccentric control of PF, the strong PF push off star glide Standing Exercise Name eccentric ROM DF/med and Lat stability: RLE stance LE Side right Resistance LLE slider 12, 9, 7 o'clock Reps/Minutes 3 reps x3 sets (alternate sets with LLE for RLE recovery) Comments cued knee behind and with mid foot. Dorsiflexion Mobilization Side bilateral Equipment Used 12 step Reps/Minutes 5x10 Comments band for greater posterior mobilization PF Standing Exercise Name elevated heel cord stretch > heel raise Side bilateral Equipment Used 4 step, VE[employer] INSPECTOR for balance; heels hanging off edge Reps/Minutes 2x10 Comments improved WB on RLE, able to perform heel raise Gait Training Gait Activity Hurdles Description Fwd step, LLE lead for R push off Device Used none Level of Assistance IND Surface stable Distance/Duration 3 reps x6 hurdles (10 ft ea direction) Treatment Focus R push off (PF) during gait Comments Improved push off Normal Gait Device Used none Level of Assistance IND Surface stable Distance/Duration 500 ft Treatment Focus nml mechanics Comments Pt demos improved push off with RLE, less knee flex. Cues for trunk rotation/arm swing. Pt attempts to compensate for smaller R step with L knee flex before his R leg is ready to hit the ground again. Pt cued to use quad, maintain stable knee. Demos improvement with cueing. Neuro Re-Education Treatment Balance Activities Hurdles Details lateral stepping Surface stable Equipment 6 hurdles Reps/Duration 6 hurdles x 3 reps (10 ft ea) Comments For medial/lateral balance; cues for neutral hip and toe rotation to prevent compensation. Pt reports feeling unbalance, but demos mild to no sway and no instances of LOB. PT-OP-T Assessment and Plan Start: 06/18/23 15:26 Freq: Status: Active Protocol: Document 07/25/23 07:31 NM (Rec: 07/25/23 08:15 NM [id number]) Physical Therapy Assessment Goals Five Impairment Balance, Function Impairment Pt is unable to complete any stairs Short Term Goal (STG) Pt will be able to complete at least 2 stairs with RLE leading and with limited UE support for balance. MET 07/19/23 STG Duration 4 weeks MET Long-Term Goal (LTG) Pt will be to complete at least 5 stairs with RLE leading and with 1 or no UE support for balance using LRAD in order to ascend/descend deck at home. PARTIALLY MET 07/19/23: able to perform multiple reps of 4 stairs ascending and descending with RLE leading and reciprocally; demos poor eccentric lowering with RLE on step but no reported pain LTG Duration 8 weeks partiall met 07/19/23 Four Impairment swelling Impairment Pt is limited by moderate swelling in R ankle: figure 8 is 59 cm compared to L ankle 54 cm Short Term Goal (STG) Pt will demonstrate a decrease by at least 1 cm in R ankle swelling to allow for greater mobility. MET (06/28): circumference 56. 5 cm 07/19/23: 57 cm STG Duration 4 weeks [place] Goal (LTG) Pt's R ankle circumference will be at least within 1 cm of the L ankle in order to demonstrate decreased swelling , to allow for greater weight bearing during mobility, and assist with managing pain. NOT MET 07/19/23: 57 cm ( improvement from last session) . Swelling increased as exercises transitioned from seated to weight bearing LTG Duration 8 weeks Three Impairment Strength Impairment Pt with 2+/5 R ankle plantarflexion strength against gravity Short Term Goal (STG) Pt will be able to perform at least 5 bilateral heel raises to demonstrate improved plantarflexion strength NOT MET 07/19/23: unable to perform with equal WB between BLE STG Duration 4 weeks slow progression 07/19 Long-Term Goal (LTG) Pt will be able to perform at least 1 unilateral heel raise on ea leg in order to demonstrate improved plantarflexion strength for foot propulsion during gait and during stairs. NOT MET 07/19/23: unable to perform bilaterally LTG Duration 8 weeks Two Impairment ROM Impairment Pt with limited R ankle dorsiflexion ROM (3 deg) Short Term Goal (STG) Pt will improve R ankle dorsiflexion ROM by at least 2 -3 degrees. MET 07/19/23: R ankle DF 8 deg past neutral STG Duration 4 weeks [place] Goal (LTG) Pt will improve R ankle dorsiflexion ROM by at least 5 degrees for improved ankle stability, balance, and to promote toe clearance while advancing RLE during gait. MET 07/19/23: R ankle DF 8 deg past neutral LTG Duration 8 weeks One Impairment ROM limitations Impairment Pt with limited R ankle inversion ROM (5 deg) Short Term Goal (STG) Pt will improve R ankle inversion ROM by at least 5 degrees. MET 07/19/23: R ankle inversion ROM 25 deg STG Duration 4 weeks MET [place] Goal (LTG) Pt will improve ankle inversion ROM by at least 15 degrees for improved ankle stability and balance during gait. MET 07/19/23: R ankle inversion ROM 25 deg LTG Duration 8 weeks Assessment Summary Assessment Pt demos improved heel > toe contact during loading response and better push off with RLE compared to previous sessions. Pt compensates with slight knee flex on LLE during R swing despite cueing for larger R step and stronger push off. Compared to IE and earlier sessions, pt demos gait most resembling normal mechanics with slight compensations. Pt able to perform B heel raises against gravity with a weight shift over to RLE for equal weight bearing and R plantarflexion strengthening using an elevated surface to encourage greater range of motion. Will progress as tolerated and re- trial eccentric single leg plantarflexion in next session . Initiated greater balance training to challenge medial/ lateral stability on stable and unstable surfaces. Pt able to perform equal weight bearing on shuttle recovery board anterior/posterior and medial/lateral with increased repetition and cues to shift weight to his R side. Pt would benefit from skilled PT to address impairments in gait, balance, R ankle strength, and endurance in order to maximize gains made during PT and to return to PLOF. Physical Therapy Plan Frequency and Duration Frequency of Treatment 1x/wk after 07/25 Duration of treatment (weeks) 10 Plan of Care Start Date 06/18/23 Plan of Care End Date 08/23/23 Therapeutic Interventions Therapeutic Interventions Balance Training,Coordination Training,Gait Training,Home Exercise Program,Joint Mobilizations,Manual Therapy, Neuromuscular Re-education, Patient/Caregiver Education, Soft Tissue Mobilization, Therapeutic Activities, Therapeutic Exercises Modalities Cold Pack/Ice Massage,Electric Stimulation,Hot Packs Other Referrals/Consults Referrals/Consults Recommended Pt instructed to follow up with Dr. River to determine if additional imaging needed. Next Visit Focus/Plan Next Note Type Treatment Note Next Visit Plan Next session: Gait training ( hurdles, etc), stair training, balance training (tandem, tandem walking, more SLS uneven foam etc). Start Shuttle recovery/rocker board f/b/lat. POC: Initiate hip (glute max/ med) strengthening and add to HEP B heel raises > single heel raise as tolerated. Emphasize RLE WB
--- NOTE | 2023-08-02 08:15 | PT.OTN ---
Current Diagnoses Sprain of unspecified ligament of right ankle, initial encounter (08/02/23) Physical Therapy Treatment Note PT-OP-A Visit Information Start: 06/18/23 15:26 Freq: Status: Active Protocol: Document 08/02/23 07:30 SP (Rec: 08/02/23 08:56 SP [id number]) Out-Patient Physical Therapy Visit Information Visit Information Visit Type Treatment Note Visit Note 10/19 after PN Visit Start Time 07:30 Visit Stop Time 08:15 Total Visit Minutes 45 Visit Number 11 Number of CHORAL DIRECTOR Visits 1 Evaluation Information Evaluation Date 06/18/23 Precautions Precautions 05/05/23: radiograph of R anterior calcaneus fracture PT-OP-B Current Condition Start: 06/18/23 15:26 Freq: Status: Active Protocol: Document 06/18/23 15:27 NM (Rec: 06/18/23 16:44 NM [id number]) Current Condition History of Current Condition Onset Date 05/05/23 Current Complaints weakness, difficulty with ambulation, pain, swelling History of Current Condition Pt was walking down his deck stairs when he tripped and fell down several feet to the ground, landing on hi R leg. He was unable to weight bear immediately upon impact and had to be carried into the house by 2 people. Pt then went to the ED the same day where he was evaluated for an ankle fracture; radiographs reveal an anterior calcaneus fracture of the R ankle, but no fractures to the foot. Pt followed up with Dr. River who dx a Grade III sprain and instructed pt to rest, ice, and perform gentle ankle mobility exercises. Pt usually wears a neoprene sleeve for comfort on his R ankle. Currently, pt is able to ambulate household distances using a straight cane. He reports that he was doing better over the past week with his swelling, pain and mobility; however, he did yard work this past Saturday, re- aggravating the injury. Prior Treatments and Tests 05/05/23: Radiograph of R ankle - anterior calcaneus fracture lines 05/05/23: Radiograph of R foot - no displaced fracture Future Testing and Treatments Planned Pt is planning to follow up with Dr. River and is seeking an MRI Treatment Goals Patient/Caregiver Goals To walk again Do yard work again Prior Functional Status Baseline Function- ADL's Independent Baseline Function- Mobility Independent Baseline Function- Gait Did not use an assistive device Current Functional Impairments (Reported) Functional Limitations- ADL's Unable to perform stairs Functional Limitations- Mobility/Gait Unable to ambulate > 100ft without a cane and without pain Functional Limitations- Recreation/ Unable to perform yardwork due Hobbies to pain and weakness PT-OP-C Subjective Start: 06/18/23 15:26 Freq: Status: Active Protocol: Document 08/02/23 07:30 SP (Rec: 08/02/23 08:56 SP [id number]) OP-PT Subjective Patient Comments Patient Comments Pt not using cane now. He said felt ok after last tx but was pretty sore after 07/23 visit , felt little to aggressive. Demonstrates decrease calf toe off, stability in R knee loading and quicker heel strike on L. PT-OP-D Balance Start: 06/18/23 15:26 Freq: Status: Active Protocol: Document 06/18/23 15:27 NM (Rec: 06/18/23 16:44 NM [id number]) OP-PT Balance Assessment Standing Balance Static Standing Balance Ability Fair Dynamic Standing Balance Ability Poor Device Used cane Balance Tests Single Limb Standing Single Limb- Right 0 Single Limb- Left 0 Allen Fall Scale Copyright Permission PT-OP-E Functional Tests Start: 06/18/23 15:26 Freq: Status: Active Protocol: Document 06/18/23 15:27 NM (Rec: 06/18/23 16:44 NM [id number]) Functional Tests Five Times Sit to Stand Test Score 13 sec Comments requires cane for balance PT-OP-F Manual Assessment Start: 06/18/23 15:26 Freq: Status: Active Protocol: Document 06/18/23 15:27 NM (Rec: 06/18/23 16:44 NM [id number]) Manual Assessments Soft Tissue Assessment Soft Tissue Mobility Assessment Mild painful plantarflexion ( full and 10-15 deg) + inversion. No pain with dorsiflexion + inversion. No pain with eversion + dorsiflexion or plantarflexion ranges. Joint Mobility Assessment Joint Mobility Assessment Good accessory joint motion at talocrural, subtalar joints. Limited ray mobility on R foot . PT-OP-G Mobility & Gait Start: 06/18/23 15:26 Freq: Status: Active Protocol: Document 06/18/23 15:27 NM (Rec: 06/18/23 16:44 NM [id number]) OP Gait Assessment Gait Gait Assistance Required: Independent Distance (Feet) 100 Able to Maintain Weight Bearing Status Yes During Gait Assistive Devices Assistive Device Straight Cane Orthotic/Prosthetic Devices or Brace: No Gait Deviations General Gait Pattern Antalgic,Decreased Stride Length,Wide Based Gait Factors Limiting Gait Function Factors Limiting Gait Function Decreased Strength,Limited Range of Motion,Pain Comments Gait Comments Pt presented with cane on R side. Educated during evaluation on correct placement on L side to offload RLE during stance. Overall, antalgic gait with wider stance for stability. PT-OP-H Neuro Start: 06/18/23 15:26 Freq: Status: Active Protocol: Document 06/18/23 15:27 NM (Rec: 06/18/23 16:44 NM [id number]) Sensation Evaluation Comments Summary Comments Some decreased light touch sensation to dorsum of R foot compared to L foot, but no other changes to R ankle/foot. PT-OP-J Posture/Palpation/Skin Start: 06/18/23 15:26 Freq: Status: Active Protocol: Document 06/18/23 15:27 NM (Rec: 06/18/23 16:44 NM [id number]) Posture Evaluation Position Standing Evaluation View Lateral Head/C-Spine Posture Flexed Shoulder Posture (L) Forward,(R) Forward Pelvis Posture Neutral Weight Distribution Weight Shifted Left,Decreased Wt.Bear on (R) Ankle/Foot Posture (R) Pronated,(R) Calcaneal Eversion Palpation Assessment Location R ankle Palpation Location medial, lateral, dorsum Palpation Findings Edema,Soft Tissue Tightness, Muscle Guarding,Tenderness Palpation Details Moderate swelling on R ankle compared to L ankle. R ankle appears bruised and purple compared to L ankle. No tenderness at R medial or lateral malleoli; no tenderness at R fibular head or navicular or 5th metatarsal . Skin Assessment Circumference Measurement L ankle Measurement (Centimeters) 54 Comments figure 8 R ankle Measurement (Centimeters) 59 Comments figure 8 PT-OP-K Range of Motion Start: 06/18/23 15:26 Freq: Status: Active Protocol: Document 06/18/23 15:27 NM (Rec: 06/18/23 16:44 NM [id number]) Knee Goniometric Range of Motion Knee L knee Knee ROM WFL Yes R knee Knee ROM WFL Yes Ankle and Foot Goniometric Range of Motion Ankle and Foot L ankle Ankle/Foot ROM WFL Yes Testing Position Sitting Dorsiflexion with Knee Flexed 10 Plantarflexion 50 Inversion 30 Eversion 5 R ankle Ankle/Foot ROM WFL No Testing Position Sitting Dorsiflexion with Knee Flexed 3 Plantarflexion 50 Inversion 5 Eversion 10 Comments dorsiflexion and inversion are painful Toe Range of Motion Toe L 1st Toe Toe ROM WFL No MTP Flexion Active (degrees) 45 MTP Extension Active (degrees) 20 R 1st Toe Toe ROM WFL No MTP Flexion Active (degrees) 40 MTP Extension Active (degrees) 20 Comments no pain with movement PT-OP-L Special Tests Start: 06/18/23 15:26 Freq: Status: Active Protocol: Document 06/18/23 15:27 NM (Rec: 06/18/23 16:44 NM [id number]) Special Tests Foot/Ankle Special Tests Syndesmotic Tear tests Test Results negative Comments ER stress test, squeeze test Talor Tilt Test Results negative Comments R ankle Anterior Draw Test Results negative Comments R ankle PT-OP-M Strength Start: 06/18/23 15:26 Freq: Status: Active Protocol: Document 06/18/23 15:27 NM (Rec: 06/18/23 16:44 NM [id number]) Hip Strength Hip Manual Muscle Testing L side Flexion (L2) 5 Normal Extension (S1) 4+ Good+ Abduction 4+ Good+ Adduction 4+ Good+ External Rotation 4+ Good+ Internal Rotation 4+ Good+ R side Flexion (L2) 5 Normal Extension (S1) 4+ Good+ Abduction 4+ Good+ Adduction 4+ Good+ External Rotation 4+ Good+ Internal Rotation 4+ Good+ Knee Strength Knee Manual Muscle Testing L side Flexion (S2) 4+ Good+ Extension (L3) 4+ Good+ R side Flexion (S2) 4- Good- Extension (L3) 4+ Good+ Ankle/Foot Strength Ankle and Foot Manual Muscle Testing L ankle Dorsiflexion (L4) 5 Normal Plantarflexion (S1) 2+ Poor+ Inversion 4 Good Eversion (S1) 4 Good Comments Unable to complete a single heel raise against gravity for plantarflexion MMT. Unable to perform single leg balance. When tested in sitting, 4/5 strength R ankle Dorsiflexion (L4) 4 Good Plantarflexion (S1) 2+ Poor+ Inversion 3+ Fair+ Eversion (S1) 3+ Fair+ Comments Pain with plantarflexion, inversion during MMT Unable to complete a single heel raise against gravity for plantarflexion MMT. When tested in sitting, 3+/5 strength (able to withstand minor resistance). Unable to perform single leg stance due to pain in weight bearing during plantarflexion testing. Toe Strength Toe Manual Muscle Testing Left Great Toe Flexion 4+ Good+ Extension 4+ Good+ Right Great Toe Flexion 4- Good- Extension 4- Good- PT-OP-Q Treatments Start: 06/18/23 15:26 Freq: Status: Active Protocol: Document 08/02/23 07:30 SP (Rec: 08/02/23 08:56 SP [id number]) Therapeutic Exercises Sitting Exercises ankle inversion Sitting Exercise Name reviewed HEP Side right Resistance Dark Blue tb (lvl4)- therapist anchored today Equipment Used sitting Reps/Minutes x15 Comments painfree, cued slower eccentric motion ankle eversion Sitting Exercise Name reviewed HEP Side right Resistance Dark Blue tb (lvl4)- therapist anchored today Equipment Used sitting Reps/Minutes x15 Comments cues for no hip motion; improved ROM; no pain with repetition ankle plantarflexion Sitting Exercise Name Reviewed HEP Side right Resistance dark blue green tb (lvl 4)- wrapped around forefoot Equipment Used sitting Reps/Minutes x15 Comments Cued eccentric slow pacing DF, painfree ankle dorsiflexion Sitting Exercise Name reviewed HEP Side right Resistance dark blue tb (lvl 4)- therapist anchored Equipment Used sitting Reps/Minutes x15 Comments Cued eccentric slow pacing PF, painfree Standing Exercises heel toe walking Standing Exercise Name Heel <> toe rock Side bilateral Resistance from mirror Equipment Used stationary (L foot fwd, R foot back position) Reps/Minutes 60 ea leg Comments cues for eccentric control of PF, the strong PF push off on R star glide Standing Exercise Name eccentric ROM DF/med and Lat stability: RLE stance LE Side right Resistance LLE slider 12, 9, 7 o'clock Reps/Minutes 3 reps review (alternate sets with LLE for RLE recovery) Comments cued knee behind and with mid foot. Eccentric heel raise Standing Exercise Name shoes doffed Equipment Used rail PRN, on blue foam Reps/Minutes 2x10 Comments cued wt shift over RLE little more Manual Therapy Treatment Joint Mobilizations Ankle DF Joint Talocrural, 1-5 MTPs, general forefoot rotation med/lat, Direction A-P Grade II Body Position long sit Comments For pain relief/gentle mob to improve mobility. Pt reports no pain, manual and ed demo self 1-4 MTPs at home. Neuro Re-Education Treatment Balance Activities Hurdles Details lateral stepping (sneakers donned) Surface stable Equipment foam step stones then added hurdles Reps/Duration 4 laps (10 ft ea) Comments For medial/lateral balance; cues for elongated posturing over stance LE, PF toe off RLE and control into LLE advance heel strike, prevent over sway . He states feels off balance and had bout of little light headedness, vasovagal response , recovered with seated rest break. Single Leg Stance Details Muscle re-education Surface blue foam> floor Equipment near rail PRN contact Reps/Duration 5 reps Comments Trialed no [employer] to determine how long pt can stand on RLE = 2sec Cued soft R knee (unlocked), elongated posturing, core/scap complex engagement for assisted stability vs bent over looking to unstable. Praises of improved brief 2 SH before need to contact rail, encouragement to continue try allow R ankle on stabilization. LLE 20 SH PT-OP-T Assessment and Plan Start: 06/18/23 15:26 Freq: Status: Active Protocol: Document 08/02/23 07:30 SP (Rec: 08/02/23 08:56 SP [id number]) Physical Therapy Assessment Goals Five Impairment Balance, Function Impairment Pt is unable to complete any stairs Short Term Goal (STG) Pt will be able to complete at least 2 stairs with RLE leading and with limited UE support for balance. MET 07/19/23 STG Duration 4 weeks MET [facility] Goal (LTG) Pt will be to complete at least 5 stairs with RLE leading and with 1 or no UE support for balance using LRAD in order to ascend/descend deck at home. PARTIALLY MET 07/19/23: able to perform multiple reps of 4 stairs ascending and descending with RLE leading and reciprocally; demos poor eccentric lowering with RLE on step but no reported pain LTG Duration 8 weeks partiall met 07/19/23 Four Impairment swelling Impairment Pt is limited by moderate swelling in R ankle: figure 8 is 59 cm compared to L ankle 54 cm Short Term Goal (STG) Pt will demonstrate a decrease by at least 1 cm in R ankle swelling to allow for greater mobility. MET (06/28): circumference 56. 5 cm 07/19/23: 57 cm STG Duration 4 weeks [employer] Lead Goal (LTG) Pt's R ankle circumference will be at least within 1 cm of the L ankle in order to demonstrate decreased swelling , to allow for greater weight bearing during mobility, and assist with managing pain. NOT MET 07/19/23: 57 cm ( improvement from last session) . Swelling increased as exercises transitioned from seated to weight bearing LTG Duration 8 weeks Three Impairment Strength Impairment Pt with 2+/5 R ankle plantarflexion strength against gravity Short Term Goal (STG) Pt will be able to perform at least 5 bilateral heel raises to demonstrate improved plantarflexion strength NOT MET 07/19/23: unable to perform with equal WB between BLE STG Duration 4 weeks slow progression 07/19 [facility] Goal (LTG) Pt will be able to perform at least 1 unilateral heel raise on ea leg in order to demonstrate improved plantarflexion strength for foot propulsion during gait and during stairs. NOT MET 07/19/23: unable to perform bilaterally LTG Duration 8 weeks Two Impairment ROM Impairment Pt with limited R ankle dorsiflexion ROM (3 deg) Short Term Goal (STG) Pt will improve R ankle dorsiflexion ROM by at least 2 -3 degrees. MET 07/19/23: R ankle DF 8 deg past neutral STG Duration 4 weeks [employer] Lead Goal (LTG) Pt will improve R ankle dorsiflexion ROM by at least 5 degrees for improved ankle stability, balance, and to promote toe clearance while advancing RLE during gait. MET 07/19/23: R ankle DF 8 deg past neutral LTG Duration 8 weeks One Impairment ROM limitations Impairment Pt with limited R ankle inversion ROM (5 deg) Short Term Goal (STG) Pt will improve R ankle inversion ROM by at least 5 degrees. MET 07/19/23: R ankle inversion ROM 25 deg STG Duration 4 weeks MET [facility] Goal (LTG) Pt will improve ankle inversion ROM by at least 15 degrees for improved ankle stability and balance during gait. MET 07/19/23: R ankle inversion ROM 25 deg LTG Duration 8 weeks Assessment Summary Assessment Pt improved facilitation of ankle musclar stabilization with ability to perform SLS 2 SH and uneven viktoriya stepping RLE PF toe off soft knee performance. He reported peroneal soreness but went away with seated rest post hurdles and ankle strengthening TB HEP. Ed for continue icing and elevate R ankle with AROM post for swelling reduction management 2-3x/day and check benefits. Added resisted HS curl for support in R knee stabilization into flexion during LLE advancement. Physical Therapy Plan Frequency and Duration Frequency of Treatment 1x/wk after 07/25 Duration of treatment (weeks) 10 Plan of Care Start Date 06/18/23 Plan of Care End Date 08/23/23 Therapeutic Interventions Therapeutic Interventions Balance Training,Coordination Training,Gait Training,Home Exercise Program,Joint Mobilizations,Manual Therapy, Neuromuscular Re-education, Patient/Caregiver Education, Soft Tissue Mobilization, Therapeutic Activities, Therapeutic Exercises Modalities Cold Pack/Ice Massage,Electric Stimulation,Hot Packs Other Referrals/Consults Referrals/Consults Recommended Pt instructed to follow up with Dr. River to determine if additional imaging needed. Next Visit Focus/Plan Next Note Type Treatment Note Next Visit Plan Next session: Gait training ( hurdles, etc), stair training, balance training (tandem, tandem walking, more SLS uneven foam etc). Start Shuttle recovery/rocker board f/b/lat. POC: Initiate hip (glute max/ med) strengthening and add to HEP B heel raises > single heel raise as tolerated. Emphasize RLE WB
--- NOTE | 2023-08-20 10:08 | PT-OP ANOTE ---
PT called and spoke to Pt on 06/20 at 08:53 regarding end of POC and no remaining appt. Pt states that he cannot afford to attend PT this year as his insurance has changed. Since his POC on 08/23/23 and he declined to make appt after his last appt on 08/02/23, pt is wanting to discharge from PT at this time. He reports that his R ankle continues to be pain free and he is able to perform all ADLs/mobility. PT educated pt on following up with PCP if his R ankle pain returns/changes or for a new referral to PT, which pt verbalizes understanding. Pt will be discharged from PT services
--- NOTE | 2023-08-30 16:36 | PT.OPDS ---
Current Diagnoses Sprain of unspecified ligament of right ankle, initial encounter (08/02/23) Visit Care Team Role Provider Type Lex River MD Attending Provider Physician Family Provider Primary Care Provider Referring Provider Specialty: Internal Medicine Address: [address] [place] [address], [address], [address] Email: [email or web address] Visit Number Visit Number 11 Discharge Summary PT-OP-B Current Condition Start: 06/18/23 15:26 Freq: Status: Active Protocol: Document 06/18/23 15:27 NM (Rec: 06/18/23 16:44 NM [id number]) Current Condition History of Current Condition Onset Date 05/05/23 Current Complaints weakness, difficulty with ambulation, pain, swelling History of Current Condition Pt was walking down his deck stairs when he tripped and fell down several feet to the ground, landing on hi R leg. He was unable to weight bear immediately upon impact and had to be carried into the house by 2 people. Pt then went to the ED the same day where he was evaluated for an ankle fracture; radiographs reveal an anterior calcaneus fracture of the R ankle, but no fractures to the foot. Pt followed up with Dr. River who dx a Grade III sprain and instructed pt to rest, ice, and perform gentle ankle mobility exercises. Pt usually wears a neoprene sleeve for comfort on his R ankle. Currently, pt is able to ambulate household distances using a straight cane. He reports that he was doing better over the past week with his swelling, pain and mobility; however, he did yard work this past Saturday, re- aggravating the injury. Prior Treatments and Tests 05/05/23: Radiograph of R ankle - anterior calcaneus fracture lines 05/05/23: Radiograph of R foot - no displaced fracture Future Testing and Treatments Planned Pt is planning to follow up with Dr. River and is seeking an MRI Treatment Goals Patient/Caregiver Goals To walk again Do yard work again Prior Functional Status Baseline Function- ADL's Independent Baseline Function- Mobility Independent Baseline Function- Gait Did not use an assistive device Current Functional Impairments (Reported) Functional Limitations- ADL's Unable to perform stairs Functional Limitations- Mobility/Gait Unable to ambulate > 100ft without a cane and without pain Functional Limitations- Recreation/ Unable to perform yardwork due Hobbies to pain and weakness PT-OP-C Subjective Start: 06/18/23 15:26 Freq: Status: Active Protocol: Document 08/02/23 07:30 SP (Rec: 08/02/23 08:56 SP [id number]) OP-PT Subjective Patient Comments Patient Comments Pt not using cane now. He said felt ok after last tx but was pretty sore after 07/23 visit , felt little to aggressive. Demonstrates decrease calf toe off, stability in R knee loading and quicker heel strike on L. PT-OP-D Balance Start: 06/18/23 15:26 Freq: Status: Active Protocol: Document 06/18/23 15:27 NM (Rec: 06/18/23 16:44 NM [id number]) OP-PT Balance Assessment Standing Balance Static Standing Balance Ability Fair Dynamic Standing Balance Ability Poor Device Used cane Balance Tests Single Limb Standing Single Limb- Right 0 Single Limb- Left 0 Allen Fall Scale Copyright Permission PT-OP-E Functional Tests Start: 06/18/23 15:26 Freq: Status: Active Protocol: Document 06/18/23 15:27 NM (Rec: 06/18/23 16:44 NM [id number]) Functional Tests Five Times Sit to Stand Test Score 13 sec Comments requires cane for balance PT-OP-F Manual Assessment Start: 06/18/23 15:26 Freq: Status: Active Protocol: Document 06/18/23 15:27 NM (Rec: 06/18/23 16:44 NM [id number]) Manual Assessments Soft Tissue Assessment Soft Tissue Mobility Assessment Mild painful plantarflexion ( full and 10-15 deg) + inversion. No pain with dorsiflexion + inversion. No pain with eversion + dorsiflexion or plantarflexion ranges. Joint Mobility Assessment Joint Mobility Assessment Good accessory joint motion at talocrural, subtalar joints. Limited ray mobility on R foot . PT-OP-G Mobility & Gait Start: 06/18/23 15:26 Freq: Status: Active Protocol: Document 06/18/23 15:27 NM (Rec: 06/18/23 16:44 NM [id number]) OP Gait Assessment Gait Gait Assistance Required: Independent Distance (Feet) 100 Able to Maintain Weight Bearing Status Yes During Gait Assistive Devices Assistive Device Straight Cane Orthotic/Prosthetic Devices or Brace: No Gait Deviations General Gait Pattern Antalgic,Decreased Stride Length,Wide Based Gait Factors Limiting Gait Function Factors Limiting Gait Function Decreased Strength,Limited Range of Motion,Pain Comments Gait Comments Pt presented with cane on R side. Educated during evaluation on correct placement on L side to offload RLE during stance. Overall, antalgic gait with wider stance for stability. PT-OP-H Neuro Start: 06/18/23 15:26 Freq: Status: Active Protocol: Document 06/18/23 15:27 NM (Rec: 06/18/23 16:44 NM [id number]) Sensation Evaluation Comments Summary Comments Some decreased light touch sensation to dorsum of R foot compared to L foot, but no other changes to R ankle/foot. PT-OP-J Posture/Palpation/Skin Start: 06/18/23 15:26 Freq: Status: Active Protocol: Document 06/18/23 15:27 NM (Rec: 06/18/23 16:44 NM [id number]) Posture Evaluation Position Standing Evaluation View Lateral Head/C-Spine Posture Flexed Shoulder Posture (L) Forward,(R) Forward Pelvis Posture Neutral Weight Distribution Weight Shifted Left,Decreased Wt.Bear on (R) Ankle/Foot Posture (R) Pronated,(R) Calcaneal Eversion Palpation Assessment Location R ankle Palpation Location medial, lateral, dorsum Palpation Findings Edema,Soft Tissue Tightness, Muscle Guarding,Tenderness Palpation Details Moderate swelling on R ankle compared to L ankle. R ankle appears bruised and purple compared to L ankle. No tenderness at R medial or lateral malleoli; no tenderness at R fibular head or navicular or 5th metatarsal . Skin Assessment Circumference Measurement L ankle Measurement (Centimeters) 54 Comments figure 8 R ankle Measurement (Centimeters) 59 Comments figure 8 PT-OP-K Range of Motion Start: 06/18/23 15:26 Freq: Status: Active Protocol: Document 06/18/23 15:27 NM (Rec: 06/18/23 16:44 NM [id number]) Knee Goniometric Range of Motion Knee L knee Knee ROM WFL Yes R knee Knee ROM WFL Yes Ankle and Foot Goniometric Range of Motion Ankle and Foot L ankle Ankle/Foot ROM WFL Yes Testing Position Sitting Dorsiflexion with Knee Flexed 10 Plantarflexion 50 Inversion 30 Eversion 5 R ankle Ankle/Foot ROM WFL No Testing Position Sitting Dorsiflexion with Knee Flexed 3 Plantarflexion 50 Inversion 5 Eversion 10 Comments dorsiflexion and inversion are painful Toe Range of Motion Toe L 1st Toe Toe ROM WFL No MTP Flexion Active (degrees) 45 MTP Extension Active (degrees) 20 R 1st Toe Toe ROM WFL No MTP Flexion Active (degrees) 40 MTP Extension Active (degrees) 20 Comments no pain with movement PT-OP-L Special Tests Start: 06/18/23 15:26 Freq: Status: Active Protocol: Document 06/18/23 15:27 NM (Rec: 06/18/23 16:44 NM [id number]) Special Tests Foot/Ankle Special Tests Syndesmotic Tear tests Test Results negative Comments ER stress test, squeeze test Talor Tilt Test Results negative Comments R ankle Anterior Draw Test Results negative Comments R ankle PT-OP-M Strength Start: 06/18/23 15:26 Freq: Status: Active Protocol: Document 06/18/23 15:27 NM (Rec: 06/18/23 16:44 NM [id number]) Hip Strength Hip Manual Muscle Testing L side Flexion (L2) 5 Normal Extension (S1) 4+ Good+ Abduction 4+ Good+ Adduction 4+ Good+ External Rotation 4+ Good+ Internal Rotation 4+ Good+ R side Flexion (L2) 5 Normal Extension (S1) 4+ Good+ Abduction 4+ Good+ Adduction 4+ Good+ External Rotation 4+ Good+ Internal Rotation 4+ Good+ Knee Strength Knee Manual Muscle Testing L side Flexion (S2) 4+ Good+ Extension (L3) 4+ Good+ R side Flexion (S2) 4- Good- Extension (L3) 4+ Good+ Ankle/Foot Strength Ankle and Foot Manual Muscle Testing L ankle Dorsiflexion (L4) 5 Normal Plantarflexion (S1) 2+ Poor+ Inversion 4 Good Eversion (S1) 4 Good Comments Unable to complete a single heel raise against gravity for plantarflexion MMT. Unable to perform single leg balance. When tested in sitting, 4/5 strength R ankle Dorsiflexion (L4) 4 Good Plantarflexion (S1) 2+ Poor+ Inversion 3+ Fair+ Eversion (S1) 3+ Fair+ Comments Pain with plantarflexion, inversion during MMT Unable to complete a single heel raise against gravity for plantarflexion MMT. When tested in sitting, 3+/5 strength (able to withstand minor resistance). Unable to perform single leg stance due to pain in weight bearing during plantarflexion testing. Toe Strength Toe Manual Muscle Testing Left Great Toe Flexion 4+ Good+ Extension 4+ Good+ Right Great Toe Flexion 4- Good- Extension 4- Good- PT-OP-T Assessment and Plan Start: 06/18/23 15:26 Freq: Status: Active Protocol: Document 08/30/23 13:32 NM (Rec: 08/30/23 13:45 NM [id number]) Physical Therapy Assessment Goals Six Impairment Gait, Function Impairment Pt unable to ambulate >100 ft without pain Short Term Goal (STG) Pt will be able to ambulate at least 200 ft using LRAD for community ambulation. 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 MET 07/19/23: per pt report, he walked 2.5 mi at [facility] without his cane and without pain LTG Duration 8 weeks MET Five Impairment Balance, Function Impairment Pt is unable to complete any stairs Short Term Goal (STG) Pt will be able to complete at least 2 stairs with RLE leading and with limited UE support for balance. MET 07/19/23 STG Duration 4 weeks MET Clay [employer] Helper Goal (LTG) Pt will be to complete at least 5 stairs with RLE leading and with 1 or no UE support for balance using LRAD in order to ascend/descend deck at home. PARTIALLY MET 07/19/23: able to perform multiple reps of 4 stairs ascending and descending with RLE leading and reciprocally; demos poor eccentric lowering with RLE on step but no reported pain LTG Duration 8 weeks partiall met 07/19/23 Four Impairment swelling Impairment Pt is limited by moderate swelling in R ankle: figure 8 is 59 cm compared to L ankle 54 cm Short Term Goal (STG) Pt will demonstrate a decrease by at least 1 cm in R ankle swelling to allow for greater mobility. MET (06/28): circumference 56. 5 cm 07/19/23: 57 cm STG Duration 4 weeks Fdc Goal (LTG) Pt's R ankle circumference will be at least within 1 cm of the L ankle in order to demonstrate decreased swelling , to allow for greater weight bearing during mobility, and assist with managing pain. NOT MET 07/19/23: 57 cm ( improvement from last session) . Swelling increased as exercises transitioned from seated to weight bearing LTG Duration 8 weeks Three Impairment Strength Impairment Pt with 2+/5 R ankle plantarflexion strength against gravity Short Term Goal (STG) Pt will be able to perform at least 5 bilateral heel raises to demonstrate improved plantarflexion strength NOT MET 07/19/23: unable to perform with equal WB between BLE STG Duration 4 weeks slow progression 07/19 Clay Dry Press Helper Goal (LTG) Pt will be able to perform at least 1 unilateral heel raise on ea leg in order to demonstrate improved plantarflexion strength for foot propulsion during gait and during stairs. NOT MET 07/19/23: unable to perform bilaterally LTG Duration 8 weeks Two Impairment ROM Impairment Pt with limited R ankle dorsiflexion ROM (3 deg) Short Term Goal (STG) Pt will improve R ankle dorsiflexion ROM by at least 2 -3 degrees. MET 07/19/23: R ankle DF 8 deg past neutral STG Duration 4 weeks Fdc Goal (LTG) Pt will improve R ankle dorsiflexion ROM by at least 5 degrees for improved ankle stability, balance, and to promote toe clearance while advancing RLE during gait. MET 07/19/23: R ankle DF 8 deg past neutral LTG Duration 8 weeks One Impairment ROM limitations Impairment Pt with limited R ankle inversion ROM (5 deg) Short Term Goal (STG) Pt will improve R ankle inversion ROM by at least 5 degrees. MET 07/19/23: R ankle inversion ROM 25 deg STG Duration 4 weeks MET Clay [employer] Press Helper Goal (LTG) Pt will improve ankle inversion ROM by at least 15 degrees for improved ankle stability and balance during gait. MET 07/19/23: R ankle inversion ROM 25 deg LTG Duration 8 weeks Progress Towards Goals Progress Towards Goals Progressing Toward Goals,Slow Progress due to Activity Tolerance,Slow Progress due to Attendance Issues,Goals Met Progress Comments Met 3 LTG, progressing toward others Assessment Summary Assessment Pt has been seen in clinic since June 2023 for R ankle pain s/p sprain and calcaneal fracture. He has not attended a PT appointment since 08/02/23 and canceled remaining 3 appointments. At 08/02 session he reported ankle soreness with activity in previous session but denies ankle pain. Sessions focused on strengthening R ankle and gait training due to poor propulsion and toe off. His POC on 08/23/23 and pt canceled appt in August leading up to expiration. When PT called to speak to pt on about upcoming appointments, pt reported that his ankle has not been hurting and he could no longer afford to come to PT due to changes in insurance. He wants to discharge from PT services due to ending POC and financial reasons. Pt has met 3 LTGs regarding ROM and was progressing toward other functional strengthening goals , having partially met 1 goal. He no longer ambulates with an assistive device and reports that he is able to ambulate at least 2.5 mi on without pain. PT educated pt to follow up with PCP if he has any pain or symptoms change with his R ankle, which pt verbalizes understanding. Physical Therapy Plan Discharge Physical Therapy Discharge Reasons Patient Request Discharge Comments PT spoke with pt on 06/20 as POC was expiring and pt asked to discharge due to finances. Has canceled all appts since last visit on 08/02/23 Next Visit Focus/Plan Next Visit Plan Discharge from PT services
== END 2023-09-25 13:31 | disposition home or self-care (01) ==
LOC: PHYS 07:30
PROVIDERS: Family Provider Internal Medicine; PCP Internal Medicine; Referring Provider Internal Medicine; Visit Provider Internal Medicine
DX: S93.401A Sprain of unspecified ligament of right ankle, initial encounter (principal)
CPT/HCPCS: 97110; 97112; 97116; 97140; 97162

== ENCOUNTER → 2023-10-31 11:45 | Outpatient (CLI) | payer OTHER, SELFPAY ==
[2023-10-31 12:18] LABS: Add Manual Diff / Slide Review NO; Basophils Absolute Auto 100 /uL (0-100); Basophils Percent Auto 0.9 % (0-2); Eosinophils Absolute Auto 100 /uL (0-450); Eosinophils Percent Auto 1.7 % (2-4); Hematocrit 38.9 % (41-53); Hemoglobin 13.2 g/dL (13.5-17.5); Lymphocytes Absolute Auto 2400 /uL (1100-4500); Lymphocytes Percent Auto 29.1 % (25-40); Mean Corpuscular HGB Conc 33.8 % (30-36); Mean Corpuscular Hemoglobin 29.4 PG (26-34); Mean Corpuscular Volume 87.1 fL (80-100); Monocytes Absolute Auto 800 /uL (0-900); Monocytes Percent Auto 9.3 % (3-14); Neutrophils Absolute Auto 4900 /uL (1500-7000); Platelet Count 246 X10^3/uL (150-400); Red Blood Cell Count 4.47 X10^6/uL (4.5-5.9); Red Cell Distribution Width 14.9 % (11.6-14.8); White Blood Cell Count 8.3 X10^3/uL (4.5-11.0)
[2023-10-31 12:38] LABS: Erythrocyte Sedimentation Rate 28 MM/HR (0-15)
[2023-10-31 12:47] LABS: Alanine Aminotransferase 20 IU/L (<50); Albumin 3.9 g/dL (3.5-5.0); Albumin Globulin Ratio 1.2 (1.0-2.8); Alkaline Phosphatase 135 U/L (38-126); Aspartate Aminotransferase 24 IU/L (17-59); BUN Creatinine Ratio 14.6 (6-22); Bilirubin Total 0.7 mg/dL (0.2-1.3); Blood Urea Nitrogen 14 mg/dL (9-20); C-Reactive Protein Quant 0.9 mg/dL (<1.0); Calcium 9.3 mg/dL (8.4-10.2); Carbon Dioxide 26 mmol/L (22-32); Chloride 108 mmol/L (98-107); Creatine Kinase 113 U/L (55-170); Estimated Glomerular Filt Rate > 60 mL/min (>60); Globulin 3.2 g/dL (1.7-4.1); Glucose 88 mg/dL (80-110); HEMOLYSIS < 15 (0-50); Potassium 4.3 mmol/L (3.4-5.1); Sodium 136 mmol/L (137-145); Total Protein 7.1 g/dL (6.3-8.2)
[2023-10-31 13:08] LABS: TSH w/ Reflex to FT4 2.69 uIU/mL (0.47-4.68)
== END ==
LOC: LAB 11:47
PROVIDERS: Family Provider Internal Medicine; PCP Internal Medicine; Referring Provider Internal Medicine; Visit Provider Internal Medicine
DX: K59.00 Constipation, unspecified (principal); R25.2 Cramp and spasm; M19.90 Unspecified osteoarthritis, unspecified site
CPT/HCPCS: 36415; 80053; 82550; 84443; 85025; 85651; 86140

== ENCOUNTER 2024-02-28 12:52 | Day surgery (SDC) | payer MEDICARE, OTHER, SELFPAY ==
--- NOTE | 2024-02-28 | PATH_ITS ---
[facility] Accession Number: [id number] No. of containers..02 Tissue . 01 Material submitted: . PART A: colon - DESCENDING COLON POLYP PART B: rectum - RECTAL POLYP . 01 Diagnosis: A. DESCENDING COLON, POLYP: Tubular adenoma. . B. RECTUM, POLYP: Hyperplastic polyp. [facility] 03/03/2024 0843 Local . 01 Electronically signed: . Kiara Marks MD, Pathologist NPI- [id number] . 01 Gross description: . A. Received in formalin, labeled with two patient identifiers and descending colon polyp, are two welch soft tissue fragments measuring 0.3-0.4 cm in greatest dimension. Submitted in cassette A1. B. Received in formalin, labeled with two patient identifiers and rectal polyp, are three welch soft tissue fragment measuring 0.3-0.4 cm in greatest dimension. Submitted in cassette B1. ([id number]) /[facility] 02/29/2024 1449 Local . 01 Pathologist provided ICD-10: D12.4 . 01 CPT . 553499, [id number] Specimen Comment: A courtesy copy of this report has been sent to [phone] Performed at: [address] [address], [place], [place] [id number] MD Ottoniel Juarez MD Phone: [phone]
[2024-02-28 13:45] VITALS: BP 147/74; PULSE 52; RESP 14; TEMP 36.6; O2SAT 98
[2024-02-28] MEDS: LACTATED RINGERS 1,000 ML 42 ML IV (13:55)
--- NOTE | 2024-02-28 14:37 | PM.HP.1 ---
History of Present Illness History of Present Illness Date Patient Seen: 02/28/24 Time Patient Seen: 14:[address]: [facility] Narrative: 73-year-old male here for diagnostic colonoscopy. Notes a change in bowel function over the past year with marked constipation. No prior colonoscopy. No family history of colon cancer. [facility] Medical History (Updated 01/23/24 @ 11:41 by Lex River MD) Constipation Generalized anxiety disorder Vision disorder Hearing loss Surgical History (Updated 02/28/20 @ 19:40 by Zeinab Jones) Anesthesia S/P tonsillectomy and adenoidectomy (~1960) Family History (Updated 02/28/20 @ 19:40 by Zeinab Jones) Mother Diabetes mellitus Heart disease Father Heart disease Social History Smoking Status: Former smoker Meds Home Medications and Allergies Home Medications Medication Instructions Recorded Confirmed Type sodium,potassium,mag sulfates 17.5 See Rx Instructions PO .COMPLEX 02/06/24 02/28/24 Rx gram-3.13 gram-1.6 gram oral soln #354 mL (Suprep Bowel Prep Kit) Allergies Allergy/AdvReac Type Severity Reaction Status Date / Time No Known Drug Allergies Allergy Verified 02/28/24 13:45 Exam Vital Signs (past 8 hours): - 02/28/24 13:45 Temperature 97.8 F Pulse Rate 52 L Respiratory Rate 14 Blood Pressure 147/74 H Pulse Oximetry 98 Oxygen Delivery Method Room Air Oxygen Delivery Method Room Air Narrative Exam Narrative: General adult man alert oriented no acute distress Chest nonlabored respiration Extremities warm well perfused Assessment & Plan Assessment & Plan narrative: Diagnostic colonoscopy recommended for altered bowel function. Technical details were discussed. Risks, benefits, alternatives explained. Risks including but not limited to myocardial infarction, aspiration, bleeding, pain, missed lesion, incomplete examination, need for further radiographic studies, intestinal injury, and need for major abdominal surgery were discussed. All questions were answered to their satisfaction, and they are in agreement with this plan. Time-Based Coding :: [TOTAL MINUTES] spent with patient and on the chart (including review of chart, obtaining history, exam, reviewing outside data, placing orders, documenting exam and treatment plan, and counseling patient) on [DATE].
[2024-02-28 15:09] VITALS: BP 132/78; PULSE 60; RESP 14; TEMP 36.2; O2SAT 95
[2024-02-28 15:14] VITALS: BP 131/74; PULSE 56; RESP 12; O2SAT 96
--- NOTE | 2024-02-28 15:15 | P.OP.COLON_ITS ---
Operative Date/Time/Diagnoses Date of procedure: 02/28/24 Time of procedure: 15:15 Pre-op diagnosis: Altered bowel function Post-op diagnosis: other (Colonic polyp x2) Procedure & Clinicians Study performed: Diagnostic colonoscopy Same procedure as scheduled: Yes Indications: Altered bowel function Surgeon: Evangelist Hernandez Procedure Notes Procedure in detail: The history and physical was performed/updated and the patient is ASA class is 1. The procedure was discussed in detail with the patient. Potential risks complications including infection, bleeding, missed diagnosis, perforation, need for surgery, and were explained. Their questions were answered and informed consent was obtained. Patient was brought to the procedure room and placed standard monitoring equipment. The patient's vital signs were monitored continuously throughout the entire procedure. Prior to starting time-out was performed. The patient was placed in the left lateral recumbent position. Procedural sedation was administered by anesthesia. Examination began with a thorough inspection of the perianal area there was no evidence of fissures, fistulae, external hemorrhoids or cutaneous malignancy. The colonoscopy scope was then placed into the anal canal and was advanced to the cecum, which was identified by the ileocecal valve, the appendiceal orifice and the confluence of the taenia. The scope was then slowly withdrawn examining colon thoroughly in all directions, irrigating it of any residual stool. The scope was retroflexed within the rectum The patient tolerated the procedure well. They will be discharged once criteria are met. The prep was of good/excellent quality. The withdrawl time was 7 minutes. FINDINGS * Descending colon polyp 70 cm from the verge sessile removed with Jumbo forceps 5 mm * Rectum 3 mm polyp removed with Jumbo forceps sessile Specimen(s): other (Descending and rectal polyps) Impression: Colonic polyps x2 Post-procedure Plan for aftercare: Follow up dependent on pathology findings Disposition: same day surgery
[2024-02-28 15:19] VITALS: BP 111/72; PULSE 52; RESP 15; O2SAT 98
[2024-02-28 15:20] VITALS: BP 146/75; PULSE 58; RESP 14; TEMP 36.3; O2SAT 96
== END 2024-02-28 15:30 | disposition home or self-care (01) ==
PROVIDERS: Family Provider Internal Medicine; PCP Internal Medicine; Referring Provider Surgery; Visit Provider Surgery
PROC: 0DJD8ZZ Inspection of Lower Intestinal Tract, Via Natural or Artificial Opening Endoscopic (ICD-10-PCS; CPT 45378; principal; 2024-02-28 14:15)
DX: R19.4 Change in bowel habit (principal); D12.4 Benign neoplasm of descending colon; K62.1 Rectal polyp
CPT/HCPCS: 45380; J2704

== ENCOUNTER → 2025-04-14 | Outpatient (CLI) | payer MEDICARE, OTHER, SELFPAY ==
--- NOTE | 2025-04-14 09:01 | DI.ECHO.S_ITS ---
[facility] : : [address] : : [place] : : [address] : : Phone: [phone] Echocardiogram Report + + :Name: GANGA COLLINS Study Date: 04/14/2025 Height: 70 in : :[facility] ReadingLocation: Weight: 180 lb : : Gender: Male BSA: 2.0 m2 : :: 1950 Age: 74 yrs BP: 145/80 mmHg: :Reason For Study: TIA : :Ordering Physician: LISANDRA, : :SADIA Newsome Performed By: Nemesio Guillen : :Referring: SADIA FRY : + + Interpretation Summary The patient was in sinus bradycardia with heart rates between 41-45 bpm during the exam. Left ventricular wall thickness is mildly increased. The ejection fraction is estimated to be 55-60%. Diastolic function was not assessed. The right ventricle is normal in size and function. Doppler interrogation and injection of saline echo contrast shows no evidence for an interatrial shunt. No significant valvular abnormalities. The right ventricular systolic pressure is estimated to be at least 28 mmHg based on an estimated right atrial pressure of 3 mm Hg. Procedure: A two-dimensional transthoracic echocardiogram with color flow and Doppler was performed. The study quality was technically adequate. A saline contrast injection was performed to assess for cardiac shunting. A contrast injection of Definity was performed to improve assessment of LV function. There is no prior echocardiogram noted for this patient. The heart rate ranged between 41-45 bpm during the study. The patient was in sinus bradycardia with heart rates between 41-45 bpm during the exam. Left Ventricle: The left ventricle is normal in size. Left ventricular wall thickness is mildly increased. There is no thrombus. The ejection fraction is estimated to be 55-60%. There are no focal wall motion abnormalities. Diastolic function was not assessed. Right Ventricle: The right ventricle is normal in size and function. Atria: The left atrial size is normal. Right atrial size is normal. Bubble study was captured on image frame(s) # [id number]. Doppler interrogation and injection of saline echo contrast shows no evidence for an interatrial shunt. Mitral Valve: The mitral valve leaflets appear to open well. There is no mitral valve stenosis. There is trace mitral regurgitation. Aortic Valve: The aortic valve is trileaflet. The aortic valve opens well. There is no aortic valve stenosis. No aortic regurgitation is present. Tricuspid Valve: The tricuspid valve leaflets are thin and pliable. There is trace tricuspid regurgitation. The right ventricular systolic pressure is estimated to be at least 28 mmHg based on an estimated right atrial pressure of 3 mm Hg. Pulmonic Valve: The pulmonic valve is not well seen, but is grossly normal. There is trace pulmonic regurgitation. Great Vessels: The aortic root is normal size. The ascending aorta is normal in size. The aortic arch could not be visualized. The IVC is of normal diameter and collapses greater than 50% with a sniff. This suggests a low right atrial pressure of 3 mm Hg. Pericardium/ Pleura There is no pericardial effusion. MMode/2D Measurements & Calculations LVIDd: 4.7 cm LVOT diam: 2.3 cm LVIDs: 3.1 cm Ao root diam: 3.5 cm FS: 34.3 % asc Aorta Diam: 3.8 cm IVSd: 1.3 cm LVPWd: 1.2 cm LV loya. diameter/BSA (cm/m^2): 2.3 LV sys. diameter/BSA (cm/m^2): 1.5 LA A2 area: 18.9 cm2 RA long axis: 4.9 cm LA A4 area: 15.3 cm2 RA area: 15.4 cm2 LA length (vol): 5.1 cm RA vol: 41.3 ml LA vol: 48.5 ml RA : 20.7 ml/m2 LA vol index: 24.3 ml/m2 IVC diam: 2.2 cm RVD1 (basal): 2.9 cm RVD2 (mid): 2.3 cm TAPSE: 2.3 cm Doppler Measurements & Calculations Ao V2 max: 99.4 cm/sec LVOT Max Rober: 98.0 cm/sec Ao V2 mean: 65.5 cm/sec LV V1 max P.8 mmHg Ao max P.0 mmHg LV V1 VTI: 21.0 cm Ao mean P.0 mmHg BRANDON(I,D): 4.1 cm2 Ao V2 VTI: 21.7 cm BRANDON(V,D): 4.1 cm2 sev ratio: 0.97 BRANDON indexed to BSA (cm^2/m^2): 2.0 MV E max rober: 64.8 cm/sec TR max rober: 249.0 cm/sec MV A max rober: 52.8 cm/sec TR max P.8 mmHg MV E/A: 1.2 PA V2 max: 105.2 cm/sec MV dec time: 0.20 sec PA V2 mean: 72.6 cm/sec PA mean P.4 mmHg PA pr(Accel): 29.3 mmHg SV(LVOT): 88.3 ml Reading Physician:01:35 PM
--- NOTE | 2025-04-14 09:01 | DI.MRI.S_ITS ---
PROCEDURE: MR HEAD/BRAIN WO CON INDICATIONS: tia TECHNIQUE: Noncontrast axial T1 spin echo, axial T2 fast spin echo, sagittal and axial FLAIR, coronal T2 fast spin echo, axial gradient echo, axial diffusion and ADC through the brain. COMPARISON: None. FINDINGS: Image quality: Image quality degraded by patient motion artifact. CSF Spaces: Basal cisterns are patent. No extra-axial fluid collections. Ventricles are normal in size and shape. Brain: No intracranial masses or hemorrhage. There is mild, diffuse cerebral volume loss. Campbell/white matter interface is normal. Brainstem appears normal. Diffusion-weighted images demonstrate no acute infarct. No chronic ischemic insults. Normal intravascular flow voids are present. Skull and face: Calvarium has normal marrow signal. Orbits appear normal. Incidental Tornwaldt cyst. Sinuses: Small right maxillary sinus mucous retention cyst. Fluid in the dependent portions of the left mastoid air cells. IMPRESSION: No acute intracranial disease process. No acute or chronic infarcts. No abnormal intracranial mass or intracranial hemorrhage. Dictated by: Michelle Mason MD, PhD on 04/14/2025 at 12:11 Approved by: Michelle Mason MD, PhD on 04/14/2025 at 12:13
--- NOTE | 2025-04-14 09:01 | DI.MRI.S_ITS ---
PROCEDURE: MR ANGIO HEAD WO CON INDICATIONS: tia TECHNIQUE: Noncontrast axial 3-D [id number] MR angiogram, with 3-dimensional maximum intensity projection (MIP) reformats of the internal carotid arteries and posterior circulation then performed. COMPARISON: None. FINDINGS: Image quality: Excellent. Anterior circulation: Intracranial internal carotid arteries demonstrate normal size and intraluminal flow signal. The flow within the paired anterior cerebral arteries is normal and symmetric. The flow within the middle cerebral arteries is normal and symmetric. The anterior communicating artery is seen. No stenoses, occlusions, or aneurysms. Posterior circulation: Visualized portions of the vertebral arteries demonstrate normal caliber, and join to form a normal appearing basilar artery. The flow within the posterior cerebral arteries is normal and symmetric. No stenoses, occlusions, or aneurysms. IMPRESSION: Negative examination. No large vessel occlusion, vascular stenosis, vascular dissection or aneurysm. Dictated by: Michelle Mason MD, PhD on 04/14/2025 at 12:14 Approved by: Michelle Mason MD, PhD on 04/14/2025 at 12:16
--- NOTE | 2025-04-14 09:01 | DI.US.S_ITS ---
PROCEDURE: US CAROTID DOPPLER BI INDICATIONS: tia TECHNIQUE: Color and pulse Doppler interrogation was performed of both carotid systems, with image documentation and velocity measurements. COMPARISON: None. FINDINGS: Stenosis calculations are based on SRU (Society of [employer] in Ultras[employer]) criteria. Right side: Brachial blood pressure: 134/71 mm Hg. Common carotid artery peak systolic velocity: 61 cm/sec. Internal carotid artery peak systolic velocity: 83 cm/sec. Internal carotid artery end diastolic velocity: 28 cm/sec. External carotid artery peak systolic velocity: 82 cm/sec. ICA/CCA peak systolic ratio: 1.4 . Campbell scale imaging description: Mild scattered plaque. Complex right thyroid nodule measuring 1.6 cm. Percent internal carotid artery stenosis: Less than 50% . Vertebral artery: Flow direction is antegrade. Left side: Brachial blood pressure: 126/72 mm Hg. Common carotid artery peak systolic velocity: 56 cm/sec. Internal carotid artery peak systolic velocity: 92 cm/sec. Internal carotid artery end diastolic velocity: 36 cm/sec. External carotid artery peak systolic velocity: 75 cm/sec. ICA/CCA peak systolic ratio: 1.7 . Campbell scale imaging description: Mild scattered plaque. Percent internal carotid artery stenosis: Less than 50% . Vertebral artery: Flow direction is antegrade. IMPRESSION: Less than 50% bilateral internal carotid artery stenosis. Right thyroid nodule. When clinically feasible, recommend formal thyroid ultrasound. Dictated by: [facility] Interpreted: Rodrigo Morales MD on 04/14/2025 at 14:22 Transcribed by: OSVALDO on 04/14/2025 at 14:25 Approved by: Rodrigo Morales M.D. on 05/12/2025 at 12:17
== END ==
PROVIDERS: Family Provider Internal Medicine; PCP Internal Medicine; Referring Provider Internal Medicine; Visit Provider Internal Medicine
DX: G45.9 Transient cerebral ischemic attack, unspecified (principal); J34.1 Cyst and mucocele of nose and nasal sinus; E04.1 Nontoxic single thyroid nodule
CPT/HCPCS: 70544; 70551; 93306; 93880; Q9957

== ENCOUNTER → 2025-04-15 09:29 | Outpatient (CLI) | payer MEDICARE, OTHER, SELFPAY | PROVIDERS: Family Provider Internal Medicine; PCP Internal Medicine; Referring Provider Internal Medicine; Visit Provider Internal Medicine | DX: Z86.73 Personal history of transient ischemic attack (TIA), and cerebral infarction without residual deficits (principal) | CPT/HCPCS: 93246 ==